=== PATIENT | male | born 1940 | race Caucasian/White ===

== ENCOUNTER 2019-06-04 13:26 | Outpatient (RCR) | payer MEDICARE, SELFPAY | END 2019-06-13 23:59 | disposition home or self-care (01) | LOC: WOUND 13:26 | PROVIDERS: Family Provider Registered Nurse; PCP Registered Nurse; Visit Provider Nurse Practitioner Family | DX: E11.621 Type 2 diabetes mellitus with foot ulcer (principal); L97.522 Non-pressure chronic ulcer of other part of left foot with fat layer exposed; L97.512 Non-pressure chronic ulcer of other part of right foot with fat layer exposed; I96 Gangrene, not elsewhere classified; S90.511A Abrasion, right ankle, initial encounter; X58.XXXA Exposure to other specified factors, initial encounter | CPT/HCPCS: 11042 ==

== ENCOUNTER 2019-06-30 13:29 | Outpatient (RCR) | payer MEDICARE, SELFPAY | END 2019-07-12 23:59 | disposition home or self-care (01) | LOC: WOUND 13:29 | PROVIDERS: Family Provider Registered Nurse; PCP Registered Nurse; Visit Provider Nurse Practitioner Family | DX: E11.621 Type 2 diabetes mellitus with foot ulcer (principal); L97.522 Non-pressure chronic ulcer of other part of left foot with fat layer exposed; S90.511A Abrasion, right ankle, initial encounter; X58.XXXA Exposure to other specified factors, initial encounter | CPT/HCPCS: 11042; 99214 ==

== ENCOUNTER 2019-08-11 14:35 | Outpatient (RCR) | payer MEDICARE, SELFPAY | END 2019-08-12 23:59 | disposition home or self-care (01) | LOC: WOUND 14:35 | PROVIDERS: Family Provider Registered Nurse; PCP Registered Nurse; Visit Provider Nurse Practitioner Family | DX: E11.621 Type 2 diabetes mellitus with foot ulcer (principal); L97.522 Non-pressure chronic ulcer of other part of left foot with fat layer exposed; S90.511A Abrasion, right ankle, initial encounter; X58.XXXA Exposure to other specified factors, initial encounter | CPT/HCPCS: 11042 ==

== ENCOUNTER 2019-09-08 15:41 | Outpatient (RCR) | payer MEDICARE, SELFPAY | END 2019-09-11 23:59 | disposition home or self-care (01) | LOC: WOUND 15:41 | PROVIDERS: Family Provider Registered Nurse; PCP Registered Nurse; Visit Provider Emergency Medicine | DX: E11.621 Type 2 diabetes mellitus with foot ulcer (principal); L97.523 Non-pressure chronic ulcer of other part of left foot with necrosis of muscle; S90.511A Abrasion, right ankle, initial encounter; X58.XXXA Exposure to other specified factors, initial encounter | CPT/HCPCS: 11042 ==

== ENCOUNTER 2019-09-08 16:59 | Inpatient (IN) | payer MEDICARE, SELFPAY ==
[2019-09-08 17:05] VITALS: BP 117/80; PULSE 104; RESP 20; TEMP 37; O2SAT 97; BMI 27.9
--- NOTE | 2019-09-08 17:20 | ED_ITS ---
HPI - Extremity Problem General: Chief complaint: Extremity Problem,Nontraumatic Stated complaint: SENT FROM WOUND CARE Time Seen by Provider: 09/08/19 17:03 History of Present Illness: HPI Narrative: 79-year-old male who sent to the emergency room from the wound clinic. He has been being seen at the wound clinic intermittently been absent from there for some time he previously had a transmetatarsal amputation by Dr. Diaz about a year and 1/2 to 2 years ago according to the patient. He does not have a primary care doctor he is rather noncompliant unfortunately he is has bilateral foot ulcers on the lateral aspect of the right foot proximal to the amputation line and also anterior to the ankle of the left foot. There is drainage from the right foot ulcer and it appears to be tracking up into the foot. There is more of a superficial ulcer on the anterior to the left ankle. He has redness and erythema and swelling on the right leg to the level of the thigh and hip. He denies any fever. Patient states he does have some cough that is been going on for last 3 to 4 months nothing seems to exacerbate it or relieve it. He has not had any change in sputum production. Denies any other symptoms no chest pain no abdominal pain normal bowel and bladder function for him which she states is usually very loose stools. He has known history of coronary disease and peripheral vascular disease and has had bilateral lower extremity angioplasty and stenting done in the past. MD Complaint: extremity pain and extremity swelling Onset (ago): week(s) Pain Consistency: intermittent Location: left and right Associated symptoms: Deny chest pain, fever(s) or rash Review of Systems Const: Denies: fever, chills, body aches, change in appetite, fatigue or malaise ENMT: Denies: throat pain, ear pain, nasal discharge or nasal congestion Card: Denies: chest pain, edema, shortness of breath on exertion or shortness of breath when lying down Resp: Reports: non-productive cough; Denies: shortness of breath or productive cough GI: Denies: abdominal pain, nausea, vomiting, vomiting blood, coffee grounds in vomit, diarrhea, constipation, bloating, blood in stool or black tarry stool : Denies: flank pain, painful urination, urinary frequency or urinary urgency Skin/Breast: Reports: other (Foot ulcers bilaterally); Denies: rash or itching PFSH ED PFSH: Medical History CAD (coronary artery disease) Diabetes Diabetic foot ulcer Heart failure with reduced ejection fraction Severely reduced ejection fraction 20% Hypertension PAD (peripheral artery disease) Syncope Due to hypoglycemia Surgical History 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) S/P peripheral artery angioplasty with stent placement Family History Denies family history of Hyperlipidemia Lung disease Hypertension Social History (Updated 09/08/19 @ 20:53 by Jaret Robert MD) Smoking and tobacco status: former smoker Alcohol intake: current Alcohol intake frequency: 3 or more drinks per day Alcohol type: beer Housing: Other Details: Lives alone Physical Exam Const: COMMON NORMALS: no apparent distress GENERAL APPEARANCE: cooperative and comfortable ORIENTATION/CONSCIOUSNESS: Yes awake, Yes oriented to person, Yes oriented to place and Yes oriented to time HENMT: COMMON NORMALS: normocephalic, head/scalp atraumatic, hearing grossly normal bilaterally, external ears normal, EAC's normal, TM's normal bilaterally, nasal mucous membranes and turbinates normal, moist oral mucous membranes and oropharynx normal HEAD & SCALP: normocephalic and atraumatic NOSE: nasal mucous membranes and turbinates normal EXTERNAL EAR: Yes external ears normal EXTERNAL AUDITORY CANAL: EAC's normal TYMPANIC MEMBRANE: TM's normal bilaterally Eye: COMMON NORMALS: PERRL, EOMs intact bilaterally, conjunctivae normal and no scleral icterus CONJUNCTIVA: Yes conjunctivae normal PUPIL: Yes PERRL Neck/C-Spine: COMMON NORMALS: full ROM, no lymphadenopathy, supple and no JVD Lymph: LYMPHATIC: no lymphadenopathy noted and no lymphedema noted Resp: COMMON NORMALS: normal respiratory effort, no retractions, no use of accessory muscles and clear to auscultation bilaterally AUSCULTATION: clear to auscultation bilaterally Cardio: COMMON NORMALS: no JVD, regular rate, regular rhythm and no murmurs RATE: regular rate RHYTHM: regular rhythm GI: COMMON NORMALS: soft to palpation and no hepatosplenomegaly AUSCULTAT ION: Yes normoactive bowel sounds PALPATION: Yes soft, No tender, No guarding and Yes no hepatosplenomegaly Extremity: COMMON NORMALS: normal to inspection, normal capillary refill, no clubbing, cyanosis or edema, no calf tenderness and no pedal edema NARRATIVE EXTREMITY EXAM: Lateral aspect of the right foot proximal to the suture line there is a irregular open ulcer about 2 cm round with what appears to be a tracking fistula deep this was not probed at the time in the emergency room. On the left anterior ankle at the flexure line there is a superficial ulcer that appears to be stage II. There is no active drainage. On the right leg there is erythema and swelling up to the level of the thigh and hip. Neuro: SENSORIUM/ORIENTATION: Yes oriented to person, Yes oriented to place and Yes oriented to time Skin: COMMON NORMALS: no rashes or lesions noted GENERAL SKIN EXAM: no rashes or lesions noted Course Vital Signs: Vital signs: Vital Signs Temperature 98.7 F 09/10/19 16:15 Pulse Rate 86 09/10/19 16:15 Respiratory Rate 18 09/10/19 16:15 Blood Pressure 128/78 09/10/19 16:15 Pulse Oximetry 97 09/10/19 16:15 MDM - Extremity (Nontraumatic) MDM Narrative: Medical decision making narrative: Admit for IV antibiotics and potential surgical exploration of the wound. Lab Data: Labs: Lab Results 09/08/19 09/08/19 Range/Units 17:40 17:40 WBC 7.2 (4.0-10.0) 10^3/ uL RBC 4.03 L (4.1-5.3) 10^6/u L Hgb 11.8 (11.7-16.6) g/dL Hct 38.0 L (42.0-52.0) % MCV 94.3 H (80-94) fL MCH 29.3 (28.0-34.0) pg MCHC 31.1 (30.0-36.0) g/dL RDW 14.7 (12.1-15.1) % Plt Count 246 (130-400) 10^3/c mm MPV 10.1 (7.4-10.4) fL Neut % (Auto) 84.1 % Lymph % (Auto) 7.1 % [place] % (Auto) 7.4 % Eos % (Auto) 1.0 % Baso % (Auto) 0.1 % Neut # (Auto) 6.0 (1.8-7.7) 10^3/u L Lymph # (Auto) 0.5 L (0.8-4.8) 10^3/u L [place] # (Auto) 0.5 (0.2-0.9) 10^3/u L Eos # (Auto) 0.1 (0.0-0.8) 10^3/u L Baso # (Auto) 0.0 (0.0-0.1) 10^3/u L Nucleated RBC % (a uto) 0 % Nucleated RBCs # 0.0 /100WBC Sodium 133 L (136-145) mmol/L Potassium 4.4 (3.5-5.1) mmol/L Chloride 96 L (98-107) mmol/L Carbon Dioxide 25 (22-29) mmol/L Anion Gap 16.4 (5-19) BUN 16 (8-23) mg/dL Creatinine 1.2 (0.7-1.2) mg/dL Glucose 166 H (65-115) mg/dL Calculated Osmolal ity 276 L (285-295) mOsm/k g Calcium 9.3 (8.5-10.5) mg/dL Total Bilirubin 0.7 (0.15-1.2) mg/dL AST 15 (0-40) U/L ALT 10 (0-41) U/L Alkaline Phosphata se 93 (40-130) IU/L Total Protein 7.1 (6.6-8.7) g/dL Albumin 3.5 (3.5-5.2) g/dL Globulin 3.6 (1.3-4.6) g/dL Discharge Plan Discharge Patient Disposition: Admitted As Inpatient Admit Provider: Jaret Robert Clinical Impression: Osteomyelitis, CAD (coronary artery disease), PAD (peripheral artery disease), Cellulitis Condition: Stable Discharge Orders: Discharge Order (Routine); Ordered 09/10/19 Ordered By: Rodriguez Luciano Discharge Diet: Cardiac and Diabetic Discharge Activity: Resume usual activity, Increase activity as tolerated and Limit activity as instructed Interventions: ED Discharge Assessment Last Done: 09/08/19 21:04 Discharge Date/Time: 09/08/19 21:06 Coding Level of Care Code 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
--- NOTE | 2019-09-08 17:25 | XR_ITS ---
WS: [id number] RIGHT FOOT: 3 VIEW(S) TECHNIQUE: AP, oblique and lateral. HISTORY: Diabetic ulcer with drainage. COMPARISON: 03/19/2018 Extensive amputation sites at the RIGHT foot. Amputation involving all metatarsals proximally. There is extensive soft tissue edema surrounding the amputation site. The bones are severely osteopenic. Soft tissue edema and vascular calcifications. No definite site of osteomyelitis is appreciated. Ther e is a soft tissue defect over the lateral foot measuring 11 x 7 mm seen only on the oblique image. XR/XR foot RT min 3V* [id number] IMPRESSION: 1. Extensive amputation involving the proximal metatarsals. 2. Soft tissue edema surrounding the amputation site. 3. Severe osteopenia. 4. Possible ulcer over the lateral foot. No definite osteomyelitis. Subtle leah nges of osteomyelitis would be difficult to visualize with this amount of osteo penia.
--- NOTE | 2019-09-08 17:25 | XR_ITS ---
WS: [id number] PORTABLE CHEST HISTORY: dyspnea/cough COMPARISON: 05/09/2017 Atelectasis and mild interstitial thickening at the lung bases. Small bilateral pleural effusions. Cardiac size: Mildly enlarged cardiac silhouette. Mediastinum/Aorta: Mild atherosclerosis aorta. No osseous abnormality seen. XR/XR chest 1V portable [id number] IMPRESSION: 1. Small bilateral pleural effusions and bibasilar areas of atelectasis. 2. Suspect mild pulmonary congestion.
--- NOTE | 2019-09-08 17:25 | USCV_ITS ---
Jose EduardoSyed remy Age: 79 Gender: M : 1940 Exam Date: 09/08/2019 18:42 Ordering Phys: Tommy Christiansen DO Technologist: Wilson Vanegas [place] [facility] [place] Indication: RT LEG PAIN AND EDEMA HISTORY: Lower extremity edema. Lower extremity pain. PROCEDURES: Venous duplex imaging was performed in only the right lower extremity. The following venous structures were evaluated: common femoral vein, profunda vein, proximal portion of the greater saphenous vein, superficial femoral vein, and the popliteal vein. In addition, the posterior tibial and peroneal trunk were evaluated. On the right side, the common femoral, superficial femoral, profunda femoral, popliteal, posterior tibial, greater saphenous veins and the peroneal trunk were identified and interrogated in the standard fashion. FINDINGS: Normal 2-D Doppler and augmentation and compressibility throughout the lower extremity venous structures. Additional imaging through the proximal calf veins also reveals no thrombus. Limited evaluation of the greater saphenous vein is patent with no thrombus. CONCLUSIONS No DVT right lower extremity. Dr. Meri Todd DO (Electronically Signed) Final Date: 09 September 2019 15:02 S
--- NOTE | 2019-09-08 17:25 | ECG_ITS ---
Measurements Intervals [place] Rate: 101 P: 46 NM: 212 QRS: 248 QRSD: 154 T: 18 QT: 376 QTc: 489 SINUS TACHYCARDIA WITH FIRST DEGREE AV BLOCK WITH OCCASIONAL VENTRICULAR PREMAT PREMATURE COMPLEXES POSSIBLE LEFT ATRIAL ENLARGEMENT [-0.1mV P WAVE IN V1/V2] RIGHT AXIS DEVIATION [QRS AXIS > 100] RIGHT BUNDLE BRANCH BLOCK [120+ ms QRS DURATION, UPRIGHT V1, 40+ ms S IN I/a I/aVL/V4/V5/V6] ANTEROSEPTAL MYOCARDIAL INFARCTION , OF INDETERMINATE AGE [40+ ms Q WAVE IN V1-V4] when compared to the prior echocardiogram compared to the prior EKG there is right bundle branch block now Electronically Signed On 09-09-2019 18:07:46 CDT by Jaret Valle M.D. [email or web address]
--- NOTE | 2019-09-08 17:25 | XR_ITS ---
WS: [id number] LEFT FOOT: 3 VIEW(S) TECHNIQUE: AP, oblique and lateral. HISTORY: diabetic ulcer COMPARISON: None available. Osteopenia. No acute fracture. Erosions at the first metatarsal head with soft tissue thickening og cent to the metatarsal head. Osteophytes from the anterior talus and the navicular. Diffuse soft tiss ue edema. Normal tarsal/metatarsal alignment. Ulceration is not definitely identified. XR/XR foot LT min 3V* [id number] IMPRESSION: 1. Diffuse soft tissue edema and vascular calcifications. 2. No definite soft tissue ulcer identified. 3. Erosions in the first metatarsal head. These could be due to gout or osteom yelitis. Additional spurring and degenerative changes in the talus and navicula r.
--- NOTE | 2019-09-08 17:25 | XR_ITS ---
WS: [id number] LEFT ANKLE: 3 VIEW(S) TECHNIQUE: AP, oblique(s) and lateral. HISTORY: Diabetic ulcer COMPARISON: None available. Bones are osteopenic with vascular calcifications. Diffuse soft tissue edema. Erosion or ulceration or osteomyelitis involving the medial malleolus. Thi s is age-indeterminate and may not be acute. Spurring and degenerative changes in the midfoot. Large osteophytes extend anteriorly from the anteri or talus. XR/XR ankle LT min 3V* [id number] IMPRESSION: Extensive soft tissue edema surrounding the ankle and vascular calcifications. Age-indeterminate erosion at the medial malleolus. May be from healed or acute osteomyelitis. Degenerative changes in the midfoot.
[2019-09-08 17:36] VITALS: PULSE 100
[2019-09-08 17:53] LABS: Basophils % 0.1 %; Eosinophils # 0.1 10^3/uL (0.0-0.8); Hemoglobin 11.8 g/dL (11.7-16.6); Lymphocytes # 0.5 10^3/uL (0.8-4.8); Lymphocytes % 7.1 %; Mean Corpuscular HGB Conc 31.1 g/dL (30.0-36.0); Mean Corpuscular Hemoglobin 29.3 pg (28.0-34.0); Mean Corpuscular Volume 94.3 fL (80-94); Mean Platelet Volume 10.1 fL (7.4-10.4); Monocytes # 0.5 10^3/uL (0.2-0.9); Monocytes % 7.4 %; Neutrophils % 84.1 %; Nucleated Red Blood Cells % 0 %; Platelet Count 246 10^3/cmm (130-400); Red Blood Count 4.03 10^6/uL (4.1-5.3); Red Cell Distribution Width 14.7 % (12.1-15.1); White Blood Count 7.2 10^3/uL (4.0-10.0)
[2019-09-08 18:31] LABS: Alanine Aminotransferase 10 U/L (0-41); Albumin Level 3.5 g/dL (3.5-5.2); Alkaline Phosphatase 93 IU/L (40-130); Anion Gap 16.4 (5-19); Aspartate Amino Transferase 15 U/L (0-40); Blood Urea Nitrogen 16 mg/dL (8-23); Calcium 9.3 mg/dL (8.5-10.5); Carbon Dioxide 25 mmol/L (22-29); Chloride 96 mmol/L (98-107); Globulin 3.6 g/dL (1.3-4.6); Glucose 166 mg/dL (65-115); Osmolality Calculated 276 mOsm/kg (285-295); Potassium 4.4 mmol/L (3.5-5.1); Sodium 133 mmol/L (136-145); Total Bilirubin 0.7 mg/dL (0.15-1.2); Total Protein 7.1 g/dL (6.6-8.7)
--- NOTE | 2019-09-08 19:09 | PM.HP ---
Providers/Chief Complaint Primary Care Provider: GISELA Bearden Chief Complaint: SENT FROM WOUND CARE History of Present Illness Syed Whitt is a 79 year old male who has history of type 2 diabetes, heart failure reduced ejection fraction, diabetic foot ulcers with peripheral arterial disease status post bilateral lower extremity angioplasty, transmetatarsal amputation by Dr. Diaz in 2017, noncompliant and failure to follow-up with his appointments at wound care clinic was sent to the ER from wound care clinic for worsening right foot ulcer. Patient is stating that he is living alone, tries to manage his daily activities by himself, has quit smoking, not taking any medications for his heart failure or chronic wounds. Patient is stating that he ran out of his medications couple of weeks ago. However not sure about his medications, he is not a reliable historian. He is able to tell me that his left foot gets blue intermittently, left foot is always swollen, he is denying excessive redness of right foot, purulent discharge, fever, sick contacts, recent traveling. Diagnostics in ER revealed normal hemodynamics, he is afebrile, does not meet sepsis criteria, x-ray of the foot was done, in my personal opinion it is showing chronic osteomyelitis changes, official report is pending Chest x-ray showing chronic fibrotic emphysematous changes along with mild pleural effusion, chest congestion is slightly better from previous x-ray EKG showing right bundle branch block, first-degree AV block, heart rate 101, Review of Systems Const: Denies: fever or chills Eyes: Denies: change in vision ENMT: Denies: throat pain Card: Denies: chest pain Resp: Reports: shortness of breath and non-productive cough GI: Denies: abdominal pain or nausea Musc: Denies: neck pain Skin/Breast: Reports: rash, redness, skin tenderness, changing lesion, non-healing lesion and chronic lesion; Denies: itching Neuro: Denies: headache Psych: Denies: anxiety Endo: Denies: excessive urination Renato/Lymph: Denies: easy bruising All/Imm: Denies: hives Medications/Allergies Home Medications Medication Instructions Recorded Confirmed Last Taken Type No Known Home Medications 09/08/19 09/08/19 Unknown History Allergies Allergy/AdvReac Type Severity Reaction Status Date / Time No Known Allergies Allergy Verified 09/08/19 17:15 PFSH Acute PFSH: Medical History CAD (coronary artery disease) Diabetes Diabetic foot ulcer Heart failure with reduced ejection fraction Hypertension PAD (peripheral artery disease) Syncope Due to hypoglycemia Surgical History 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) S/P peripheral artery angioplasty with stent placement Family History Denies family history of Hyperlipidemia Lung disease Hypertension Social History (Updated 09/08/19 @ 20:53 by Jaret Robert MD) Smoking and tobacco status: former smoker Alcohol intake: current Alcohol intake frequency: 3 or more drinks per day Alcohol type: beer Substance/Drug Use: never Housing: Other Details: Lives alone Vitals/I&O/Wt Last Vital Signs Temp 98.6 F 09/08/19 17:05 Pulse 100 09/08/19 17:36 Resp 20 H 09/08/19 17:05 BP 117/80 09/08/19 17:05 Pulse Ox 97 09/08/19 17:05 Weight last 48 hrs Weight 88.451 kg Physical Exam Narrative: EXAM NARRATIVE: Poor unkempt appearance, Appears stated age, Normal hemodynamics Pleasant to communicate S1, S2, he is showing mild signs of clinically fluid overloaded state He saturating well on room air Lungs auscultation reveals mild rhonchi bilaterally with reduced breath sounds at the bases without extra adventitious sounds Abdomen soft, nontender, nondistended bowel sound present Alert oriented x3, GCS 15 Bilateral lower extremity edema left greater than right Multiple foot ulcers Left foot ulcer: No purulent discharge, there is superficial sloughing of skin, venous stasis dermatitis, venous stasis wound, swelling 2+ Dorsalis pedis pulse feeble 1+ , cyanotic appearance, currently left leg is in dependent position Right foot ulcer Dorsum of right foot has active drainage of serosanguineous/bloody discharge, tunneled wound, no active purulent discharge seen, A small anterior leg wound with purulent base however no active discharge No active signs of cellulitis Data : 09/08/19 17:40 09/08/19 17:40 Micro: Microbiology 09/08/19 17:48 Blood Culture - Preliminary Blood SPECIMEN COLLECTED 09/08/19 17:40 Blood Culture - Preliminary Blood SPECIMEN COLLECTED A&P Assessment and plan (1) Osteomyelitis: Status: Acute (2) Non-compliant behavior: Status: Acute (3) Peripheral arterial disease: Status: Acute (4) Diabetes: Status: Acute (5) Venous stasis dermatitis of left lower extremity: Status: Acute Additional A&P Information Right tunneled wound with concern for acute on chronic osteomyelitis No active drainage or purulent cellulitis observed No active signs of sepsis Obtain blood cultures, personal interpretation of foot x-ray: Chronic osteomyelitis changes, official read is pending I would add vancomycin and Zosyn for now Consult podiatry: Dr. Diaz has been notified by myself Left foot severely reduced dorsalis pedis pulse with history of peripheral arterial disease and venous stasis dermatitis I would give him full dose Lovenox for now, ordered arterial Dopplers Patient is a former smoker, noncompliant with his medications, considering severely reduced ejection fraction, his candidacy for any intervention will be doubtful Congestive heart failure reduced ejection fraction: No acute exacerbation Severely reduced ejection fraction, 20%, patient is stating that he is not sure about AICD, I would start evidence-based medications for reduced heart failure at this point, review of previous records reveals that he was on aspirin statin and beta-lakisha Type 2 diabetes: Consistent carbohydrate diet, sliding scale moderate dose DNR/DNI Noncompliant behavior: I have counseled him regarding importance of medications for heart failure reduced ejection fraction, taking care of his wounds, regular follow-up with wound care clinic Attestations Medical Necessity Statement*: Anticipating his stay to cross more than 2 midnights for acute changes in his chronic osteomyelitis of right foot, currently requiring IV antibiotics, Time Spent in Patient Care: 50 Coding Level of Care Code 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
[2019-09-08 21:04] VITALS: BP 122/83; BP 135/97; PULSE 101; PULSE 76; RESP 18; RESP 20; TEMP 36.5; O2SAT 100; O2SAT 96
[2019-09-08 21:33] LABS: Glucose Point of Care 125 mg/dL (70-110)
[2019-09-08] MEDS: enoxaparin 100 mg/mL Syringe 90 MG SUBCUT (21:56)
[2019-09-08] MEDS: piperacillin-tazobactam 3.375 GM in sodium chloride 0.9% (plus) 50 ML IV (21:57)
[2019-09-08] MEDS: collagenase oint 30 gm 1 APPLIC TOPICAL (21:57)
[2019-09-08 23:26] VITALS: BP 118/68; PULSE 98; RESP 18; TEMP 36.7; O2SAT 97
--- NOTE | 2019-09-08 23:29 | PC.NURSE ---
discussed with pt code status. pt states that he does not want anything done for him. no compressions, meds or intubation.
[2019-09-09] VITALS (7 sets, daily range): BP systolic 97–118; BP diastolic 59–80; PULSE 84–100; RESP 20–28; TEMP 36.5–36.9; O2SAT 90–99
[2019-09-09 03:41] LABS: Basophils % 0.4 %; Eosinophils # 0.1 10^3/uL (0.0-0.8); Eosinophils % 2.2 %; Hematocrit 35.5 % (42.0-52.0); Hemoglobin 11.1 g/dL (11.7-16.6); Lymphocytes # 0.7 10^3/uL (0.8-4.8); Lymphocytes % 13.1 %; Mean Corpuscular HGB Conc 31.3 g/dL (30.0-36.0); Mean Corpuscular Hemoglobin 29.1 pg (28.0-34.0); Mean Corpuscular Volume 93.2 fL (80-94); Mean Platelet Volume 10.1 fL (7.4-10.4); Monocytes # 0.4 10^3/uL (0.2-0.9); Neutrophils # 3.9 10^3/uL (1.8-7.7); Neutrophils % 75.9 %; Nucleated Red Blood Cells % 0 %; Platelet Count 245 10^3/cmm (130-400); Red Blood Count 3.81 10^6/uL (4.1-5.3); Red Cell Distribution Width 14.7 % (12.1-15.1); White Blood Count 5.1 10^3/uL (4.0-10.0)
[2019-09-09 04:12] LABS: Anion Gap 17.8 (5-19); Blood Urea Nitrogen 16 mg/dL (8-23); Calcium 8.9 mg/dL (8.5-10.5); Carbon Dioxide 22 mmol/L (22-29); Chloride 98 mmol/L (98-107); Glucose 184 mg/dL (65-115); Osmolality Calculated 279 mOsm/kg (285-295); Potassium 3.8 mmol/L (3.5-5.1); Sodium 134 mmol/L (136-145)
[2019-09-09] MEDS: piperacillin-tazobactam 3.375 GM in sodium chloride 0.9% (plus) 50 ML IV ×2 (05:07→16:22)
[2019-09-09 06:45] LABS: Glucose Point of Care 151 mg/dL (70-110)
--- NOTE | 2019-09-09 07:28 | PM.CONSULT ---
Providers/Reason For Consult Consulting Physican/Specialty*: Jonathan Diaz D.P.M. Reason for Consult*: Bilateral foot ulcers Attending Physician: Jaret Robert MD Primary Care Provider: GISELA Bearden History of Present Illness History of Present Illness Seyd Whitt is a 79 year old diabetic male referred to the emergency room from wound care for shortness of breath and worsening of right foot wound. Patient has not been following up with his primary care provider and ran out of his medication several weeks ago. He has a history of CHF with significantly reduced EF, history of chronic wounds to both feet. Right foot transmetatarsal amputation [place] [address] Monroe. Patient endorses tenderness at the right foot, does not have pain while at rest, states that he has sharp pain whenever he stands on it. Patient denies fever or chills.he endorses shortness of breath and non-productive cough. Denies nausea or vomiting. Review of Systems General: Reports: 10 or more systems reviewed and unremarkable except in HPI and below Const: Denies: fever or chills Card: Denies: chest pain or palpitations Resp: Reports: shortness of breath and non-productive cough; Denies: productive cough GI: Denies: abdominal pain, nausea or vomiting : Denies: flank pain Musc: Reports: extremity pain, extremity swelling, joint pain, joint stiffness, limited range of motion and deformity; Denies: joint warmth Skin/Breast: Reports: sores, nail changes and change in hair; Denies: rash Neuro: Reports: numbness in extremities, changes in sensation and difficulty walking Psych: Denies: suicidal ideation Renato/Lymph: Denies: easy bruising Meds/Allergies Home Medications and Allergies Home Medications Medication Instructions Recorded Confirmed Last Taken Type No Known Home Medications 09/08/19 09/08/19 Unknown History Allergies Allergy/AdvReac Type Severity Reaction Status Date / Time No Known Allergies Allergy Verified 09/08/19 17:15 Current Medications Current Medications Generic Name Dose Route Start Last Admin Trade Name Freq PRN Reason Stop Dose Admin Collagenase 1 applic 09/08/19 21:45 09/08/19 21:57 Santyl TOPICAL 1 applic DAILY VESNA Administration Vancomycin HCl 1,750 mg/ 250 mls @ 166.667 mls/hr 09/08/19 19:00 09/08/19 19:22 Sodium Chloride IV 166.7 mls/hr Q18H VESNA Administration Protocol Piperacillin Sod/Tazobactam 50 mls @ 12.5 mls/hr 09/08/19 22:00 09/09/19 05:07 Sod 3.375 gm/ Sodium Chloride IV 12.5 mls/hr Q8H VESNA Administration Insulin Aspart 0 unit 09/08/19 21:20 09/08/19 21:31 Novolog SUBCUT Not Given WM&BEDTIME VESNA Protocol PFSH Acute PFSH: Medical History (Updated 09/09/19 @ 08:00 by Jonathan Diaz DPM) CAD (coronary artery disease) Diabetes Diabetic foot ulcer Heart failure with reduced ejection fraction Severely reduced ejection fraction 20% Hypertension PAD (peripheral artery disease) Syncope Due to hypoglycemia Surgical History 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) S/P peripheral artery angioplasty with stent placement Family History Denies family history of Hyperlipidemia Lung disease Hypertension Social History (Updated 09/08/19 @ 20:53 by Jaret Robert MD) Smoking and tobacco status: former smoker Alcohol intake: current Alcohol intake frequency: 3 or more drinks per day Alcohol type: beer Substance/Drug Use: never Housing: Other Details: Lives alone Vitals/I&O/Wt Last Vital Signs Temp 98.2 F 09/09/19 04:00 Pulse 98 09/09/19 04:00 Resp 22 H 09/09/19 04:00 BP 97/59 09/09/19 04:00 Pulse Ox 90 09/09/19 04:00 09/08/19 09/09/19 09/09/19 22:59 06:59 14:59 Intake Total 0 / 0 150 / 150 Output Total 525 / 525 Balance 0 / 0 -375 / -375 Weight last 48 hrs Weight 195 lb Physical Exam Narrative: EXAM NARRATIVE: GENERAL: Patient is alert and oriented ?3 and in no acute distress. The following is a focused bilateral lower extremity exam. VASCULAR: Dorsalis pedis and posterior tibial arteries nonpalpable bilaterally. Capillary refill time less than 5 seconds to the distal hallux left foot and TMA stump right foot. Calf is supple and nontender proximally and distally. Diminished hair growth at legs and feet. +1 pitting edema bilateral lower extremities. NEUROLOGICAL: Protective sensation intact 0/10 sites, tested with [place] monofilament to bilateral feet. DERMATOLOGICAL: Full-thickness wound at the anterior ankle bilaterally with fibro-granular base no significant periwound erythema, no purulent drainage has epithelial margin not exposed to tendon or joint capsule. No proximal lymphangitic streaking from these wounds. Of most concern is patient's on plantar lateral aspect the right foot sub-cuboid this has a largely fibrotic and slightly macerated base/margin probes deep consistent with sinus tract, unable to probe directly to bone, serosanguineous drainage, no proximal lymphangitic streaking directly from this wound appreciated on this morning's exam. Dystrophic toenails 1 through 5 left foot with thickening and discoloration. Diffusely dry skin to lower extremities bilaterally. Lower extremity integument is thin and atrophic with decreased texture and turgor. No warmth or erythema at the posterior calf bilaterally. MUSCULOSKELETAL: Tenderness to palpation at the right foot plantar wound. Status post right transmetatarsal amputation. Ankle joint dorsiflexion is to neutral bilaterally. No pain with calf squeeze bilaterally. Data Micro: Micro: Microbiology 09/08/19 17:48 Blood Culture - Pr eliminary Blood [facility] 09/08/19 17:40 Blood Culture - Pr eliminary Blood [facility] Other Data: Other data: X-rays right foot reviewed by me taken in the emergency department. M?nckeberg's arteriosclerosis appreciated at posterior tibial artery appreciated on the lateral view. Osteopenia likely secondary to disuse globally about the right. Able to appreciate wound on the lateral view this is sub-cuboid no soft tissue emphysema, no foreign body or cortical irregularities appear chronic in nature in comparison to previous evaluations. Also reviewed YURI studies performed 09/27/2017 left ankle-brachial index 0.67, right 0.84 TBI on the left 0.23, no TBI on the right secondary to transmetatarsal imitation. Updated vascular studies pending. A&P Assessment and plan (1) Chronic venous insufficiency of lower extremity: Status: Acute (2) Diabetic peripheral neuropathy associated with type 2 diabetes mellitus: Status: Acute (3) PAD (peripheral artery disease): Status: Acute (4) Chronic osteomyelitis of right foot: Status: Acute (5) Non-pressure chronic ulcer of left ankle with fat layer exposed: Status: Acute (6) Non-pressure chronic ulcer of right ankle with fat layer exposed: Status: Acute Patient examined and evaluated, findings and treatment options were discussed with patient at length. Chronic low-grade osteomyelitis suspected of right foot involving the cuboid and potentially anterior calcaneus, patient is afebrile with no leukocytosis and overall picture of right foot clinically is stable, no adonis purulence on this morning exam, no proximal lymphangitic streaking. Performed sharp debridement of right plantar foot wound sub-cuboid. Will continue with Santyl to this wound along with 4 x 4 gauze and Kerlix. At this point I would expect waxing and waning of the right plantar foot wound due to low-grade underlying osteomyelitis will likely get close to healing and then re-ulcerate, at this time patient is not a operative candidate and he is clinically stable would avoid surgical intervention at this time at the very best would entail surgical debridement with bone biopsy for long-term antibiotics versus higher level of amputation I would avoid this given his current comorbidities. Would avoid compressive dressings, lymphedema wraps would be appropriate. Order for YURI/TBI left foot and pulse volume recordings placed. Venous Doppler ordered while in ED. Anterior ankle wounds Izquierdo grade 2 are clinically stable these were dressed with alginate, sterile 4 x 4's and Kerlix. No surgical intervention during this hospitalization plan from a podiatry standpoint in regards to his wounds to left and right foot. These can continue to be managed outpatient. Encouraged patient compliance with regular follow-up with primary care provider. Patient to follow-up at wound care on discharge. Recommend Darco offloading shoe with peg hole insert to the right lower extremity, patient has been dispensed this type of shoe by [facility] in the past would continue with this modality for offloading. Coding Level of Care Code Acute Hydraulic Punch Press Operator for Maia Alexander Diagnoses Chronic venous insufficiency of lower extremity I87.2 Diabetic peripheral neuropathy associated with type 2 diabetes mellitus E11.42 PAD (peripheral artery disease) I73.9 Chronic osteomyelitis of right foot M86.671 Non-pressure chronic ulcer of left ankle with fat layer exposed L97.322 Non-pressure chronic ulcer of right ankle with fat layer exposed L97.312 Comment CPT code 20429.
--- NOTE | 2019-09-09 07:43 | USCV_ITS ---
Syed Whitt Age: 79 Gender: M : 1940 Exam Date: 09/09/2019 08:51 Ordering Phys: Jonathan Diaz DPM Technologist: Exam Location: [facility] [place]_ Indication: DECREASED PULSES RIGHT LEFT Brachial 112.00 mmHg Brachial 111.00 mmHg Pressure (mmHg) Waveform Pressure (mmHg) Waveform 45.00 TUFTING CREELER 48.00 41.00 DPA 44.00 0.40 Ankle/Brachial Index 0.43 Pre-Exercise Toe Pressure 39.00 Pre-Exercise Toe/Brachial Index 0.35 FINDINGS Markedly diminished resting ABIs bilaterally Diminished resting TBI on the left side CONCLUSIONS Features of severe obstructive peripheral artery disease bilaterally Dr Gigi Lynch MD [facility] (Electronically Signed) Final Date: 10 September 2019 09:00 S
[2019-09-09 08:44] LABS: C Reactive Protein 42.8 mg/L (0.0-4.9)
[2019-09-09 09:21] LABS: Erythrocyte Sedimentation Rate 17 mm/hr (0-10)
[2019-09-09] MEDS: aspirin 81 mg EC Tablet PO (09:26)
[2019-09-09] MEDS: atorvastatin 40 mg Tablet PO (09:26)
[2019-09-09] MEDS: lisinopril 5 mg Tablet PO (09:26)
[2019-09-09] MEDS: metoprolol succinate ER (24 HR) 25 mg Tablet 12.5 MG PO (09:26)
[2019-09-09] MEDS: collagenase oint 30 gm 1 APPLIC TOPICAL (09:27)
[2019-09-09 11:19] LABS: Glucose Point of Care 227 mg/dL (70-110)
--- NOTE | 2019-09-09 11:44 | PC.CHAP ---
Pastoral Care Encounter/Spiritual Assessment Type of Contact [X] Declined cotton chopper visit [] Patient/Family/Request visit [] Outpatient visit [] Follow-up visit [] Physician referral [] Code/Alert [] Routine visit [] Staff referral [] Actively dying [] Patient sleeping [] Family support [] [] Out of room [] Palliative care [] [] Receiving care in room [] Pre-surgical visit [] Trauma [] Long length of stay [] ICU visit [] Other: Relational/Emotional Strength [] Patient feels connected with others/family/visitors/staff [] Distress [] Loneliness/isolation [] Abandonment Spirituality of Patient [] Person of Lorie [] Attends [employer] of their Lorie [] Believes in Prayer [] Reads Bible or Mormon materials [] There are Spiritual issues to be addressed Electro Mechanical Technician Interventions [] Prayer [] Active listening [] Non-anxious presence [] Spiritual/emotional support [] Crisis/trauma care [] Spiritual counseling [] Bereavement support [] Provided bereavement packet [] Provided Bible/devotional materials [] Provided toy/stuffed animal, coloring book to patient or family member [] Provided Communion [] Anointing/[place] [] Salvation [] Completed spiritual assessment [] Other: Impact on Illness or Injury [] Angry [] Fearful [] Anxious [] Often cries [] Exhaustion [] Unable to work [] Unable to attend baptist [] Unable to walk/stand [] Unable to read [] Unable to drive [] Unable to eat/drink [] Unable to sleep [] Unable to be with family [] Patient intubated [] Other: Summary Declined cotton chopper visit Time spent with patient 5 mins
--- NOTE | 2019-09-09 12:24 | USCV_ITS ---
Syed Whitt Age: 79 Gender: M : 1940 Exam Date: 09/09/2019 14:57 Ordering Phys: Rodriguez Luciano MD Technologist: Wilson Vanegas [place] [facility] [place] Indication: IE BP: 119 / 60 HR: 86 Rhythm: Sinus Technical Quality: Suboptimal MEASUREMENTS (Male / Female) Normal Values 2D ECHO LV Diastolic Diameter PLAX 5.9 cm 4.2 - 5.9 / 3.9 - 5.3 cm LV Systolic Diameter PLAX 5.0 cm IVS Diastolic Thickness 0.9 cm 0.6 - 1.0 / 0.6 - 0.9 cm IVS Systolic Thickness 1.3 cm LVPW Diastolic Thickness 1.1 cm 0.6 - 1.0 / 0.6 - 0.9 cm LVPW Systolic Thickness 1.1 cm LVOT Diameter 2.1 cm LV Ejection Fraction 2D Teich 32.4 % LV Ejection Fraction MOD 2C 38.4 % LV Ejection Fraction 2C AL 37.4 % LA Diameter 4.7 cm LA Width 5.5 cm LA Height 5.4 cm RA Width 4.8 cm RA Height 5.8 cm M-MODE LV Diastolic Diameter MM 6.7 cm 4.2 - 5.9 / 3.9 - 5.3 cm LV Systolic Diameter MM 5.5 cm LV Ejection Fraction MM Teich 35.6 % IVS Diastolic Thickness MM 0.9 cm 0.6 - 1.0 / 0.6 - 0.9 cm IVS Systolic Thickness MM 1.3 cm LVPW Diastolic Thickness MM 1.0 cm 0.6 - 1.0 / 0.6 - 0.9 cm LVPW Systolic Thickness MM 1.6 cm RV Diastolic Diameter MM 1.6 cm Aortic Annulus Diameter 3.6 cm LA Ao Ratio MM 1.3 MV E Point Septal Separation 3.2 cm DOPPLER AV Peak Velocity 100.0 cm/s LVOT Peak Velocity 52.0 cm/s AV Area Cont Eq vti 1.4 cm squared AV Area Cont Eq pk 1.7 cm squared MV Area PHT 5.0 cm squared Mitral E to A Ratio 3.6 MV E' Velocity 5.0 cm/s Mitral E to MV E' Ratio 25.9 Mitral E to LV E' Lateral Ratio 21.4 Mitral E to LV E' Septal Ratio 33.9 TR Peak Velocity 343.0 cm/s TR Peak Gradient 47.2 mmHg TV Peak E Velocity 111.0 cm/s Right Atrial Pressure 3.0 mmHg Pulmonary Artery Systolic Pressu 50.1 mmHg FINDINGS Left Ventricle Dilated left ventricle. Severely decreased left ventricular systolic function. Left ventricular ejection fraction is estimated at 25 %. Global left ventricular hypokinesis with severe hypokinesis of septal wall. Abnormal septal motion consistent with conduction abnormality. Grade III diastolic dysfunction (restrictive filling pattern), severely elevated filling pressures. Right Ventricle Right ventricle not well visualized. Right ventricular systolic pressure 50.1 mmHg. Right Atrium Normal right atrial size. Right atrial pressure estimated at 3 mmHg. Left Atrium Mildly increased left atrial size. Mitral Valve Moderate mitral annular calcification. No mitral valve stenosis. Trace to mild mitral valve regurgitation. Aortic Valve Aortic valve not well visualized. No aortic valve stenosis. No aortic valve regurgitation. Tricuspid Valve Structurally normal tricuspid valve. Mild tricuspid valve regurgitation. Pulmonic Valve Pulmonic valve not well visualized. Pericardium No pericardial effusion. Aorta Normal-sized aortic root. CONCLUSIONS 1. Dilated left ventricle. Severely decreased left ventricular systolic function. Left ventricular ejection fraction is estimated at 25 %. Global left ventricular hypokinesis with severe hypokinesis of septal wall. Grade III diastolic dysfunction (restrictive filling pattern), severely elevated filling pressures. 2. No significant valvular abnormality. 3. Moderate pulmonary hypertension with pulmonary artery pressure estimated at 50 mmHg. 4. When compared to previous echocardiogram dated 04/13/2017, there may not have been any significant change. Andie Portillo MD (Electronically Signed) Final Date: 09 September 2019 16:40 S
[2019-09-09 17:10] LABS: Glucose Point of Care 77 mg/dL (70-110)
[2019-09-09] MEDS: FUROsemide 10 mg/mL SDV 4mL 40 MG IVP (18:27)
--- NOTE | 2019-09-09 18:32 | P.PN_ITS ---
Subjective Subjective: Interval history: He gets short of breath easily. States has not been previously on oxygen. Reports extremity swelling. Also used to smoke in the past, but not recently. Intermittent cough productive. No chest pain. He states has heard he may have congestive heart failure, although states this is mostly new to him. Was not aware that his ejection fraction was 20%. Has been getting progressively more tired recently. In the chart listed history of peripheral artery disease with peripheral angiogram in 2017. Does report history of coronary disease with cardiac st enting, but states this has been about 30 years ago. No current angiogram or stress test since then. Does not follow with a ash collector. Vitals/I&O/Wt Last Vital Signs Temp 98.1 F 09/09/19 16:00 Pulse 87 09/09/19 16:00 Resp 28 H 09/09/19 16:00 BP 104/69 09/09/19 16:00 Pulse Ox 94 09/09/19 16:00 09/09/19 09/09/19 09/09/19 06:59 14:59 22:59 Intake Total 150 / 150 706 / 706 250 / 956 Output Total 525 / 525 Balance -375 / -375 706 / 706 250 / 956 Weight last 48 hrs Weight 88.451 kg Physical Exam Const: COMMON NORMALS: no apparent distress and oriented x3 OTHER: Calm, in good spirits, joking around with nursing staff. Slightly difficult to keep his attention. HENMT: COMMON NORMALS: oropharynx normal Neck/C-Spine: COMMON NORMALS: no JVD Resp: COMMON NORMALS: normal respiratory effort AUSCULTATION: diminished lung sounds Cardio: COMMON NORMALS: no JVD, regular rhythm, S1 normal heart sound, S2 normal heart sound and no murmurs RHYTHM: regular rhythm HEART SOUNDS: S1 normal and S2 normal GI: COMMON NORMALS: normal to inspection, nondistended, normoactive bowel sounds, soft to palpation and non-tender PALPATION: Yes soft Extremity: COMMON NORMALS: no joint enlargement GENERAL: Yes edema (trace) RIGHT LOWER EXTREMITY: Yes foot & digits (Past TMA amputation. Ulceration anterior dorsal ankle, plantar wound) LEFT LOWER EXTREMITY: Yes ankle joint (Ulceration anterior dorsal ankle) Neuro: COMMON NORMALS: oriented x3 and moves all extremities Skin: COMMON NORMALS: no rashes or lesions noted GENERAL SKIN EXAM: no rashes or lesions noted Data : 09/09/19 03:10 09/09/19 03:10 Micro: Microbiology 09/08/19 17:48 Blood Culture - Preliminary Blood NEGATIVE TO DATE 09/08/19 17:40 Blood Culture - Preliminary Blood NEGATIVE TO DATE A&P Assessment and plan (1) CHF (congestive heart failure): Acute systolic CHF exacerbation, with chronic cardiomyopathy of unclear etiology, pulmonary edema, although his dyspnea I suspect is multifactorial, possibly with some undiagnosed COPD as well, formally a smoker, with diminished air entry, intermittent cough. Echocardiogram with known low ejection fraction at 20% back in 2017. Recently with fatigue, dyspnea on even low exertion. Reassessed by echocardiogram, with ejection fraction persistent 25%. He has been restarted on aspirin, statin, ANUJ inhibitor. Will assess A1c. He is agreeable for assessment by stress testing tomorrow, with previously known coronary disease with cardiac stenting about 30 years ago. Also with known peripheral arterial disease. Appreciate cardiology assessment regarding cardiomyopathy, with severely depressed ejection fraction. Symptomatic CHF. Status: Acute (2) Osteomyelitis: Suspected possible mild chronic osteomyelitis. Discussed with podiatry. Given the chronic nature and at this time concern for candidacy for surgical intervention given cardiac health, overall condition, recommendation for treatment of soft tissue infection with 2 weeks of doxycycline on discharge with follow-up with wound care clinic, and referral for podiatry in office from there. Pending interpretation US YURI. Status: Acute (3) Peripheral arterial disease: No DVT. Pending US YURI. Status: Acute (4) Diabetes: Check A1c. Consistent carbohydrate diet. Status: Acute (5) Venous stasis dermatitis of left lower extremity: Status: Acute (6) Non-compliant behavior: Status: Acute Attestations Medical Necessity Statement*: Continue admission for assessment and management of dyspnea with CHF exacerbation, chronic nonhealing lower extremity wounds. Coding Level of Care Code Acute Systems Checkout Mechanic for [facility] Fwd Diagnoses CHF (congestive heart failure) I50.9 Osteomyelitis M86.9 Peripheral arterial disease I73.9 Diabetes E11.9 Venous stasis dermatitis of left lower extremity I87.2 Non-compliant behavior R46.89
[2019-09-09 21:09] LABS: Glucose Point of Care 176 mg/dL (70-110)
[2019-09-09] MEDS: enoxaparin 40 mg/0.4 mL Syringe SUBCUT (21:23)
[2019-09-09] MEDS: ipratropium-albuterol 3 mL Neb INHALATION (21:50)
[2019-09-10] VITALS (8 sets, daily range): BP systolic 110–128; BP diastolic 68–78; PULSE 80–86; RESP 17–22; TEMP 36.5–37.1; O2SAT 88–97
[2019-09-10] MEDS: piperacillin-tazobactam 3.375 GM in sodium chloride 0.9% (plus) 50 ML IV (00:15)
[2019-09-10] MEDS: ipratropium-albuterol 3 mL Neb INHALATION (04:24)
[2019-09-10] MEDS: FUROsemide 10 mg/mL SDV 4mL 40 MG IVP (05:56)
[2019-09-10 06:56] LABS: Glucose Point of Care 82 mg/dL (70-110)
--- NOTE | 2019-09-10 07:00 | NMCV_ITS ---
NM rita perf SPECT r/s* [id number] Syed Whitt Age: 79 Gender: M : 1940 Exam Date: 09/10/2019 07:00 Ordering Phys: Rodriguez Luciano MD Technologist: LESLEE Arias Exam Location: [facility] [place] Indications: CHEST PAIN STRESS TEST Please [facility] for [facility] IMAGE PROTOCOL Rest/Stress 1 Lexiscan Day Radiopharmaceutical Dose (mCi) Administration Site Administered by Rest: Tc-99m 10.7 IV LESLEE Arias Sestamibi Stress:Tc-99m 32.3 IV LESLEE Wright Sestamibi Rest: 10-Sep-2019 60 Discovery 630 Stress: 10-Sep-2019 30 Discovery 630 0.4mg Lexiscan. Supine position only as patient was unable to lay prone. SPECT RESULTS Technical Quality: Excellent Raw Data Analysis: Normal Image Corrections: No attenuation or motion correction applied Summed Stress Score: 25 Summed Rest Score: 20 Summed Difference Score: 5 PERFUSION FINDINGS Large size perfusion abnormality of severe severity of mid to apical anterior, entire inferior, mid lateral and apical huston on rest and supine stress images. FUNCTIONAL RESULTS (calculated via Gated SPECT) Stress Image LV EF (%): 20 Stress EDV (mL):260 TID: 0.98 Stress ESV (mL):207 FUNCTIONAL FINDINGS: The left ventricle is dilated. Transient Ischemia Dilatation of 0.98. There is severely reduced left ventricular systolic function. The left ventricular ejection fraction is markedly reduced with a value of 20%. Severe global hypokinesis more pronounced in mid to apical anterior, inferior and apical huston. Markedly increased end-diastolic and end-systolic volumes. IMPRESSIONS 1. Large size predominantly fixed perfusion abnormality of severe severity of mid to apical anterior, entire inferior, mid lateral and apical huston. This is suggestive of old myocardial infarction or scarring in multiple vessels ( left anterior descending, right coronary artery and circumflex artery territory). 2. The left ventricular ejection fraction is markedly reduced with a value of 20%. 3. Severe global hypokinesis more pronounced in mid to apical anterior, inferior and apical huston. 4. No coronary ischemia based on the study. 5. No prior similar studies to compare. Andie Portillo MD (Electronically Signed) Final Date: 10 September 2019 11:41 S
[2019-09-10 07:01] LABS: Anion Gap 21.7 (5-19); Blood Urea Nitrogen 21 mg/dL (8-23); Calcium 9.4 mg/dL (8.5-10.5); Carbon Dioxide 19 mmol/L (22-29); Chloride 99 mmol/L (98-107); Glucose 88 mg/dL (65-115); Osmolality Calculated 278 mOsm/kg (285-295); Potassium 3.7 mmol/L (3.5-5.1); Sodium 136 mmol/L (136-145); Vancomycin Trough 18.9 ug/mL (10-15)
--- NOTE | 2019-09-10 08:00 | ECG_ITS ---
NAME OF STUDY: LEXISCAN SESTAMIBI STRESS TEST INDICATION: CHF, NOTE: Please note that this is the electrocardiogram portion of the Lexiscan/Sestamibi stress test. The perfusion scan will be documented separately. DATA: Baseline heart rate was 81 beats per minute. Baseline blood pressure was 124/70 millimeters of mercury. Target heart rate was 143. Maximum heart rate achieved was 111. which was 77 % of the predicted target heart rate. Maximum blood pressure was 124/75 millimeters of mercury. The reason for ending the test was completion of the protocol. The patient did not experience any symptoms. ELECTROCARDIOGRAM: BASELINE: Sinus rhythm. Left axis. Right bundle branch block EXERCISE: After Lexiscan injection, no ST-T changes suggestive of ischemic noted. Occasional PVCs noted. CONCLUSION: Please note due to baseline abnormality of the EKG specificity and sensitivity of the EKG portion of LexiScan MIBI stress test will be low 1. EKG not suggestive of ischemia 2. Lexiscan injection unremarkable. 3. Perfusion scan will be documented separately. Electronically Signed On 09-10-2019 13:31:17 CDT by Jaret Valle M.D. [email or web address]
[2019-09-10] MEDS: regadenoson 0.4 Mg/5 ml Syringe IVP (08:34)
[2019-09-10] MEDS: atorvastatin 40 mg Tablet PO (10:15)
[2019-09-10] MEDS: metoprolol succinate ER (24 HR) 25 mg Tablet 12.5 MG PO (10:15)
[2019-09-10] MEDS: aspirin 81 mg EC Tablet PO (10:16)
[2019-09-10] MEDS: lisinopril 5 mg Tablet PO (10:16)
[2019-09-10 10:58] LABS: Glucose Point of Care 104 mg/dL (70-110)
[2019-09-10] MEDS: collagenase oint 30 gm 1 APPLIC TOPICAL (11:15)
--- NOTE | 2019-09-10 11:54 | PM.CONSULT ---
Providers/Reason For Consult Consulting Physican/Specialty*: Dr. Portillo, cardiology Reason for Consult*: Systolic congestive heart failure Attending Physician: Rodriguez Luciano Primary Care Provider: GISELA Bearden History of Present Illness History of Present Illness Syed Whitt is a 79 year old male with past medical history of hypertension, diabetes mellitus, chronic systolic congestive heart failure, history of diabetic foot, tobacco abuse, CKD stage 3, PAD with with bilateral intervention, history of right foot transmetatarsal amputation in 2017 and CAD (remote history of VT with intervention and unknown vessel 20-25 years back in [place]). He is a poor historian and does have history of noncompliance. He last saw Dr. Valle as an outpatient in 05/2017. He presented to the hospital from wound care for shortness of breath. he states for the past month he has not been doing well. He complains of [place], fatigue for last month. CXR showed small bilateral pleural effusions and bibasilar area of atelectesis and mild pulmonary congestion. EKG showed sinus tachycardia with first-degree AV block with occasional PVC. Possible left atrial enlargement. Right axis deviation. Right bundle branch block. Possible anterior VT of indeterminate age. He was diuresed with lasix and feels better today. Mild chronic osteomyelitis suspected and skin and soft tissue infection was treated. Review of Systems Const: Reports: fatigue; Denies: fever or chills Eyes: Denies: change in vision ENMT: Denies: throat pain Card: Denies: chest pain Resp: Reports: shortness of breath and non-productive cough GI: Denies: abdominal pain or nausea Musc: Reports: extremity swelling; Denies: neck pain Skin/Breast: Reports: rash, redness, skin tenderness, changing lesion, non-healing lesion and chronic lesion; Denies: itching Neuro: Denies: headache Psych: Denies: anxiety Endo: Denies: excessive urination Renato/Lymph: Denies: easy bruising All/Imm: Denies: hives Meds/Allergies Home Medications and Allergies Home Medications Medication Instructions Recorded Confirmed Last Taken Type aspirin 81 mg PO DAILY #30 tab 09/10/19 Unknown Rx atorvastatin 40 mg PO DAILY #30 tab 09/10/19 Unknown Rx doxycycline hyclate 100 mg PO BID 14 Days #28 tab 04/29/20 Unknown Rx furosemide See Rx Instructions .ROUTE 04/29/20 Unknown Rx .COMPLEX #30 tab lisinopril 5 mg PO DAILY #30 tab 09/10/19 Unknown Rx metoprolol succinate 12.5 mg PO DAILY #15 tab 09/10/19 Unknown Rx Allergies Allergy/AdvReac Type Severity Reaction Status Date / Time No Known Allergies Allergy Verified 09/08/19 17:15 Current Medications Current Medications Generic Name Dose Route Start Last Admin Trade Name Freq PRN Reason Stop Dose Admin Albuterol/Ipratropium 3 ml 09/09/19 21:00 09/10/19 08:39 Duoneb INHALATION Not Given Q6H.RESPIRATORY VESNA Aspirin 81 mg 09/09/19 09:00 09/10/19 10:16 Aspirin Ec PO 81 mg DAILY VESNA Administration Atorvastatin Calcium 40 mg 09/09/19 09:00 09/10/19 10:15 Lipitor PO 40 mg DAILY VESNA Administration Collagenase 1 applic 09/08/19 21:45 09/10/19 11:15 Santyl TOPICAL 1 applic DAILY VESNA Administration Enoxaparin Sodium 40 mg 09/09/19 21:00 09/09/19 21:23 Lovenox SUBCUT 40 mg Q24H VESNA Administration Furosemide 40 mg 09/09/19 18:15 09/10/19 05:56 Lasix IVP 40 mg Q12H VESNA Administration Piperacillin Sod/Tazobactam 50 mls @ 12.5 mls/hr 09/08/19 22:00 09/10/19 00:15 Sod 3.375 gm/ Sodium Chloride IV 12.5 mls/hr Q8H VESNA Administration Vancomycin HCl 1,750 mg/ 250 mls @ 166.667 mls/hr 09/09/19 13:00 09/10/19 11:00 Sodium Chloride IV Not Given Q18H VESNA Protocol Insulin Aspart 0 unit 09/08/19 21:20 09/10/19 11:32 Novolog SUBCUT Not Given WM&BEDTIME VESNA Protocol Lisinopril 5 mg 09/09/19 09:00 09/10/19 10:16 Prinivil PO 5 mg DAILY VESNA Administration Metoprolol Succinate 12.5 mg 09/09/19 09:00 09/10/19 10:15 Toprol Xl PO 12.5 mg DAILY VESNA Administration PFSH Acute PFSH: Medical History CAD (coronary artery disease) Diabetes Diabetic foot ulcer Heart failure with reduced ejection fraction Severely reduced ejection fraction 20% Hypertension PAD (peripheral artery disease) Syncope Due to hypoglycemia Surgical History 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) S/P peripheral artery angioplasty with stent placement Family History Denies family history of Hyperlipidemia Lung disease Hypertension Social History (Updated 09/08/19 @ 20:53 by Jaret Robert MD) Smoking and tobacco status: former smoker Alcohol intake: current Alcohol intake frequency: 3 or more drinks per day Alcohol type: beer Housing: Other Details: Lives alone Vitals/I&O/Wt Last Vital Signs Temp 98.7 F 09/10/19 11:22 Pulse 86 09/10/19 11:22 Resp 18 09/10/19 11:22 BP 128/78 09/10/19 11:22 Pulse Ox 97 09/10/19 11:22 09/09/19 09/10/19 09/10/19 22:59 06:59 14:59 Intake Total 300 / 1006 Output Total 700 / 700 1035 / 1735 Balance -400 / 306 -1035 / -729 Weight last 48 hrs Weight 195 lb Physical Exam Narrative: EXAM NARRATIVE: Gen: NAD, sitting comfortably in NAD CVS: S1, S2; No murmur or gallop appreciated RS: CTAB/L, No wheezes, rhonchi and rales EXt: Right foot (transmetatarsal amputation), 1+ leg edema; Right Post tibial and left dorsalis pedis present with doppler FORENSIC SOCIAL WORKER: AAOx 3, No FND Data Micro: Micro: Microbiology 09/08/19 17:48 Blood Culture - Pr eliminary Blood NEGATIVE TO BRITTANY E 09/08/19 17:40 Blood Culture - Pr eliminary Blood NEGATIVE TO BIRTTANY E Imaging^: Other Imaging: Radiologist's impression: TTE (04/13/2017) CONCLUSIONS Mildly dilated left ventricle with a severely depressed ejection fraction of 20%.severe diffuse hypokinesia, more so of the septum and anteroseptal segments. Mildly dilated right atrium, right ventricle and the left atrium. Thickened aortic and mitral valves is to mild mitral annular calcification. Mild mitral and tricuspid regurgitation. Mild pulmonary hypertension with an estimated pulmonary artery peak systolic pressure of 45 mmHg. This could be an underestimation because of the poor Doppler signals There is no significant pericardial effusion. There are no intracardiac masses. No previous study is available for comparison. Lower extremity arterial Doppler 27 Sep 2017 FINDINGS: The right brachial arterial pressure is 149 mm Hg. The right ankle dorsalis pedis arterial pressure is 127 mm Hg. The right ankle posterior tibial arterial pressure is 102 mm Hg. No right first toe arterial pressure obtained. The left brachial arterial pressure is 151 mm Hg. The left ankle posterior tibial arterial pressure is 101 mm Hg. The left first toe arterial pressure is 35 mm Hg. IMPRESSION: 1. Right ankle YURI: 0.84. No right toe arterial pressure. 2. Left ankle YURI: 0.67. 3. Left TBI: 0.23. Peripheral angiogram 28 November 2016 Peripheral Cath Diagnostic Procedure:Abdominal aortic angiography, Lower extremities' angiography Conclusions Peripheral Procedure Description Critical limb ischemia of right leg right and foot with pain at rest despite of optimization of medical therapy Severe claudication with chronically occluded ostial right SFA reconstituted above the popliteal artery with collaterals. Moderate claudication with mid 90% stenotic left SFA. Paige grade II,category 4:Del stage III. Procedure Summary Left common femoral artery was used to performed peripheral angiogram and intervention of the right superficial femoral artery Abdominal aortic angiogram was performed which showed luminal irregularity without any aneurysm. Both renal arteries were visualized and normal. Ostial right common iliac artery has 60% eccentric stenosis while left common iliac arteries showed luminal irregularities. The right and left external and internal iliac arteries showed luminal irregularities. Both profunda femoral arteries showed luminal irregularities. Right ostial SFA has chronic occlusion which reconstitute just above the popliteal artery in the middle of the SFA Successful Plain Balloon angioplasty followed by Drug-eluting stents to ostial to distal SFA Right superficial femoral artery was approached through left common femoral artery. Highly calcified chronically occluded ostial right superficial femoral artery was crossed with wire. Serial balloon angioplasties using AB ARMADA 35 ASSISTANT BOILER OPERATOR catheter [id number], [id number], [id number] performed at 14 atmosphere followed by drug-eluting stents. Excellent angiographic result with good flow was achieved in the right superficial femoral artery with good three-vessel runoff. Recommendations 1-Return to inpatient for close monitoring and routine cath care 2-Risk factor modification for secondary prevention 3-Statin and aspirin 81 mg life?-long, if tolerated 4-Continue Plavix 75mg p.o. daily for at least one year. We will assess at the end of one year again to continue if further or not 5-Continue optimal medical management. Consider balloon angioplasty to left mid SFA TTE (August 31) CONCLUSIONS 1. Dilated left ventricle. Severely decreased left ventricular systolic function. Left ventricular ejection fraction is estimated at 25 %. Global left ventricular hypokinesis with severe hypokinesis of septal wall. Grade III diastolic dysfunction (restrictive filling pattern), severely elevated filling pressures. 2. No significant valvular abnormality. 3. Moderate pulmonary hypertension with pulmonary artery pressure estimated at 50 mmHg. 4. When compared to previous echocardiogram dated 04/13/2017, there may not have been any significant change. Lexiscan MPI (09/10/19) IMPRESSIONS 1. Large size predominantly fixed perfusion abnormality of severe severity of mid to apical anterior, entire inferior, mid lateral and apical huston. This is suggestive of old myocardial infarction or scarring in multiple vessels ( left anterior descending, right coronary artery and circumflex artery territory). 2. The left ventricular ejection fraction is markedly reduced with a value of 20%. 3. Severe global hypokinesis more pronounced in mid to apical anterior, inferior and apical huston. 4. No coronary ischemia based on the study. 5. No prior similar studies to compare. YURI (09/10/19) RIGHT LEFT Brachial 112.00 mmHg Brachial 111.00 mmHg Pressure (mmHg) Waveform Pressure (mmHg) Waveform 45.00 ASSISTANT BOILER OPERATOR 48.00 41.00 DPA 44.00 0.40 Ankle/Brachial Index 0.43 Pre-Exercise Toe Pressure 39.00 Pre-Exercise Toe/Brachial Index 0.35 FINDINGS Markedly diminished resting ABIs bilaterally Diminished resting TBI on the left side CONCLUSIONS Features of severe obstructive peripheral artery disease bilaterally. CXR (09/09/19) IMPRESSION: 1. Small bilateral pleural effusions and bibasilar areas of atelectasis. 2. Suspect mild pulmonary congestion. A&P Assessment and plan (1) CHF (congestive heart failure): Appears fairly compensated now. -restarted on lisinopril, low dose metoprolol and transition to PO lasix. -Given his h/o non compliance and sCHF being chronic as well as DNR/DNI status, would not recommend life vest at this point. -He is DNR/DNI so not a candidate for ICD either. Status: Acute Qualifiers: Heart failure type: systolic Heart failure chronicity: acute on chronic Qualified Code(s): I50.23 - Acute on chronic systolic (congestive) heart failure (2) CAD (coronary artery disease): No ischemia on stress test. -continue ASA and statin. Status: Acute Qualifiers: Coronary Disease-Associated Artery/Lesion type: [place] artery [place] vs. transplanted heart: [place] heart Associated angina: without angina Qualified Code(s): I25.10 - Atherosclerotic heart disease of [place] coronary artery without angina pectoris (3) Peripheral arterial disease: He does have markedly diminished YURI bilaterally. -wounds present bilaterally. He does not have any rest pain. -May consider another peripheral angiogram if there is poor healing of the wounds in next few weeks. I will leave that decision on Dr. Valle -f/u in office in 2-[address] Valle/wv. Status: Acute (4) Chronic osteomyelitis of right foot: Status: Acute (5) Diabetes: Status: Acute (6) Non-compliant behavior: Status: Acute Consult Attestations Medical Necessity Statement: As per primary team. Coding Level of Care Code Acute Ammonia Print Operator for Maia Posadasd Diagnoses CHF (congestive heart failure) I50.23 Heart failure type: systolic Heart failure chronicity: acute on chronic CAD (coronary artery disease) I25.10 Coronary Disease-Associated Artery/Lesion type: [place] artery [place] vs. transplanted heart: [place] heart Associated angina: without angina Peripheral arterial disease I73.9 Chronic osteomyelitis of right foot M86.671 Diabetes E11.9 Non-compliant behavior R46.89
--- NOTE | 2019-09-10 11:55 | PC.NURSE ---
NO IV Patients IV Occluded. IV removed and catheter intact. Attempted to restart IV and called [facility] Superintendent tried with no luck. VORB by Dr. Luciano to hold IV for now. May attempt another IV if need for testing. KARTHIK,ROOF PANEL HANGER
--- NOTE | 2019-09-10 13:28 | PC.NURSE ---
DOPPLER PEDAL PULSES PEDAL PULSES PRESENT TO BILATERAL LOWER EXTEREMITIES. LEFT FOOT PEDAL PULSE PRESENT DORAL PEDIS. RIGHT FOOT PEDAL PULSE PRESENT POSTERIOR TIBIAL PEDIS. MARKED AND DR. CASPER AND DR. LOBO NOTIFIED. ALESSANDRAW, MEDICAL DEVICE SALES CONSULTANT
[2019-09-10] MEDS: doxycycline 100 mg Tablet PO (14:01)
--- NOTE | 2019-09-10 22:24 | P.DS_ITS ---
Discharge Providers Date of Admission: 09/08/19 19:37 Date of Discharge: September 10, 2019 Attending Provider at Admission: Jaret Robert MD Attending Provider at Discharge: Rodriguez Luciano Primary Care Provider: GISELA Bearden Diagnoses at Discharge Discharge Diagnosis (1) CHF (congestive heart failure): Status: Acute Qualifiers: Heart failure type: systolic Heart failure chronicity: acute on chronic Qualified Code(s): I50.23 - Acute on chronic systolic (congestive) heart failure (2) CAD (coronary artery disease): Status: Acute Qualifiers: Coronary Disease-Associated Artery/Lesion type: [place] artery [place] vs. transplanted heart: [place] heart Associated angina: without angina Qualified Code(s): I25.10 - Atherosclerotic heart disease of [place] coronary artery without angina pectoris (3) Peripheral arterial disease: Status: Acute (4) Chronic osteomyelitis of right foot: Status: Acute (5) Diabetes: Status: Acute (6) Non-compliant behavior: Status: Acute Reason for Visit Reason for Visit: Reason For Visit: SENT FROM WOUND CARE Hospital Course Hospital Course: Pleasant 79-year-old gentleman with history of coronary disease, peripheral artery disease, CHF nonhealing ulcers on lower extremities was referred for assessment management of dyspnea, CHF exacerbation from wound care clinic where he was noted significantly dyspneic. During hospitalization he on and off required up to 3 L of oxygen by nasal cannula. Was also assessed by podiatry here due to nonhealing ulcers. The wounds were found to be in stable condition, and he has undergone IV antibiotic treatment here and will complete a course of treatment for soft tissue infection with doxycycline per podiatry recommendation, with recommendation to wear Darco shoes which he states he has at home, and follow-up with wound care clinic. Please see consult note for details. There is concern for chronic smoldering osteomyelitis in the right foot, however, at this time with chronic nature of his wounds, as well as tenuous cardiac status, with CHF exacerbation and severe underlying cardiomyopathy with EF of 20%, on reassessment TTE this admission 25%, was found to be too high risk to attempt additional assessment by biopsy or additional surgical intervention at this time. He underwent stress testing for additional evaluation due to history of coronary disease, with finding of hypokinetic segment due to prior [place], most likely, however, without active ischemia noted. He has not been adherent with his medications, and new prescriptions have been given for aspirin, beta-lakisha, statin, ANUJ inhibitor, Lasix, and he was counseled incidentally on importance of adherence to therapy, risks of lack of adherence. He verbalized understanding. He was counseled on importance of follow-up as well. With finding of chronic ischemia of lower extremities with YURI by ultrasonography of 0.4 on the right, 0.43 and left. Findings were discussed with him, and he understands he needs to follow-up with cardiology for assessment regarding possible additional endovascular intervention to allow for healing of his chronic wounds. He will follow-up with cardiology in office in 2 weeks. He was not found to be a good candidate for LifeVest therapy. Please continue to assist him in optimizing control of his chronic conditions, including CAD, peripheral arterial disease, coronary artery disease, severe cardiomyopathy and systolic CHF. With history of smoking, intermittent cough, once he is back to baseline terms of CHF, please also consider referral for assessment by pulmonary function testing to assess for underlying COPD. Physical Exam Const: COMMON NORMALS: no apparent distress and oriented x3 OTHER: Today he states his breathing is much better. HENMT: COMMON NORMALS: oropharynx normal Neck/C-Spine: COMMON NORMALS: no JVD Resp: COMMON NORMALS: normal respiratory effort AUSCULTATION: diminished lung sounds Cardio: COMMON NORMALS: no JVD, regular rhythm, S1 normal heart sound, S2 normal heart sound and no murmurs RHYTHM: regular rhythm HEART SOUNDS: S1 normal and S2 normal GI: COMMON NORMALS: normal to inspection, nondistended, normoactive bowel sounds, soft to palpation and non-tender PALPATION: Yes soft Extremity: COMMON NORMALS: no joint enlargement GENERAL: Yes edema (trace) Neuro: COMMON NORMALS: oriented x3 and moves all extremities Skin: COMMON NORMALS: no rashes or lesions noted GENERAL SKIN EXAM: no rashes or lesions noted Discharge Data Data Completed and Pending: Completed Studies During Hospitalization Category Date Time Status Sestamibi Stress Test Request Ericka ne Exams 09/10/19 08:00 Completed XR ankle LT min 3 V* [id number] Stat Exams 09/08/19 17:25 Completed XR chest 1V rain ble [id number] Stat Exams 09/08/19 17:25 Completed XR foot LT min 3V * [id number] Stat Exams 09/08/19 17:25 Completed XR foot RT min 3V * [id number] Stat Exams 09/08/19 17:25 Completed NM rita perf SPECT r/s* [id number] Routin e Nuc Med 09/10/19 07:00 Completed CV ankle brachial index [id number] Routi ne Ultrasound 09/09/19 07:43 Completed CV echo complete* [id number] Routine Ultrasound 09/09/19 12:24 [place] [id number] Stat Ultrasound 09/08/19 17:25 Completed Pending at discharge Category Date Time Status Blood Culture Sta t Lab 09/08/19 17:48 Results Labs from last 24 hours 09/10/19 09/10/19 09/10/19 10:38 06:31 06:15 Sodium 136 Potassium 3.7 Chloride 99 Carbon Dioxide 19 L Anion Gap 21.7 H BUN 21 Creatinine 1.3 H Glucose 88 POC Glucose 104 82 Calculated Osmolal ity 278 L Calcium 9.4 Vancomycin Trough 18.9 H Vitals: Last Vital Signs Temp 98.7 F 09/10/19 16:15 Pulse 86 09/10/19 16:15 Resp 18 09/10/19 16:15 BP 128/78 09/10/19 16:15 Pulse Ox 97 09/10/19 16:15 Discharge Plan Discharge Patient Disposition: Home Health Service Condition: Stable Prescriptions: New atorvastatin 40 mg Tablet 40 mg PO DAILY Qty: 30 RF: 0 aspirin 81 mg Tablet,Delayed Release (Dr/Ec) 81 mg PO DAILY Qty: 30 RF: 0 lisinopril 5 mg Tablet 5 mg PO DAILY Qty: 30 RF: 0 metoprolol succinate 25 mg Tablet Extended Release 24 Hr 12.5 mg PO DAILY Qty: 15 RF: 0 furosemide 40 mg tablet See Rx Instructions .ROUTE .COMPLEX Qty: 30 RF: 0 doxycycline hyclate 100 mg tablet 100 mg PO BID 14 Days Qty: 28 RF: 0 Discharge Orders: Discharge Order (Routine); Ordered 09/10/19 Ordered By: Rodriguez Luciano Referrals: [facility] ([facility]) [Outside] Precious Coelho DO [Referring] - 09/16/19 1:00 pm (cardiomyopathy, CHF, CAD, PVD, chronic limb ischemia, chronic wounds, poss chronic osteomyelitis) Andie Portillo MD [Physician] - 09/24/19 1:30 pm WOUND CARE CLINIC, [Staff Physician] - 09/15/19 10:00 am Discharge Diet: Cardiac and Diabetic Discharge Activity: Resume usual activity, Increase activity as tolerated and Limit activity as instructed Patient Instructions: Metoprolol (By mouth), Lisinopril (By mouth), Furosemide (By mouth), Doxycycline (By mouth), Aspirin (By mouth), Atorvastatin (By mouth), Heart Failure (DC), Osteomyelitis (DC), CHF Stoplight Activity Restrictions/Additional Instructions: Fall precautions. Please protect feet, do not walk barefoot. Please wear the orthopedic shoe as per dr Diaz. Continue wound care with dressing changes with santyl. Please make sure to follow up with wound care and with cardiology regarding chronic limb ischemia. Please make sure to take medications, as you are risking worsening of heart failure which may be life-threatening, as well as risking of worsening of lower extremity ischemia, risking loss of limb or other complications. Please continue to abstain from smoking. Discharge Date/Time: 09/10/19 15:44 Discharge Attestations Time Spent in Discharge Care*: greater than 30 min Quality Metrics Clinical Quality Measures During this hospital stay, did patient experience: None Coding Level of Care Code Acute Director Cpg for Maia Alexander Diagnoses CHF (congestive heart failure) I50.23 Heart failure type: systolic Heart failure chronicity: acute on chronic CAD (coronary artery disease) I25.10 Coronary Disease-Associated Artery/Lesion type: [place] artery [place] vs. transplanted heart: [place] heart Associated angina: without angina Peripheral arterial disease I73.9 Chronic osteomyelitis of right foot M86.671 Diabetes E11.9 Non-compliant behavior R46.89
== END 2019-09-10 15:44 | disposition home health service (06) | DRG 264 ==
LOC: ER 17:59 → MEDSURG 20:27
PROVIDERS: Podiatrist Foot & Ankle Surgery; Admitting Provider Internal Medicine; Emergency Provider Family Medicine; Family Provider Registered Nurse; PCP Registered Nurse; Visit Provider Internal Medicine
DX: I13.0 Hypertensive heart and chronic kidney disease with heart failure and stage 1 through stage 4 chronic kidney disease, or unspecified chronic kidney disease (principal); I50.23 Acute on chronic systolic (congestive) heart failure; M86.671 Other chronic osteomyelitis, right ankle and foot; L97.322 Non-pressure chronic ulcer of left ankle with fat layer exposed; L97.312 Non-pressure chronic ulcer of right ankle with fat layer exposed; N18.3 Chronic kidney disease, stage 3 (moderate); E11.22 Type 2 diabetes mellitus with diabetic chronic kidney disease; E11.69 Type 2 diabetes mellitus with other specified complication; E11.51 Type 2 diabetes mellitus with diabetic peripheral angiopathy without gangrene; E11.42 Type 2 diabetes mellitus with diabetic polyneuropathy; Z95.820 Peripheral vascular angioplasty status with implants and grafts; Z91.19 Patient's noncompliance with other medical treatment and regimen; Z87.891 Personal history of nicotine dependence; I44.0 Atrioventricular block, first degree; I25.10 Atherosclerotic heart disease of native coronary artery without angina pectoris; Z89.421 Acquired absence of other right toe(s); Z89.411 Acquired absence of right great toe; Z95.1 Presence of aortocoronary bypass graft; I87.8 Other specified disorders of veins; Z66 Do not resuscitate; Z72.89 Other problems related to lifestyle; I42.9 Cardiomyopathy, unspecified; I25.2 Old myocardial infarction
CPT/HCPCS: 11042; 12345; 36415; 36416; 71045; 73610; 73630; 78452; 80048; 80053; 80202; 82962; 85025; 85651; 86140; 87040; 93005; 93017; 93306; 93922; 93971; 94640; 96372; 96375; 99282; A9500; J1650; J1815; J1940; J2543; J2785; J3370; J7050

== ENCOUNTER 2019-09-15 10:06 | Outpatient (CLI) | payer MEDICARE, SELFPAY | END 2019-09-15 10:07 | disposition home or self-care (01) | LOC: WOUND 13:35 | PROVIDERS: Family Provider Registered Nurse; PCP Registered Nurse; Visit Provider Emergency Medicine | DX: E11.621 Type 2 diabetes mellitus with foot ulcer (principal); L97.522 Non-pressure chronic ulcer of other part of left foot with fat layer exposed; S90.511A Abrasion, right ankle, initial encounter; X58.XXXA Exposure to other specified factors, initial encounter | CPT/HCPCS: 11042 ==

== ENCOUNTER 2019-09-22 14:21 | Outpatient (CLI) | payer MEDICARE, SELFPAY | END 2019-09-22 14:22 | disposition home or self-care (01) | LOC: WOUND 14:23 | PROVIDERS: Family Provider Registered Nurse; PCP Registered Nurse; Visit Provider Nurse Practitioner Family | DX: E11.621 Type 2 diabetes mellitus with foot ulcer (principal); L97.522 Non-pressure chronic ulcer of other part of left foot with fat layer exposed; S90.511A Abrasion, right ankle, initial encounter; X58.XXXA Exposure to other specified factors, initial encounter | CPT/HCPCS: 11042 ==

== ENCOUNTER 2019-09-26 12:48 | Outpatient (CLI) | payer MEDICARE, SELFPAY ==
--- NOTE | 2019-09-26 13:29 | MR_ITS ---
WS: [id number] INDICATION: Osteomyelitis TECHNIQUE: MR of the right foot without gadolinium enhancement. IV access unable to be obtained. Stephie ent refused additional attempts at IV access. Axial T1, T2, and proton-density. Axial STIR sagittal S TIR sagittal T1 coronal proton density and coronal T2 imaging FINDINGS: Osteopenia. Prior postoperative changes amputation at the base of the metatarsals. Diffuse soft tissue edema in the soft tissue stump. Plantar and Achilles calcaneal spurring. 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 Degenerative erosive changes involving the navicular and tarsal bones. Chronic well-corticated avulsion tip of the medial malleolus. Small amount of degenerative ed jil involving the cuboid. Diffuse soft tissue edema involving the hindfoot and soft tissue stump consistent with cellulitis. N o evidence of drainable abscess or fluid collection. Chronic appearing skin thickening. Area of ulcer ation is indicated with a vitamin E marker on the plantar surface of the foot. In the area of ulcerat ion, no evidence of underlying osteomyelitis. No drainable abscess or fluid collection in this area. Underlying soft tissue edema consistent with cellulitis. Normal fatty bone marrow signal in the calca neus, talus, tarsal bones and residual metatarsal stumps. No evidence of osteomyelitis. MR/MR foot RT wo con* [id number] IMPRESSION: 1. No evidence of osteomyelitis. 2. Area of ulceration on the plantar surface of the foot indicated by vitamin E marker. No evidence of underlying abscess or fluid collection. No osteomyelit is in this area. 3. Prior extensive postoperative changes amputation involving the base of the metatarsals. 4. Extensive soft tissue edema hindfoot midfoot and residual forefoot consiste nt with cellulitis. Chronic skin thickening. No drainable abscess or fluid amy ection.
== END 2019-09-26 12:49 | disposition home or self-care (01) ==
LOC: RADWPI 12:52
PROVIDERS: Family Provider Registered Nurse; PCP Registered Nurse; Visit Provider Emergency Medicine
DX: L98.499 Non-pressure chronic ulcer of skin of other sites with unspecified severity; Z89.421 Acquired absence of other right toe(s); R60.9 Edema, unspecified
CPT/HCPCS: 73718

== ENCOUNTER 2019-10-08 14:58 | Outpatient (CLI) | payer MEDICARE, SELFPAY | END 2019-10-08 14:59 | disposition home or self-care (01) | LOC: WOUND 14:59 | PROVIDERS: Family Provider Registered Nurse; PCP Registered Nurse; Visit Provider Nurse Practitioner Family | DX: E11.621 Type 2 diabetes mellitus with foot ulcer (principal); L97.522 Non-pressure chronic ulcer of other part of left foot with fat layer exposed; S90.511A Abrasion, right ankle, initial encounter; X58.XXXA Exposure to other specified factors, initial encounter | CPT/HCPCS: 11042 ==

== ENCOUNTER 2019-10-30 14:30 | Outpatient (CLI) | payer MEDICARE, SELFPAY | END 2019-10-30 14:31 | disposition home or self-care (01) | LOC: WOUND 14:36 | PROVIDERS: Family Provider Registered Nurse; PCP Registered Nurse; Visit Provider Nurse Practitioner Family | DX: E11.621 Type 2 diabetes mellitus with foot ulcer (principal); L97.522 Non-pressure chronic ulcer of other part of left foot with fat layer exposed | CPT/HCPCS: 99212 ==

== ENCOUNTER 2019-11-27 15:35 | Outpatient (CLI) | payer MEDICARE, SELFPAY | END 2019-11-27 15:36 | disposition home or self-care (01) | LOC: WOUND 15:36 | PROVIDERS: Family Provider Registered Nurse; PCP Registered Nurse; Visit Provider Emergency Medicine | DX: E11.621 Type 2 diabetes mellitus with foot ulcer (principal); L97.522 Non-pressure chronic ulcer of other part of left foot with fat layer exposed | CPT/HCPCS: 11042 ==

== ENCOUNTER → 2019-12-04 10:59 | Outpatient (BNVA) | payer MEDICARE, SELFPAY | PROVIDERS: Family Provider Registered Nurse; PCP Registered Nurse; Referring Provider Dermatology; Visit Provider Dermatology | DX: D48.9 Neoplasm of uncertain behavior, unspecified (principal); L82.1 Other seborrheic keratosis; D18.01 Hemangioma of skin and subcutaneous tissue; L57.0 Actinic keratosis; L82.0 Inflamed seborrheic keratosis | CPT/HCPCS: 11102; 11103; 17000; 17003; 88304; 88305; 88342; 99203 ==

== ENCOUNTER 2019-12-25 14:05 | Outpatient (CLI) | payer MEDICARE, SELFPAY | END 2019-12-25 14:06 | disposition home or self-care (01) | LOC: WOUND 14:06 | PROVIDERS: Family Provider Registered Nurse; PCP Registered Nurse; Visit Provider Nurse Practitioner Family | DX: E11.621 Type 2 diabetes mellitus with foot ulcer (principal); L97.529 Non-pressure chronic ulcer of other part of left foot with unspecified severity | CPT/HCPCS: 99212 ==

== ENCOUNTER → 2020-02-04 13:43 | Outpatient (BNVA) | payer MEDICARE, SELFPAY | PROVIDERS: Family Provider Registered Nurse; PCP Registered Nurse; Visit Provider Dermatology | DX: L21.9 Seborrheic dermatitis, unspecified (principal); L82.0 Inflamed seborrheic keratosis | CPT/HCPCS: 17110; 99213 ==

== ENCOUNTER 2020-09-03 11:54 | Outpatient (CLI) | payer MEDICARE, SELFPAY ==
--- NOTE | 2020-09-03 12:15 | XR_ITS ---
NOTE: Report was unsigned for reason: Ordering provider was edited. Original Signature date and time was: 09/03/2020 1257 WS: [id number] Right foot, 3 views, 09/03/2020 Clinical Data: NON HEALING ULCER/R FOOT SWELLING/DIABETES/HX:OSTEOMYELITIS Comparison: Right foot, 09/08/2019. Findings: The patient has had amputation of the forefoot with only the bases of the first through fifth metatarsals of the right foot remaining. There are soft tissue deformities which may represent ulcerations especially on the lateral aspect of the foot. Osteoporosis is present throughout the foot. There is subcutaneous air on the lateral and plantar surface of the foot which may represent inflammatory areas. No definite osteomyelitis is seen. There are no fractures or dislocations. The small vessels have calcifications in the wall. There is a plantar spur and an Achilles spur. [facility] XR/XR foot RT min 3V* [id number] Impression: 1. Forefoot amputation unchanged. 2. Soft tissue air which may represent cellulitis. 3. Osteoporosis of the remainder of the bones of the foot.
== END 2020-09-03 11:55 | disposition home or self-care (01) ==
PROVIDERS: PCP Registered Nurse; Visit Provider Nurse Practitioner Family
DX: E11.621 Type 2 diabetes mellitus with foot ulcer (principal); M86.8X7 Other osteomyelitis, ankle and foot; M79.89 Other specified soft tissue disorders; Z89.431 Acquired absence of right foot; M81.8 Other osteoporosis without current pathological fracture
CPT/HCPCS: 73630

== ENCOUNTER 2020-09-15 14:20 | Inpatient (IN) | payer MEDICARE, SELFPAY ==
[2020-09-15] VITALS (10 sets, daily range): BP systolic 112–158; BP diastolic 56–101; PULSE 86–99; RESP 18–29; TEMP 36.1–37.1; O2SAT 94–99
--- NOTE | 2020-09-15 14:32 | CT_ITS ---
WS: [id number] CT scan of the head, 09/15/2020 Clinical Data: AMS Comparison: CT head, 05/05/2017. DLP: 892.[address] scans at [facility] use at least one of these dose optimization techniques: automat ed exposure control; mA and/or kV adjustment per patient size (includes targeted exams where dose is matched to clinical indication); or iterative reconstruction. Findings: The ventricular system is moderately dilated without shift. No recent infarct or hemorrhage is seen. There are no abnormal intracerebral masses. The cerebellum and brainstem are not remarkable. Bony windows of the skull and skull base show no fractures or erosions. The mastoid air cells, chemist intern al auditory canals, sella turcica, intraorbital contents, and paranasal sinuses are unremarkable. CT/CT head wo con* [id number] Impression: Moderate cerebral atrophy.
--- NOTE | 2020-09-15 14:32 | XR_ITS ---
WS: [id number] Portable AP upright chest, 09/15/2020 Clinical Data: confusion/weakness Comparison: Portable chest, 09/08/2019. Findings: The bilateral pleural effusions have diminished greatly. The bibasilar atelectasis and/or p neumonia has almost totally cleared. The upper lobes are normal. No nodules or masses are seen. The h eart is normal. There is no pneumothorax. There is a dextroscoliosis. The aortic arch shows mild calc ification. Monitor leads are on the chest wall. The pulmonary vascularity is not increased. No pneumo easton is seen. XR/XR chest 1V portable [id number] Impression: 1. Significant clearing of bibasilar atelectasis and/or pneumonia and bilateral effusions. 2. Atherosclerosis.
--- NOTE | 2020-09-15 15:37 | PC.NURSE ---
portable xray at bedside
--- NOTE | 2020-09-15 15:55 | XRR_ITS ---
PROCEDURE INFORMATION: Exam: XR Right Foot Exam date and time: 09/15/2020 4:13 PM Age: 80 years old Clinical indication: Injury or trauma; Other: Wound; Foot; Right; Foreign body involvement not specified; Prior surgery; Additional info: Wound. Osteo? TECHNIQUE: Imaging protocol: XR Right foot. Views: 1 or 2 views. COMPARISON: CR XR foot RT min 3V* [id number] 09/03/2020 12:29 PM FINDINGS: Bones/joints: There has been amputation through the right foot metatarsals. There is osteopenia. No acute fracture. No radiographic evidence for osteomyelitis. Soft tissues: There is soft tissue swelling at the amputation site. There is gas in the soft tissues adjacent to the cuboid and proximal metatarsals. XR/XR foot RT 2V [id number] IMPRESSION: No definite radiographic evidence for osteomyelitis.If there is desire for further evaluation, a MRI could be performed.
--- NOTE | 2020-09-15 15:56 | ECG_ITS ---
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 Measurements Intervals [place] Rate: 97 P: 70 SC: 202 QRS: 259 QRSD: 148 T: 35 QT: 373 QTc: 476 Interpretive Statements SINUS RHYTHM WITH OCCASIONAL VENTRICULAR PREMATURE COMPLEXES POSSIBLE LEFT ATRIAL ENLARGEMENT [-0.1mV P WAVE IN V1/V2] MARKED RIGHT AXIS DEVIATION [QRS AXIS > 100] RIGHT BUNDLE BRANCH BLOCK [120+ ms QRS DURATION, UPRIGHT V1, 40+ ms S IN I/aVL/V4/V5/V6] SEPTAL MYOCARDIAL INFARCTION [40+ ms Q WAVE IN V1/V2], PROBABLY OLD Compared to ECG 09/08/2019 17:47:50 Ventricular premature complex(es) now present Sinus tachycardia no longer present First degree AV block no longer present Myocardial infarct finding still present Electronically Signed On 09-16-2020 9:32:22 CDT by Aguilar Bolden M.D. [id number]
--- NOTE | 2020-09-15 16:10 | PC.PHAR ---
PTS DAUGHTER STATES SHE HELPS THE PT TAKE CARE OF HIS MEDICATIONS-PTS DAUGHTER BROUGHT IN MEDICATION BOTTLES BUT STATES SHE FORGOT TO BRING IN THE [facility] STATES LAST FILLED ON 01/30/20 44D/S-SEE ALL PHARMACY COMMENTS ON EACH RX HAS THE DATES OF THE BOTTLES THE PT BROUGHT IN MOST ARE DATES
[2020-09-15 16:11] LABS: Basophils % 0.2 %; Hematocrit 46.6 % (42.0-52.0); Hemoglobin 15.4 g/dL (11.7-16.6); Lymphocytes # 0.7 10^3/uL (0.8-4.8); Mean Corpuscular Hemoglobin 32.4 pg (28.0-34.0); Mean Corpuscular Volume 97.9 fL (80-94); Mean Platelet Volume 11.2 fL (7.4-10.4); Monocytes % 8.1 %; Neutrophils # 10.26 10^3/uL (1.8-7.7); Neutrophils % 85.3 %; Nucleated Red Blood Cells % 0 %; Platelet Count 195 10^3/cmm (130-400); Red Blood Count 4.76 10^6/uL (4.1-5.3)
[2020-09-15 16:37] LABS: Lactic Sepsis W/Reflex 2.3 mmol/L (0.5-2.2)
[2020-09-15 16:39] LABS: Troponin(5th) Baseline 96 ng/L (0-15)
[2020-09-15 16:48] LABS: Alanine Aminotransferase 25 U/L (0-41); Albumin Level 3.4 g/dL (3.5-5.2); Alkaline Phosphatase 83 IU/L (40-130); Aspartate Amino Transferase 35 U/L (0-40); Blood Urea Nitrogen 27 mg/dL (8-23); Calcium 8.7 mg/dL (8.5-10.5); Carbon Dioxide 24 mmol/L (22-29); Chloride 91 mmol/L (98-107); Globulin 3.8 g/dL (1.3-4.6); Glucose 248 mg/dL (65-115); NT Pro B Type Natriuretic Pept 5225 pg/mL (0-450); Osmolality Calculated 273 mOsm/kg (285-295); Sodium 125 mmol/L (136-145); Total Bilirubin 0.8 mg/dL (0.15-1.2); Total Protein 7.2 g/dL (6.6-8.7)
[2020-09-15 16:50] LABS: Anion Gap 14.3 (5-19); Potassium 4.3 mmol/L (3.5-5.1)
[2020-09-15] MEDS: vancomycin 1,000 MG in sodium chloride 0.9% 250 ML 250 MG IV (16:53)
[2020-09-15 17:56] LABS: Reflex Lactate Order REFLEX LACTIC ORDERD
--- NOTE | 2020-09-15 17:56 | ECG_ITS ---
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 Measurements Intervals [place] Rate: 87 P: 58 [place]: 207 QRS: -42 QRSD: 115 T: 122 QT: 360 QTc: 434 Interpretive Statements SINUS RHYTHM WITH FREQUENT VENTRICULAR PREMATURE COMPLEXES IN A BIGEMINAL PATTERN POSSIBLE LEFT ATRIAL ENLARGEMENT [-0.1mV P WAVE IN V1/V2] LEFT AXIS DEVIATION [QRS AXIS < -30] LEFT VENTRICULAR HYPERTROPHY AND ST-T CHANGE [VOLTAGE CRITERIA PLUS ST/T ABNORMALITY] POSSIBLE SEPTAL MYOCARDIAL INFARCTION , OF INDETERMINATE AGE [30 ms Q WAVE IN V1/V2] Compared to ECG 09/15/2020 16:09:15 Left-axis deviation now present Left ventricular hypertrophy now present ST (T wave) deviation now present Right-axis deviation no longer present Right bundle-branch block no longer present Myocardial infarct finding still present Electronically Signed On 09-16-2020 9:38:48 CDT by Aguilar Bolden M.D. [id number]
--- NOTE | 2020-09-15 18:24 | CTR_ITS ---
PROCEDURE INFORMATION: Exam: CTA Chest With Contrast Exam date and time: 09/15/2020 6:27 PM Age: 80 years old Clinical indication: Shortness of breath; Additional info: Dyspnea TECHNIQUE: Imaging protocol: Computed tomographic angiography of the chest with contrast. 3D rendering (Not supervised by radiologist): MIP and/or 3D reconstructed images were created by the technologist. Radiation optimization: All CT scans at this facility use at least one of these dose optimization techniques: automated exposure control; mA and/or kV adjustment per patient size (includes targeted exams where dose is matched to clinical indication); or iterative reconstruction. Contrast material: OMNI 350; Contrast volume: 86 ml; Contrast route: INTRAVENOUS (IV); COMPARISON: CR XR chest 1V portable [id number] 09/15/2020 3:29 PM RADIATION DOSE METRICS: Total DLP (mGy-cm): 608.48 FINDINGS: Pulmonary arteries: Normal. No pulmonary emboli. Aorta: Unremarkable. No aortic aneurysm. No aortic dissection. Lungs: There is patchy bilateral lower lobe lung consolidation. No dominant lung mass. Pleural spaces: Unremarkable. No pneumothorax. No pleural effusion. Heart: Unremarkable. No cardiomegaly. No pericardial effusion. Lymph nodes: Unremarkable. No enlarged lymph nodes. Bones/joints: Degenerative change is identified in the spine. There is no evidence for acute fracture or malalignment. Soft tissues: Unremarkable. CT/CT angio chest PE protcl [id number] IMPRESSION: There is no evidence for a pulmonary embolus. There is patchy bilateral lower lobe lung consolidation consistent with atelectasis and/or pneumonia. Radiation Dose CTDIVOL = (mGy): DLP = 608.48 (mGy-cm)
[2020-09-15] MEDS: iohexol 350 mg/mL 100 mL Btl IV (18:41)
[2020-09-15] MEDS: FUROsemide 10 mg/mL SDV 4mL 40 MG IVP (19:32)
--- NOTE | 2020-09-15 19:37 | PC.NURSE ---
Pt resting in bed, requests more time for UA production rather than cath at this time. Family bedside. Asked pt if he could tell me the year, Pt replies why you ask so many damn questions, leave me alone. Pt repositioned in bed, therapeutic communication used to provide comfort. Will continue to monitor, family bedside.
[2020-09-15] MEDS: cephALEXin 500 mg Capsule PO (20:29)
[2020-09-15 20:38] LABS: Troponin 5 2HR 107.5 ng/L (0-15); Troponin 5 2HR Delta 11.5 ABS# (0-10)
[2020-09-15 20:55] LABS: Add Urine Microscopic? YES; Amorphous Sediment Urine 1+ /hpf; Bacteria Urine TRACE /hpf; Bilirubin Urine Neg (Negative); Blood Urine 2+ (Negative); Glucose Urine UA 2+ (Normal); Ketones Urine Negative (Negative); Leukocyte Esterase Urine Negative (Negative); Nitrate Urine Negative (Negative); Protein Urine Trace (Negative); RBC Urine 0-4 /hpf (0-2); Specific Gravity, Urine 1.015 (1.005-1.030); Squamous Epithelial Cell Urine 0-4 /hpf (0-5); Transitional Epi Cells Urine 0-4 /hpf; Urine Appearance Clear (CLEAR); Urine Color Yellow (Yellow); Urobilinogen Urine 1 mg/dL (Negative); pH Urine 5 (5-7)
[2020-09-15] MEDS: piperacillin-tazobactam 3.375 GM in sodium chloride 0.9% (plus) 50 ML IV (21:37)
--- NOTE | 2020-09-15 21:56 | ECG_ITS ---
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 Measurements Intervals [place] Rate: 83 P: 66 [place]: 196 QRS: 260 QRSD: 152 T: 49 QT: 422 QTc: 496 Interpretive Statements SINUS RHYTHM RIGHT AXIS DEVIATION [QRS AXIS > 100] RIGHT BUNDLE BRANCH BLOCK [120+ ms QRS DURATION, UPRIGHT V1, 40+ ms S IN I/aVL/V4/V5/V6] SEPTAL MYOCARDIAL INFARCTION , OF INDETERMINATE AGE [40+ ms Q WAVE IN V1/V2] Compared to ECG 09/15/2020 18:26:21 Right-axis deviation now present Right bundle-branch block now present Ventricular premature complex(es) no longer present Left-axis deviation no longer present Left ventricular hypertrophy no longer present ST (T wave) deviation no longer present Myocardial infarct finding still present Electronically Signed On 09-16-2020 9:34:44 CDT by Aguilar Bolden M.D. [email or web address]/[id number]
[2020-09-15 22:01] LABS: Lactate (Lactic Acid level) 1.5 mmol/L (0.5-2.2)
[2020-09-15 22:05] LABS: Troponin 5 6HR 120.4 ng/L (0-15); Troponin 5 6HR Delta 24.4 ng/L (0-12)
--- NOTE | 2020-09-15 22:05 | ED_ITS ---
HPI - General Adult General: Chief complaint: General Medical Stated complaint: CONFUSION, WEAKNESS, INCONTINENCE, PAIN Time Seen by Provider: 09/15/20 15:33 History of Present Illness: HPI narrative: The patient is a 80-year-old male with past medical history congestive heart failure, diabetes, right foot ulcer undergoing wound care. He comes to the ER today complaining of confusion and weakness. He says it is difficult to explain his symptoms but says he feels confused and weak. Also complains of increased urinary frequency. Associated symptoms: Reports confusion; Deny chest pain, dyspnea, headache(s), rash or palpitations Review of Systems General: Reports: 10 or more systems reviewed and unremarkable except in HPI and below Const: Reports: fatigue; Denies: fever(s) Eyes: Denies: change in vision, blurry vision or eye redness ENMT: Denies: throat pain, swelling of lips/tongue, ear or mastoid pain or nasal congestion Card: Denies: chest pain, palpitations, irregular heart rhythm, edema, dyspnea on exertion or orthopnea Resp: Denies: dyspnea, productive cough or non-productive cough GI: Denies: abdominal pain, diarrhea or GI cramping : Denies: flank pain, urinary frequency or urinary urgency Musc: Denies: neck pain, back pain, extremity pain, joint pain, joint redness, limited range of motion or muscle weakness Skin/Breast: Denies: rash, pruritus, erythema, skin pain or skin tenderness Neuro: Reports: confusion; Denies: headache(s), numbness in extremities, weakness in extremities, sensory changes, difficulty walking, dizziness or Slurred speech present Psych: Denies: anxiety or depression Endo: Denies: polyuria All/Imm: Denies: urticaria, throat swelling or tongue swelling PFS ED PFSH: Medical History (Updated 09/15/20 @ 22:19 by Mario Alberto Dubois MD) CAD (coronary artery disease) Diabetes Diabetic foot ulcer Heart failure with reduced ejection fraction Severely reduced ejection fraction 20% Hypertension PAD (peripheral artery disease) Syncope Due to hypoglycemia Surgical History 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) S/P peripheral artery angioplasty with stent placement Family History Denies family history of Hyperlipidemia Lung disease Hypertension Social History Smoking and tobacco status: former smoker Alcohol intake: current Alcohol intake frequency: 3 or more drinks per day Alcohol type: beer Housing: Other Details: Lives alone Physical Exam Const: COMMON NORMALS: no acute distress, average body habitus, patient oriented x3, no limitations, healthy appearing, alert and well nourished GENERAL APPEARANCE: cooperative, comfortable, well kempt and well developed ORIENTATION/CONSCIOUSNESS: Yes awake, Yes oriented to person, Yes oriented to place and Yes oriented to time HENMT: COMMON NORMALS: normocephalic, external ears normal and Normal external nose present HEAD & SCALP: normal to inspection and normocephalic NOSE: Normal external nose present EXTERNAL EAR: Yes external ears normal MOUTH: Normal oral and palatal mucosa present THROAT: posterior oropharynx normal Eye: COMMON NORMALS: Equal, round and reactive pupils present and EOMs intact bilaterally GENERAL EYE: appearance normal, both eyes and all related structures PUPIL: Yes Equal, round and reactive pupils present Neck/C-Spine: COMMON NORMALS: full ROM, no lymphadenopathy, no meningeal signs and no JVD GENERAL: Yes normal visual inspection Lymph: LYMPHATIC: no lymphadenopathy noted Chest: COMMONS NORMALS: normal inspection of the chest and normal palpation of entire chest wall Resp: COMMON NORMALS: normal respiratory effort, No retractions, No use of accessory muscles, clear to auscultation bilaterally and percussion normal EFFORT & INSPECTION: Yes able to speak in complete sentences AUSCULTATION: clear to auscultation bilaterally PERCUSSION: percussion normal Cardio: COMMON NORMALS: no JVD, regular rate, regular rhythm, S1 normal heart sound present, S2 normal heart sound present and Peripheral pulses 2+ throughout RATE: regular rate RHYTHM: regular rhythm HEART SOUNDS: S1 normal heart sound present and S2 normal heart sound present PERIPHERAL PULSES: Peripheral pulses 2+ throughout GI: COMMON NORMALS: Normal to inspection, nondistended, normoactive bowel sounds present, Soft to palpation, non-tender and no masses INSPECTION: Yes normal to inspection PALPATION: Yes Soft to palpation : COMMON NORMALS: Yes no CVA tenderness BLADDER/KIDNEY EXAM: Yes no CVA tenderness Back/Pelvis: COMMON NORMALS: no CVA tenderness, thoracic and lumbar spine normal to inspection, no thoracic nor lumbar tenderness and thoraco-lumbar ROM normal Extremity: COMMON NORMALS: normal to inspection, full ROM, capillary refill normal, no joint enlargement and no pedal edema NARRATIVE EXTREMITY EXAM: Left leg normal. 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 On the plantar aspect there is a 1.5 cm wound which she is receiving wound care. Family says it is getting smaller. From his ankle to mid calf there is a slight increase in erythema possibly representing a cellulitis. GENERAL: Yes normal exam except as noted Neuro: COMMON NORMALS: patient oriented x3, CN's II-XII intact bilaterally, moves all extremities, no focal motor deficits, no sensory deficits noted and gait normal SENSORIUM/ORIENTATION: Yes alert, Yes oriented to person, Yes oriented to place and Yes oriented to time MENINGEAL SIGNS: Yes no meningeal signs Psych: COMMON NORMALS: mental status grossly normal, Normal thought process present, cooperative, normal affect and speech normal APPEARANCE: Yes well kempt ATTITUDE: Yes calm SPEECH: Yes normal speech THOUGHT PROCESS: Normal thought process present Skin: COMMON NORMALS: no rashes or lesions noted GENERAL SKIN EXAM: no rashes or lesions noted Course Vital Signs: Vital signs: Vital Signs Temperature 98.7 F 09/15/20 20:31 Pulse Rate 89 09/15/20 20:31 Respiratory Rate 20 H 09/15/20 20:31 Blood Pressure 130/71 09/15/20 20:31 Pulse Oximetry 96 09/15/20 20:31 MDM - General Adult [facility] Narrative: Medical decision making narrative: The patient came in [facility] of confusion, fatigue. Denies chest pain still. EKG shows no ST segment or T wave changes. Troponin is however elevated initially at 96. The 2-hour increased to 107.5. His BNP is 5225. Likely a CHF exacerbation causing heart strain and troponin leak. Discussed with Dr. Robert who accepts for observation. Also he has a right foot wound and likely cellulitis to his right lower extremity. White count 12. Mild increase in lactic acid on arrival as well. He was started on vancomycin and Zosyn to treat this empirically. The wound on the bottom of his right plantar foot looks clean and x-ray shows no evidence of osteomyelitis. Lab Data: Labs: Lab Results 09/15/20 09/15/20 09/15/20 Range/Units 16:00 16:00 16:00 WBC 12.0 H (4.0-10.0) 10^3/ uL RBC 4.76 (4.1-5.3) 10^6/u L Hgb 15.4 (11.7-16.6) g/dL Hct 46.6 (42.0-52.0) % MCV 97.9 H (80-94) fL MCH 32.4 (28.0-34.0) pg MCHC 33.0 (30.0-36.0) g/dL RDW 13.0 (12.1-15.1) % Plt Count 195 (130-400) 10^3/c mm MPV 11.2 H (7.4-10.4) fL Neut % (Auto) 85.3 % Lymph % (Auto) 6.0 % [place]ward % (Auto) 8.1 % Eos % (Auto) 0.0 % Baso % (Auto) 0.2 % Neut # (Auto) 10.26 H (1.8-7.7) 10^3/u L Lymph # (Auto) 0.7 L (0.8-4.8) 10^3/u L [place]ward # (Auto) 1.0 H (0.2-0.9) 10^3/u L Eos # (Auto) 0.0 (0.0-0.8) 10^3/u L Baso # (Auto) 0.0 (0.0-0.1) 10^3/u L Nucleated RBC % (a uto) 0 % Nucleated RBCs # 0.0 /100WBC Sodium 125 L (136-145) mmol/L Potassium 4.3 (3.5-5.1) mmol/L Chloride 91 L (98-107) mmol/L Carbon Dioxide 24 (22-29) mmol/L Anion Gap 14.3 (5-19) BUN 27 H (8-23) mg/dL Creatinine 1.0 (0.7-1.2) mg/dL GFR Calculation Not Reportable Glucose 248 H (65-115) mg/dL Calculated Osmolal ity 273 L (285-295) mOsm/k g Lactic Acid 2.3 H (0.5-2.2) mmol/L Lactic Acid (Sepsi s) (0.5-2.2) mmol/L Calcium 8.7 (8.5-10.5) mg/dL Total Bilirubin 0.8 (0.15-1.2) mg/dL AST 35 (0-40) U/L ALT 25 (0-41) U/L Alkaline Phosphata se 83 (40-130) IU/L Troponin T Baselin e (0-15) ng/L Troponin T 120 Min [place] (0-15) ng/L Delta Troponin T (0-10) ABS# NT-Pro-B Natriuret Pep 5225 H (0-450) pg/mL Total Protein 7.2 (6.6-8.7) g/dL Albumin 3.4 L (3.5-5.2) g/dL Globulin 3.8 (1.3-4.6) g/dL Urine Color (Yellow) Urine Appearance (CLEAR) Urine pH (5-7) Ur Specific Gravit y (1.005-1.030) Urine Protein (Negative) Urine Glucose (UA) (Normal) Urine Ketones (Negative) Urine Blood (Negative) Urine Nitrate (Negative) Urine Bilirubin (Negative) Urine Urobilinogen (Negative) mg/dL Ur Leukocyte Alethea ase (Negative) Urine RBC (0-2) /hpf Urine WBC (0-5) /hpf Ur Squamous Epith Cells (0-5) /hpf Ur Transition Epit h Cell /hpf Amorphous Sediment /hpf Urine Bacteria (NONE) /hpf 09/15/20 09/15/20 09/15/20 Range/Units 16:00 19:38 19:38 WBC (4.0-10.0) 10^3/ uL RBC (4.1-5.3) 10^6/u L Hgb (11.7-16.6) g/dL Hct (42.0-52.0) % MCV (80-94) fL MCH (28.0-34.0) pg MCHC (30.0-36.0) g/dL RDW (12.1-15.1) % Plt Count (130-400) 10^3/c mm MPV (7.4-10.4) fL Neut % (Auto) % Lymph % (Auto) % [place] % (Auto) % Eos % (Auto) % Baso % (Auto) % Neut # (Auto) (1.8-7.7) 10^3/u L Lymph # (Auto) (0.8-4.8) 10^3/u L [place] # (Auto) (0.2-0.9) 10^3/u L Eos # (Auto) (0.0-0.8) 10^3/u L Baso # (Auto) (0.0-0.1) 10^3/u L Nucleated RBC % (a uto) % Nucleated RBCs # /100WBC Sodium (136-145) mmol/L Potassium (3.5-5.1) mmol/L Chloride (98-107) mmol/L Carbon Dioxide (22-29) mmol/L Anion Gap (5-19) BUN (8-23) mg/dL Creatinine (0.7-1.2) mg/dL GFR Calculation Glucose (65-115) mg/dL Calculated Osmolal ity (285-295) mOsm/k g Lactic Acid (0.5-2.2) mmol/L Lactic Acid (Sepsi s) 2.0 (0.5-2.2) mmol/L Calcium (8.5-10.5) mg/dL Total Bilirubin (0.15-1.2) mg/dL AST (0-40) U/L ALT (0-41) U/L Alkaline Phosphata se (40-130) IU/L Troponin T Baselin e 96 H (0-15) ng/L Troponin T 120 Min [place] 107.5 H (0-15) ng/L Delta Troponin T 11.5 H* (0-10) ABS# NT-Pro-B Natriuret Pep (0-450) pg/mL Total Protein (6.6-8.7) g/dL Albumin (3.5-5.2) g/dL Globulin (1.3-4.6) g/dL Urine Color (Yellow) Urine Appearance (CLEAR) Urine pH (5-7) Ur Specific Gravit y (1.005-1.030) Urine Protein (Negative) Urine Glucose (UA) (Normal) Urine Ketones (Negative) Urine Blood (Negative) Urine Nitrate (Negative) Urine Bilirubin (Negative) Urine Urobilinogen (Negative) mg/dL Ur Leukocyte Alethea ase (Negative) Urine RBC (0-2) /hpf Urine WBC (0-5) /hpf Ur Squamous Epith Cells (0-5) /hpf Ur Transition Epit h Cell /hpf Amorphous Sediment /hpf Urine Bacteria (NONE) /hpf 09/15/20 Range/Units 20:15 WBC (4.0-10.0) 10^3/ uL RBC (4.1-5.3) 10^6/u L Hgb (11.7-16.6) g/dL Hct (42.0-52.0) % MCV (80-94) fL MCH (28.0-34.0) pg MCHC (30.0-36.0) g/dL RDW (12.1-15.1) % Plt Count (130-400) 10^3/c mm MPV (7.4-10.4) fL Neut % (Auto) % Lymph % (Auto) % [place] % (Auto) % Eos % (Auto) % Baso % (Auto) % Neut # (Auto) (1.8-7.7) 10^3/u L Lymph # (Auto) (0.8-4.8) 10^3/u L [place] # (Auto) (0.2-0.9) 10^3/u L Eos # (Auto) (0.0-0.8) 10^3/u L Baso # (Auto) (0.0-0.1) 10^3/u L Nucleated RBC % (a uto) % Nucleated RBCs # /100WBC Sodium (136-145) mmol/L Potassium (3.5-5.1) mmol/L Chloride (98-107) mmol/L Carbon Dioxide (22-29) mmol/L Anion Gap (5-19) BUN (8-23) mg/dL Creatinine (0.7-1.2) mg/dL GFR Calculation Glucose (65-115) mg/dL Calculated Osmolal ity (285-295) mOsm/k g Lactic Acid (0.5-2.2) mmol/L Lactic Acid (Sepsi s) (0.5-2.2) mmol/L Calcium (8.5-10.5) mg/dL Total Bilirubin (0.15-1.2) mg/dL AST (0-40) U/L ALT (0-41) U/L Alkaline Phosphata se (40-130) IU/L Troponin T Baselin e (0-15) ng/L Troponin T 120 Min [place] (0-15) ng/L Delta Troponin T (0-10) ABS# NT-Pro-B Natriuret Pep (0-450) pg/mL Total Protein (6.6-8.7) g/dL Albumin (3.5-5.2) g/dL Globulin (1.3-4.6) g/dL Urine Color Yellow (Yellow) Urine Appearance Clear (CLEAR) Urine pH 5 (5-7) Ur Specific Gravit y 1.015 (1.005-1.030) Urine Protein Trace (Negative) Urine Glucose (UA) 2+ (Normal) Urine Ketones Negative (Negative) Urine Blood 2+ H (Negative) Urine Nitrate Negative (Negative) Urine Bilirubin Neg (Negative) Urine Urobilinogen 1 H (Negative) mg/dL Ur Leukocyte Alethea ase Negative (Negative) Urine RBC 0-4 H (0-2) /hpf Urine WBC 5-10 H (0-5) /hpf Ur Squamous Epith Cells 0-4 H (0-5) /hpf Ur Transition Epit h Cell 0-4 /hpf Amorphous Sediment 1+ /hpf Urine Bacteria Trace (NONE) /hpf Discharge Plan Discharge Patient Disposition: Admitted As Inpatient Admit Provider: Jaret oRbert Clinical Impression: CHF (congestive heart failure), Cellulitis, Elevated troponin, Open wound of right foot Condition: Stable Coding Level of Care Code ED Standards Analyst for Maia Alexander
--- NOTE | 2020-09-15 22:16 | P.HP_ITS ---
Providers/Chief Complaint Admitting Physician: Jaret Robert MD Primary Care Provider: GISELA Bearden Chief Complaint: CONFUSION, WEAKNESS, INCONTINENCE, PAIN History of Present Illness Syed Whitt is a 80 year old male who has history of hypertension, diabetes, peripheral arterial disease, heart failure with reduced action fraction 20% and today with chief complaint of generalized weakness confusion and decreased p.o. intake. Patient is a poor historian, her [id number] is at the bedside who is endorsing that for last 2 to 3 days he seems very weak and lethargic, he sleeps all day, he barely wakes up to eat his p.o. intake has decreased significantly along urine output they have not noticed any vomiting, fever. Patient has not endorsed chest pain to the family members however he has been experiencing extreme shortness of breath on slightest bit of exertion. Does not use oxygen at home. Of note, last year there was some consideration given to pacemaker placement because of his symptomatic bradycardia. Patient is endorsing diaphoresis, orthopnea, PND, exertional shortness of breath however no chest pain. Diagnostics in the ER revealed sepsis, active drainage from his right plantar foot, wound with tunneling, serosanguineous discharge, he was given broad-spectrum antibiotics in the ER, EKG is not showing any ischemic or infarctive changes other than PVCs however his troponins are trending up baseline troponin greater than 100 he was started on ACS protocol for NSTEMI, hemodynamically stable. BMP revealed hyponatremia, clinically looks fluid overloaded BNP 5225, CTA rule out PE patchy bilateral lower lobe infiltrate, these findings are present on previous chest x-ray that was done over 09/08/2019 I do believe these are fibrotic changes, will get procalcitonin Of note, he does walk with his bare feet does not use offloading boot, he uses walker for ambulation Review of Systems Const: Reports: chills, body aches, change in appetite, change in weight, fatigue and malaise; Denies: fever(s) Eyes: Denies: change in vision ENMT: Denies: throat pain Card: Reports: swelling of feet/ankles, dyspnea on exertion and orthopnea Resp: Reports: dyspnea and non-productive cough GI: Denies: abdominal pain : Denies: flank pain Musc: Denies: neck pain Skin/Breast: Reports: lesions; Denies: rash Neuro: Reports: difficulty walking; Denies: headache(s) Psych: Reports: anxiety Endo: Denies: polyuria Renato/Lymph: Denies: easy bruising All/Imm: Denies: urticaria Medications/Allergies Home Medications Medication Instructions Recorded Confirmed Last Taken Type clopidogrel 75 mg tablet 75 mg PO QAM 09/24/19 09/15/20 09/13/20 History furosemide 20 mg tablet 20 mg PO QAM 09/24/19 09/15/20 09/13/20 History glimepiride 4 mg tablet 2 mg PO QAM tab 09/24/19 09/15/20 09/13/20 History metformin 500 mg tablet 500 mg PO QAM 09/24/19 09/15/20 09/13/20 History Glucosamine 1 tab PO PRN 09/15/20 09/15/20 Unknown History atorvastatin 40 mg PO QAM 09/15/20 09/15/20 Unknown History lisinopril 5 mg PO QAM 09/15/20 09/15/20 Unknown History metoprolol tartrate 25 mg PO QAM 09/15/20 09/15/20 09/13/20 History Allergies Allergy/AdvReac Type Severity Reaction Status Date / Time No Known Allergies Allergy Verified 09/15/20 16:10 PFSH Acute PFSH: Medical History (Updated 09/16/20 @ 00:19 by Jaret Robert MD) CAD (coronary artery disease) Diabetes Diabetic foot ulcer Heart failure with reduced ejection fraction Severely reduced ejection fraction 20% Hypertension PAD (peripheral artery disease) Syncope Due to hypoglycemia Surgical History 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) S/P peripheral artery angioplasty with stent placement Family History Denies family history of Hyperlipidemia Lung disease Hypertension Social History Smoking and tobacco status: former smoker Alcohol intake: current Alcohol intake frequency: 3 or more drinks per day Alcohol type: beer Housing: Other Details: Lives alone Vitals/I&O/Wt Last Vital Signs Temp 98.7 F 09/15/20 20:31 Pulse 89 09/15/20 20:31 Resp 20 H 09/15/20 20:31 BP 130/71 09/15/20 20:31 Pulse Ox 96 09/15/20 20:31 09/15/20 09/15/20 09/15/20 06:59 14:59 22:59 Intake Total 250 / 250 Balance 250 / 250 Physical Exam Narrative: EXAM NARRATIVE: Pleasant cooperative male was in semi- Salter position when I entered the room was saturating well on room air appears more than stated age Clinically looks fluid overloaded no active chest pain shortness of breath His right plantar foot wound is actively draining serosanguineous, hyperemia extending from his foot towards his ankle and lower part of his leg, nontender mild edema, wound tunneling Right foot metatarsal amputation S1, S2 signs of fluid overload Systolic murmur right second intercostal base Abdomen soft distended with visceral obesity, Bilateral breath sounds with mild wheezing on expiration No acute respite distress EOMI, PERRLA No neurological deficits Awake alert oriented x3 GCS 15 Data : 09/15/20 16:00 09/15/20 16:00 Micro: Microbiology 09/15/20 19:38 Blood Culture - Preliminary Blood SPECIMEN COLLECTED 09/15/20 16:00 Blood Culture - Preliminary Blood SPECIMEN COLLECTED Other data: Other Imaging: Radiologist's impression: TTE (04/13/2017) CONCLUSIONS Mildly dilated left ventricle with a severely depressed ejection fraction of 20%.severe diffuse hypokinesia, more so of the septum and anteroseptal segments. Mildly dilated right atrium, right ventricle and the left atrium. Thickened aortic and mitral valves is to mild mitral annular calcification. Mild mitral and tricuspid regurgitation. Mild pulmonary hypertension with an estimated pulmonary artery peak systolic pressure of 45 mmHg. This could be an underestimation because of the poor Doppler signals There is no significant pericardial effusion. There are no intracardiac masses. No previous study is available for comparison. Lower extremity arterial Doppler 27 Sep 2017 FINDINGS: The right brachial arterial pressure is 149 mm Hg. The right ankle dorsalis pedis arterial pressure is 127 mm Hg. The right ankle posterior tibial arterial pressure is 102 mm Hg. No right first toe arterial pressure obtained. The left brachial arterial pressure is 151 mm Hg. The left ankle posterior tibial arterial pressure is 101 mm Hg. The left first toe arterial pressure is 35 mm Hg. IMPRESSION: 1. Right ankle YURI: 0.84. No right toe arterial pressure. 2. Left ankle YURI: 0.67. 3. Left TBI: 0.23. Peripheral angiogram 28 November 2016 Peripheral Cath Diagnostic Procedure:Abdominal aortic angiography, Lower extremities' angiography Conclusions Peripheral Procedure Description Critical limb ischemia of right leg right and foot with pain at rest despite of optimization of medical therapy Severe claudication with chronically occluded ostial right SFA reconstituted above the popliteal artery with collaterals. Moderate claudication with mid 90% stenotic left SFA. Paige grade II,category 4:Del stage III. Procedure Summary Left common femoral artery was used to performed peripheral angiogram and intervention of the right superficial femoral artery Abdominal aortic angiogram was performed which showed luminal irregularity without any aneurysm. Both renal arteries were visualized and normal. Ostial right common iliac artery has 60% eccentric stenosis while left common iliac arteries showed luminal irregularities. The right and left external and internal iliac arteries showed luminal irregularities. Both profunda femoral arteries showed luminal irregularities. Right ostial SFA has chronic occlusion which reconstitute just above the popliteal artery in the middle of the SFA Successful Plain Balloon angioplasty followed by Drug-eluting stents to ostial to distal SFA Right superficial femoral artery was approached through left common femoral artery. Highly calcified chronically occluded ostial right superficial femoral artery was crossed with wire. Serial balloon angioplasties using AB ARMADA 35 ANALYSIS SPECIALIST catheter [id number], [id number], [id number] performed at 14 atmosphere followed by drug-eluting stents. Excellent angiographic result with good flow was achieved in the right superficial femoral artery with good three-vessel runoff. Recommendations 1-Return to inpatient for close monitoring and routine cath care 2-Risk factor modification for secondary prevention 3-Statin and aspirin 81 mg life?-long, if tolerated 4-Continue Plavix 75mg p.o. daily for at least one year. We will assess at the end of one year again to continue if further or not 5-Continue optimal medical management. Consider balloon angioplasty to left mid SFA TTE (August 31) CONCLUSIONS 1. Dilated left ventricle. Severely decreased left ventricular systolic function. Left ventricular ejection fraction is estimated at 25 %. Global left ventricular hypokinesis with severe hypokinesis of septal wall. Grade III diastolic dysfunction (restrictive filling pattern), severely elevated filling pressures. 2. No significant valvular abnormality. 3. Moderate pulmonary hypertension with pulmonary artery pressure estimated at 50 mmHg. 4. When compared to previous echocardiogram dated 04/13/2017, there may not have been any significant change. Lexiscan MPI (09/10/19) IMPRESSIONS 1. Large size predominantly fixed perfusion abnormality of severe severity of mid to apical anterior, entire inferior, mid lateral and apical huston. This is suggestive of old myocardial infarction or scarring in multiple vessels ( left anterior descending, right coronary artery and circumflex artery territory). 2. The left ventricular ejection fraction is markedly reduced with a value of 20%. 3. Severe global hypokinesis more pronounced in mid to apical anterior, inferior and apical huston. 4. No coronary ischemia based on the study. 5. No prior similar studies to compare. YURI (09/10/19) RIGHT LEFT Brachial 112.00 mmHg Brachial 111.00 mmHg Pressure (mmHg) Waveform Pressure (mmHg) Waveform 45.00 ANALYSIS SPECIALIST 48.00 41.00 DPA 44.00 0.40 Ankle/Brachial Index 0.43 Pre-Exercise Toe Pressure 39.00 Pre-Exercise Toe/Brachial Index 0.35 FINDINGS Markedly diminished resting ABIs bilaterally Diminished resting TBI on the left side CONCLUSIONS Features of severe obstructive peripheral artery disease bilaterally A&P Assessment and plan (1) Cellulitis: Status: Acute (2) Elevated troponin: Status: Acute (3) Open wound of right foot: Status: Acute (4) NSTEMI (non-ST elevated myocardial infarction): Status: Acute (5) Peripheral arterial disease: Status: Acute (6) Osteomyelitis: Status: Acute Additional A&P Information NSTEMI Troponin by 100, EKG without ischemic or infarctive changes EF 20%, no active chest pain hemodynamically stable we will start him on therapeutic dose of Lovenox and start loading dose of aspirin and Plavix start lisinopril and Toprol repeat echo in the morning CTA rule out PE, EKG showing right bundle branch block which is chronic Cellulitis of right foot Chronic osteomyelitis, open wound with tunneling, serosanguineous discharge noted, hyperemia extending from foot up to ankle and lower part of his leg, will request right lower extremity Doppler to rule out DVT Considering history of noncompliance with type 2 diabetes I will start him on vancomycin and Zosyn Sepsis due to cellulitis CT chest shows bilateral fibrotic/atelectasis is present pulmonary changes were present on previous imaging as well I do not suspect pneumonia at this time however will check procalcitonin level Sepsis is most likely secondary to open wound with tunneling however x-ray which is more specific for osteomyelitis did not show such changes Continue antibiotics Requested blood cultures Type 2 diabetes [id number]: We will keep him on moderate dose sliding scale Check A1c level Severely reduced action fraction heart failure Mild exacerbation Continue Lasix 20 mg daily On review of previous record he was DNR and DNI?for AICD was not considered however on today's evaluation patient is stating full code, kindly readdress in the morning Goals of care discussed with the patient and her [id number]: Full code, previous documentation revealed DNR/DNI status Cardiac diet DVT prophylaxis not indicated due to therapeutic use of Lovenox Attestations Medical Necessity Statement*: Anticipating stay in the hospital cross more than 2 midnights for management of sepsis, NSTEMI and open wound of right foot Time Spent in Patient Care: (>than 50% of time spent in counselling and/or direct pt care on unit) . 40mins Coding Level of Care Code Acute Pediatric Pathologist for [facility] Fwd Diagnoses Cellulitis L03.90 Elevated troponin R77.8 Open wound of right foot S91.301A NSTEMI (non-ST elevated myocardial infarction) I21.4 Peripheral arterial disease I73.9 Osteomyelitis M86.9
[2020-09-15] MEDS: aspirin 81 mg Chew Tablet 324 MG PO (22:28)
--- NOTE | 2020-09-15 22:53 | PC.NURSE ---
Patient received from ED via stretcher. Patient assisted from stretcher to wheelchair to bed. Patient able to transfer with minimal contact assist. Patient has partial right foot amputation that appears well healed. Various abrasions/wounds to toes on left foot. No s/s of infection observed. No other wounds observed presently. Patient has ZoAvvon running at this time. Dose from ED. Assessment performed as documented. Patient reports using a walker and wheelchair at home.
[2020-09-16] VITALS (12 sets, daily range): BP systolic 95–122; BP diastolic 47–89; PULSE 68–97; RESP 16–22; TEMP 36.6–37.6; O2SAT 93–98
--- NOTE | 2020-09-16 00:02 | USCV_ITS ---
Jose Eduardo Syed Age: 80 Gender: M : 1940 Exam Date: 09/16/2020 05:28 Ordering Phys: Jaret Robert MD Technologist: Steffi Haji [place] [facility] [place]: NSTEMI BP: 112 / 89 HR: 81 Rhythm: Sinus Technical Quality: Poor MEASUREMENTS (Male / Female) Normal Values 2D ECHO LV Diastolic Diameter PLAX 5.4 cm 4.2 - 5.9 / 3.9 - 5.3 cm LV Systolic Diameter PLAX 3.7 cm LV Chamber Size 4.1 cm IVS Diastolic Thickness 0.9 cm 0.6 - 1.0 / 0.6 - 0.9 cm IVS Systolic Thickness 1.1 cm LVPW Diastolic Thickness 1.1 cm 0.6 - 1.0 / 0.6 - 0.9 cm LVPW Systolic Thickness 1.1 cm RV Chamber Size 3.1 cm LVOT Diameter 2.1 cm LV Ejection Fraction 2D Teich 57.0 % LV Ejection Fraction MOD 2C 56.0 % LV Ejection Fraction 2C AL 56.8 % LA Diameter 4.2 cm LA Width 3.3 cm LA Height 4.3 cm RA Width 0.0 cm RA Height 3.7 cm Aorta at Sinotubular Diameter 2.6 cm M-MODE LV Diastolic Diameter MM 4.2 cm 4.2 - 5.9 / 3.9 - 5.3 cm LV Systolic Diameter MM 3.4 cm LV Ejection Fraction MM Teich 38.7 % IVS Diastolic Thickness MM 1.0 cm 0.6 - 1.0 / 0.6 - 0.9 cm IVS Systolic Thickness MM 1.0 cm LVPW Diastolic Thickness MM 1.3 cm 0.6 - 1.0 / 0.6 - 0.9 cm LVPW Systolic Thickness MM 1.3 cm Aortic Annulus Diameter 3.3 cm LA Ao Ratio MM 1.4 MV E Point Septal Separation 1.3 cm DOPPLER AV Peak Velocity 108.0 cm/s LVOT Peak Velocity 78.0 cm/s AV Area Cont Eq vti 2.8 cm squared AV Area Cont Eq pk 2.4 cm squared MV Area PHT 8.5 cm squared Mitral E to A Ratio 0.7 MV E' Velocity 42.0 cm/s Mitral E to MV E' Ratio 11.7 Mitral E to LV E' Lateral Ratio 9.8 Mitral E to LV E' Septal Ratio 14.6 TR Peak Velocity 112.6 cm/s TR Peak Gradient 5.1 mmHg TR Mean Velocity 72.7 cm/s TR Mean Gradient 2.6 mmHg TR Velocity Time Integral 26.4 cm TV Peak E Velocity 55.0 cm/s Right Atrial Pressure 3.0 mmHg Pulmonary Artery Systolic Pressu 8.1 mmHg PV Peak Velocity 65.0 cm/s RV Acceleration Time 0.1 s RV Ejection Time 0.2 s RV AcT/ET 0.4 FINDINGS Left Ventricle Moderately increased left ventricular cavity size. Moderately decreased left ventricular systolic function. Left ventricular ejection fraction is estimated at 40 %. Global left ventricular hypokinesis. Grade I/IV diastolic dysfunction (abnormal relaxation filling pattern), normal to mildly elevated filling pressures. Right Ventricle The right ventricle is normal in size and function. Right Atrium The right atrium is normal in size. Left Atrium The left atrium is normal in size. Mitral Valve Structurally normal mitral valve without significant stenosis or prolapse. There is no mitral regurgitation. Aortic Valve Moderate aortic valve calcification. There appeared to be aortic valve sclerosis, mean gradient 2.6 mmHg, ANJU 2.8 cm squared. Mild aortic valve regurgitation. Tricuspid Valve Structurally normal tricuspid valve without significant stenosis or regurgitation. Pulmonary artery systolic pressure is normal. Pulmonic Valve Structurally normal pulmonic valve without significant stenosis. There is no pulmonic regurgitation. Pericardium Normal pericardium without effusion. Aorta Normal ascending aorta dimension. CONCLUSIONS 1-Moderately increased left ventricular cavity size. Moderately decreased left ventricular systolic function. Left ventricular ejection fraction is estimated at 40 %. Global left ventricular hypokinesis. Grade I/IV diastolic dysfunction (abnormal relaxation filling pattern), normal to mildly elevated filling pressures. 2-Moderate aortic valve calcification. There appeared to be aortic valve sclerosis, mean gradient 2.6 mmHg, ANJU 2.8 cm squared. Mild aortic valve regurgitation. 3-Structurally normal tricuspid valve without significant stenosis or regurgitation. Pulmonary artery systolic pressure is normal. 4-Pulmonary artery systolic pressure is within normal limits. 5-There is no pericardial effusion. 6-Right atrial pressure is around 5 mm of mercury. 7-When compared to the prior echocardiogram dated 09 September 2019 left ventricle ejection fraction has improved from severely depressed 25% to moderately depressed 40% now. Jaret Valle MD (Electronically Signed) Final Date: 16 Sep 2020 19:06 S
--- NOTE | 2020-09-16 00:06 | USCV_ITS ---
Syed Whitt Age: 80 Gender: M : 1940 Exam Date: 09/16/2020 05:56 Ordering Phys: Jaret Robert MD Technologist: Michaela De Leon Exam Location: [facility] [place] Indication: RLE EDEMA AND REDNESS HISTORY: Lower extremity swelling. Lower extremity pain. PROCEDURES: Venous duplex imaging was performed in only the right lower extremity. Bilaterally, the common femoral, superficial femoral, profunda femoral, popliteal, posterior tibial, greater saphenous veins, and the peroneal trunk were identified and interrogated in the standard fashion. These veins were found to be easily compressible with spontaneous blood flow. No evidence of insufficiency or thrombus noted. Serial compression, augmentation maneuvers, and spectral Doppler flow evaluation were performed. FINDINGS: LT PTV NON COMPRESSIBLE AND LT LSV NON COMPRESSIBLE ALL OTHER VEINS APPEAR PATENT CONCLUSIONS Right posterior tibial DVT Thrombus in the right lesser saphenous vein Remainder patent Enlarged lymph node Right groin 2.5 x 0.8 nonspecific but may be reactive Waldo Burns MD (Electronically Signed) Final Date: 16 Sep 2020 18:13 S
--- NOTE | 2020-09-16 00:36 | PC.NURSE ---
Patient taking Plavix 75mg PO daily. Verified order of Plavix 300mg PO once with Dr Robert and received order to not give this loading dose.
[2020-09-16 00:39] LABS: D Dimer 5.17 ug/mIFEU (0-0.59)
[2020-09-16] MEDS: enoxaparin 100 mg/mL Syringe 70 MG SUBCUT ×2 (00:39→13:02)
--- NOTE | 2020-09-16 00:42 | PC.PHAR ---
Pharmacokinetic dosing service Date: 09/16/20 Time: 44 Objective: Patient: Syed Whitt Floor: 111-2 Age: 80 yo Serum creatinine: 1.0 mg/dL Height: 72.0 Inches Weight (kg): 74.979 Diagnosis: Relevant medical/social history: Cultures and sensitivities: Other labs: Assessment: IBW (kg): 77.60 Dosing wt(kg): 74.979 Estimated Creatinine clearance (ml/min): 64.6 CRCL method: Cockcroft and Gault using ibw(default). Drug selected: Vancomycin Loading dose (mg): 0 Vd (liters): 67.5 (factor used: 0.9 L/kg) Maury (hr-1): 0.058 Half life (hrs): 11.95 Recommended dose: 1000 mg Interval: 12 hrs Infusion time (hrs): 1.5 Predicted peak (mcg/mL): 28.3 Predicted trough (mcg/mL): 15.39 Total body weight is being used for vancomycin dosing. Renal function is stable [ ] /unstable [ ] Recommendations: Give Vancomycin 1000 mg q 12 hrs with an expected Cpeak of 28.3 mcg/ml and an expected Ctrough of 15.39 mcg/ml Renal dosing of other antibiotics (review renal dosing of other medications and list guidelines here): Thank you for the consult, will continue to follow. Signature: Apoorva Ziegler [facility]
[2020-09-16] MEDS: vancomycin 1,000 MG in sodium chloride 0.9% 250 ML 250 MG IV ×2 (04:28→17:48)
[2020-09-16 05:25] LABS: Basophils % 0.3 %; Eosinophils # 0.1 10^3/uL (0.0-0.8); Eosinophils % 0.5 %; Hematocrit 41.3 % (42.0-52.0); Hemoglobin 13.5 g/dL (11.7-16.6); Lymphocytes % 9.8 %; Mean Corpuscular HGB Conc 32.7 g/dL (30.0-36.0); Mean Corpuscular Hemoglobin 31.9 pg (28.0-34.0); Mean Corpuscular Volume 97.6 fL (80-94); Mean Platelet Volume 11.2 fL (7.4-10.4); Monocytes # 1.1 10^3/uL (0.2-0.9); Monocytes % 10.7 %; Neutrophils # 7.77 10^3/uL (1.8-7.7); Neutrophils % 78.1 %; Nucleated Red Blood Cells % 0 %; Platelet Count 225 10^3/cmm (130-400); Red Blood Count 4.23 10^6/uL (4.1-5.3); White Blood Count 9.9 10^3/uL (4.0-10.0)
[2020-09-16] MEDS: atorvastatin 40 mg Tablet 80 MG PO (05:27)
[2020-09-16] MEDS: piperacillin-tazobactam 3.375 GM in sodium chloride 0.9% (plus) 50 ML IV ×2 (05:27→18:55)
[2020-09-16] MEDS: lisinopril 5 mg Tablet PO (05:28)
[2020-09-16] MEDS: FUROsemide 20 mg Tablet PO (05:28)
[2020-09-16] MEDS: clopidogrel 75 mg Tablet PO (05:28)
[2020-09-16 05:51] LABS: Anion Gap 14.3 (5-19); Blood Urea Nitrogen 23 mg/dL (8-23); Calcium 8.2 mg/dL (8.5-10.5); Carbon Dioxide 26 mmol/L (22-29); Chloride 97 mmol/L (98-107); Glucose 126 mg/dL (65-115); Osmolality Calculated 283 mOsm/kg (285-295); Potassium 3.3 mmol/L (3.5-5.1); Sodium 134 mmol/L (136-145)
[2020-09-16 06:54] LABS: Glucose Point of Care 134 mg/dL (70-110)
[2020-09-16] MEDS: aspirin 81 mg EC Tablet PO (09:35)
--- NOTE | 2020-09-16 09:39 | PC.NURSE ---
spoke with Dr acevedo with concerns of patient having lower than normal blood pressure with a WNL hr instructions to hold this am dose of metoprolol
[2020-09-16 11:37] LABS: Glucose Point of Care 187 mg/dL (70-110)
--- NOTE | 2020-09-16 11:43 | PC.CHAP ---
Pastoral Care Encounter/Spiritual Assessment Type of Contact [] Declined school leader visit [] Patient/Family/Request visit [] Outpatient visit [] Follow-up visit [] Physician referral [] Code/Alert [] Routine visit [] Staff referral [] Actively dying [xx] Patient sleeping [] Family support [] [] Out of room [] Palliative care [] [] Receiving care in room [] Pre-surgical visit [] Trauma [] Long length of stay [] ICU visit [] Other: Relational/Emotional Strength [] Patient feels connected with others/family/visitors/staff [] Distress [] Loneliness/isolation [] Abandonment Spirituality of Patient [] Person of Lorie [] Attends Religious of their Lorie [] Believes in Prayer [] Reads Bible or Voodoo materials [] There are Spiritual issues to be addressed Medical Videographer Interventions [] Prayer [] Active listening [] Non-anxious presence [] Spiritual/emotional support [] Crisis/trauma care [] Spiritual counseling [] Bereavement support [] Provided bereavement packet [] Provided Bible/devotional materials [] Provided toy/stuffed animal, coloring book to patient or family member [] Provided Communion [] Anointing/Sayner [] Salvation [] Completed spiritual assessment [] Other: Impact on Illness or Injury [] Angry [] Fearful [] Anxious [] Often cries [] Exhaustion [] Unable to work [] Unable to attend buddhism [] Unable to walk/stand [] Unable to read [] Unable to drive [] Unable to eat/drink [] Unable to sleep [] Unable to be with family [] Patient intubated [] Other: Summary Follow up needed. Time spent with patient
[2020-09-16] MEDS: pantoprazole DR 40 mg Tablet PO (13:03)
--- NOTE | 2020-09-16 13:50 | P.PN_ITS ---
Subjective Subjective: Interval history: no acute interim events overnight, H&P reviewed. 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: no focal neuro deficits Data : 09/16/20 04:20 09/16/20 04:20 Micro: Microbiology 09/15/20 19:38 Blood Culture - Preliminary Blood SPECIMEN COLLECTED 09/15/20 16:00 Blood Culture - Preliminary Blood SPECIMEN COLLECTED A&P Assessment and plan (1) Cellulitis: Status: Acute (2) Elevated troponin: Status: Acute (3) Open wound of right foot: Status: Acute (4) NSTEMI (non-ST elevated myocardial infarction): Status: Acute (5) Peripheral arterial disease: Status: Acute (6) Osteomyelitis: Status: Acute Additional A&P Information NSTEMI Likely 2/2 emans supply mismatch in the background of ischemic cardiomyopathy Troponin by 100, EKG without ischemic or infarctive changes EF 20%, no active chest pain hemodynamically stable Continue therapeutic dose of Lovenox . aspirin and Plavix start lisinopril and Toprol repeat echo pending CTA rule out PE negative for the same Cellulitis of right foot Improving on zosyn and vancomycin No evidence of osteomyelitis on X ray, check ESR and CRP Sepsis due to cellulitis, now improving Continue antibiotics Requested blood cultures, pending Type 2 diabetes [id number]: We will keep him on moderate dose sliding scale Severely reduced action fraction heart failure Currently with acute on chronic systolic heart failure exacerbation Change lasix to 40mg iv daily Goals of care discussed with the patient and her [id number]: Full code, previous documentation revealed DNR/DNI status Cardiac diet DVT prophylaxis not indicated due to therapeutic use of Lovenox Attestations Medical Necessity Statement*: need for iv diuresis, CHF exacerbation, iv abx Coding Level of Care Code Acute Electric System Operator for g Fwd Diagnoses Cellulitis L03.90 Elevated troponin R77.8 Open wound of right foot S91.301A NSTEMI (non-ST elevated myocardial infarction) I21.4 Peripheral arterial disease I73.9 Osteomyelitis M86.9
[2020-09-16 16:46] LABS: Glucose Point of Care 191 mg/dL (70-110)
[2020-09-16 18:19] LABS: Vancomycin Trough 24.3 ug/mL (10-15)
[2020-09-16] MEDS: potassium chloride ER 20 mEq Tablet 40 MEQ PO (18:55)
[2020-09-16] MEDS: FUROsemide 10 mg/mL SDV 4mL 40 MG IVP (18:56)
--- NOTE | 2020-09-16 19:30 | NPU.GN ---
Cardiac Stepdown Group Topic: General Mood of Group
--- NOTE | 2020-09-16 19:31 | PC.NURSE ---
spoke with Dr. Chase due to missed dose of randell olmedo okayed to re-time spoke with kareem in pharmacy start after vanc does received call from pharmacy after dose of vanc started to stop it and waste remainder due to anc trough levels
--- NOTE | 2020-09-16 19:47 | PC.NURSE ---
Bedside report received from Thea Parrish Patient is lying in bed with the covers over his head. Patient allowed me to listen to his heart and lungs but would not allow me to do his skin assessment. Patient stated I should leave him alone and he will let me know when he needs me. Nurse will continue to monitor.
[2020-09-17] VITALS (12 sets, daily range): BP systolic 104–123; BP diastolic 45–62; PULSE 66–86; RESP 12–24; TEMP 36.6–37.2; O2SAT 94–97
[2020-09-17] MEDS: enoxaparin 100 mg/mL Syringe 70 MG SUBCUT (00:11)
[2020-09-17] MEDS: piperacillin-tazobactam 3.375 GM in sodium chloride 0.9% (plus) 50 ML IV ×2 (02:09→20:43)
[2020-09-17 05:43] LABS: Basophils % 0.1 %; Eosinophils % 0.4 %; Hematocrit 37.4 % (42.0-52.0); Hemoglobin 12.7 g/dL (11.7-16.6); Lymphocytes # 0.8 10^3/uL (0.8-4.8); Lymphocytes % 7.9 %; Mean Corpuscular Hemoglobin 32.3 pg (28.0-34.0); Mean Corpuscular Volume 95.2 fL (80-94); Mean Platelet Volume 10.5 fL (7.4-10.4); Monocytes # 0.8 10^3/uL (0.2-0.9); Neutrophils # 8.14 10^3/uL (1.8-7.7); Neutrophils % 83.1 %; Nucleated Red Blood Cells % 0 %; Platelet Count 251 10^3/cmm (130-400); Red Blood Count 3.93 10^6/uL (4.1-5.3); Red Cell Distribution Width 12.8 % (12.1-15.1); White Blood Count 9.8 10^3/uL (4.0-10.0)
[2020-09-17 06:03] LABS: Alanine Aminotransferase 20 U/L (0-41); Albumin Level 2.6 g/dL (3.5-5.2); Alkaline Phosphatase 72 IU/L (40-130); Anion Gap 14.5 (5-19); Aspartate Amino Transferase 21 U/L (0-40); Blood Urea Nitrogen 28 mg/dL (8-23); Calcium 8.1 mg/dL (8.5-10.5); Carbon Dioxide 25 mmol/L (22-29); Chloride 98 mmol/L (98-107); Globulin 3.1 g/dL (1.3-4.6); Glucose 149 mg/dL (65-115); Osmolality Calculated 286 mOsm/kg (285-295); Potassium 3.5 mmol/L (3.5-5.1); Sodium 134 mmol/L (136-145); Total Bilirubin 0.8 mg/dL (0.15-1.2); Total Protein 5.7 g/dL (6.6-8.7)
[2020-09-17] MEDS: atorvastatin 40 mg Tablet 80 MG PO (06:05)
[2020-09-17] MEDS: lisinopril 5 mg Tablet PO (06:05)
[2020-09-17] MEDS: clopidogrel 75 mg Tablet PO (06:05)
[2020-09-17 06:06] LABS: C Reactive Protein 127.7 mg/L (0.0-4.9)
[2020-09-17 06:25] LABS: Erythrocyte Sedimentation Rate 52 mm/hr (0-10)
[2020-09-17 06:37] LABS: Glucose Point of Care 152 mg/dL (70-110)
[2020-09-17] MEDS: aspirin 81 mg EC Tablet PO (08:46)
[2020-09-17] MEDS: metoprolol succinate ER (24 HR) 25 mg Tablet 12.5 MG PO (08:46)
[2020-09-17] MEDS: pantoprazole DR 40 mg Tablet PO (08:46)
--- NOTE | 2020-09-17 11:16 | P.PN_ITS ---
Subjective Subjective: Interval history: Feel like he is improving, foot looks improved, RLE DVT on venous duplex. 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 Data : 09/17/20 04:48 09/17/20 04:48 Micro: Microbiology 09/15/20 19:38 Blood Culture - Preliminary Blood NEGATIVE TO DATE 09/15/20 16:00 Blood Culture - Preliminary Blood NEGATIVE TO DATE A&P Assessment and plan (1) Cellulitis: Status: Acute (2) Elevated troponin: Status: Acute (3) Open wound of right foot: Status: Acute (4) NSTEMI (non-ST elevated myocardial infarction): Status: Acute (5) Peripheral arterial disease: Status: Acute (6) Osteomyelitis: Status: Acute Additional A&P Information NSTEMI Likely 2/2 demand supply mismatch/tyoe 2 [place] in the background of ischemic cardiomyopathy EKG without ischemic or infarctive changes EF 20%, no active chest pain, hemodynamically stable Continue aspirin and Plavix, lisinopril and Toprol repeat echo Left ventricular ejection fraction is estimated at 40 %. Global left ventricular hypokinesis, improved over previously. Grade I/IV diastolic dysfunction Resume po lasix 40mg daily CTA rule out PE negative for the same Cellulitis of right foot Chronic Right heel wound, follows with wound care clinic at [facility] Improving on zosyn and vancomycin, change to augmentin and cipro in anticioation of upcoming discharge No evidence of osteomyelitis on X ray, ESR and CRP elevated but hard to interpret in the presence of DVT RLE DVT Right posterior tibial DVT Thrombus in the right lesser saphenous vein Strated on Eliquis 10mg BID x 7 days, then reduce dose to 5mg BID Type 2 diabetes [id number]: We will keep him on moderate dose sliding scale Severely reduced action fraction heart failure Currently with acute on chronic systolic heart failure exacerbation Change lasix to 40mg iv daily Cardiac diet DVT prophylaxis: Currently on eliquis for PE Attestations Medical Necessity Statement*: PE, started anticoagulation, change iv to po abx and monitor closely, planned discharge in the upcoming 24 hrs if remains afebrile Coding Level of Care Code Acute Design Inserter for [facility] Fwd Diagnoses Cellulitis L03.90 Elevated troponin R77.8 Open wound of right foot S91.301A NSTEMI (non-ST elevated myocardial infarction) I21.4 Peripheral arterial disease I73.9 Osteomyelitis M86.9
[2020-09-17 11:33] LABS: Glucose Point of Care 230 mg/dL (70-110)
--- NOTE | 2020-09-17 12:54 | PC.CHAP ---
Pastoral Care Encounter/Spiritual Assessment Type of Contact [xx] Declined national opelint analyst visit [] Patient/Family/Request visit [] Outpatient visit [] Follow-up visit [] Physician referral [] Code/Alert [] Routine visit [] Staff referral [] Actively dying [] Patient sleeping [] Family support [] [] Out of room [] Palliative care [] [] Receiving care in room [] Pre-surgical visit [] Trauma [] Long length of stay [] ICU visit [] Other: Relational/Emotional Strength [] Patient feels connected with others/family/visitors/staff [] Distress [] Loneliness/isolation [] Abandonment Spirituality of Patient [] Person of Lorie [] Attends Catholic of their Lorie [] Believes in Prayer [] Reads Bible or Gnosticist materials [] There are Spiritual issues to be addressed College Counselor Interventions [] Prayer [] Active listening [] Non-anxious presence [] Spiritual/emotional support [] Crisis/trauma care [] Spiritual counseling [] Bereavement support [] Provided bereavement packet [] Provided Bible/devotional materials [] Provided toy/stuffed animal, coloring book to patient or family member [] Provided Communion [] Anointing/[place] [] Salvation [] Completed spiritual assessment [] Other: Impact on Illness or Injury [] Angry [] Fearful [] Anxious [] Often cries [] Exhaustion [] Unable to work [] Unable to attend amish [] Unable to walk/stand [] Unable to read [] Unable to drive [] Unable to eat/drink [] Unable to sleep [] Unable to be with family [] Patient intubated [] Other: Summary Patient declined all contact by national opelint analyst. Visit not completed. Time spent with patient 1 minute
[2020-09-17 16:18] LABS: Glucose Point of Care 200 mg/dL (70-110)
[2020-09-17 16:44] LABS: SARS Covid-2 Antigen Negative (Negative)
--- NOTE | 2020-09-17 17:13 | PC.PT ---
Found patient sitting on edge of bed eating supper, i told him I would come back later he said not to come back. He did not know who I was or what I was therefore
[2020-09-17] MEDS: amoxicillin-clav 875-125 mg Tablet 1 TAB PO (17:28)
--- NOTE | 2020-09-17 19:39 | PC.NURSE ---
Performed dressing change to right foot as ordered. Obtained culture and sent to lab. Noted increased redness, warmth, and swelling to right chowdhury. Patient tolerated dressing change well.
[2020-09-17 20:22] LABS: Glucose Point of Care 109 mg/dL (70-110)
--- NOTE | 2020-09-17 20:26 | PC.NURSE ---
Patient is resting in bed with the covers over his head. patient has no C/O of pain at this time. Gave a patient a [place]. Nurse will continue to monitor.
[2020-09-17] MEDS: apixaban 5 mg Tablet 10 MG PO (20:43)
--- NOTE | 2020-09-17 21:11 | PC.NURSE ---
Patient c/o pain to IV site in right forearm. Noted arm to be warm, red and swollen. Arm is red to from hand to elbow. Removed IV site. Initiated new 20g IV to left forearm per protocol. Patient tolerated well
[2020-09-18] VITALS (10 sets, daily range): BP systolic 114–134; BP diastolic 46–61; PULSE 61–81; RESP 14–18; TEMP 36.8–36.9; O2SAT 93–98
[2020-09-18] MEDS: piperacillin-tazobactam 3.375 GM in sodium chloride 0.9% (plus) 50 ML IV ×3 (03:20→19:02)
[2020-09-18 05:23] LABS: Alanine Aminotransferase 17 U/L (0-41); Albumin Level 2.5 g/dL (3.5-5.2); Alkaline Phosphatase 98 IU/L (40-130); Anion Gap 12.3 (5-19); Aspartate Amino Transferase 18 U/L (0-40); Blood Urea Nitrogen 28 mg/dL (8-23); Calcium 8.3 mg/dL (8.5-10.5); Carbon Dioxide 25 mmol/L (22-29); Chloride 99 mmol/L (98-107); Globulin 3.5 g/dL (1.3-4.6); Glucose 135 mg/dL (65-115); Osmolality Calculated 284 mOsm/kg (285-295); Potassium 3.3 mmol/L (3.5-5.1); Sodium 133 mmol/L (136-145); Total Bilirubin 0.6 mg/dL (0.15-1.2)
[2020-09-18] MEDS: atorvastatin 40 mg Tablet 80 MG PO (06:12)
[2020-09-18] MEDS: clopidogrel 75 mg Tablet PO (06:13)
[2020-09-18] MEDS: lisinopril 5 mg Tablet PO (06:13)
[2020-09-18 06:42] LABS: Glucose Point of Care 146 mg/dL (70-110)
[2020-09-18] MEDS: metoprolol succinate ER (24 HR) 25 mg Tablet 12.5 MG PO (09:47)
[2020-09-18] MEDS: aspirin 81 mg EC Tablet PO (09:48)
[2020-09-18] MEDS: apixaban 5 mg Tablet 10 MG PO ×2 (09:48→20:45)
[2020-09-18] MEDS: pantoprazole DR 40 mg Tablet PO (09:48)
[2020-09-18 11:26] LABS: Glucose Point of Care 311 mg/dL (70-110)
--- NOTE | 2020-09-18 13:30 | PM.PN ---
Subjective Subjective: Interval history: Blood culture last evening was reported as positive for gram-negative rods, pending identification. Was restarted on Zosyn with recovery of these findings. Repeat blood cultures taken this morning to ensure clearance. Afebrile, hemodynamically stable. Upset at not being discharged today. 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 Data : 09/17/20 04:48 09/18/20 02:58 Micro: Microbiology 09/17/20 19:00 Gram Stain - Final Toe - #1 09/18/20 03:06 Blood Culture - Preliminary Blood SPECIMEN COLLECTED 09/18/20 02:58 Blood Culture - Preliminary Blood SPECIMEN COLLECTED 09/15/20 19:38 Blood Culture - Preliminary Blood Gram Negative Rods A&P Assessment and plan (1) Cellulitis: Status: Acute (2) Elevated troponin: Status: Acute (3) Open wound of right foot: Status: Acute (4) NSTEMI (non-ST elevated myocardial infarction): Status: Acute (5) Peripheral arterial disease: Status: Acute (6) Osteomyelitis: Status: Acute Additional A&P Information NSTEMI Likely 2/2 demand supply mismatch/tyoe 2 [place] in the background of ischemic cardiomyopathy EKG without ischemic or infarctive changes, no active chest pain, hemodynamically stable, EF improved over previous numbers Continue Plavix, lisinopril and Toprol, discontinue aspirin 81 as Eliquis has been added to the regimen. We will plan to continue on Plavix and Eliquis. repeat echo Left ventricular ejection fraction is estimated at 40 %. Global left ventricular hypokinesis, improved over previously. Grade I/IV diastolic dysfunction Resume po lasix 40mg daily CTA rule out PE negative for the same Cellulitis of right foot Chronic Right heel wound, follows with wound care clinic at [facility] Improving on zosyn and vancomycin, elevated CRP and ESR x-ray without any evidence of osteomyelitis. Blood culture now reported positive as gram-negative rods, pending identification Gram-negative ying bacteremia: Source may be cellulitis and infected wound wound over the foot, however given patient's abdominal symptoms 1 week prior to presentation which included early satiety, loss of appetite, weight loss, increasing difficulty in salivation with swallowing, would like to exclude GI malignancy. CT of the abdomen and pelvis today. RLE DVT Right posterior tibial DVT Thrombus in the right lesser saphenous vein Strated on Eliquis 10mg BID x 7 days, then reduce dose to 5mg BID Type 2 diabetes [id number]-[id number]: We will keep him on moderate dose sliding scale for now and check 24-hour requirement to add Lantus to his regimen. reduced ejection fraction heart failure, echocardiogram shows improved EF compared to prior echo Currently with acute on chronic systolic heart failure exacerbation which is now resolved, patient is currently euvolemic Start 20 mg p.o. Lasix daily Cardiac diet DVT prophylaxis: Currently on eliquis for PE Attestations Medical Necessity Statement*: Gram-negative ying bacteremia, pending identification and susceptibility testing, awaiting clearance of blood culture for at least 48 hours. Coding Level of Care Code Acute Telephone Order Supervisor for [facility] Benjamin Diagnoses Cellulitis L03.90 Elevated troponin R77.8 Open wound of right foot S91.301A NSTEMI (non-ST elevated myocardial infarction) I21.4 Peripheral arterial disease I73.9 Osteomyelitis M86.9
--- NOTE | 2020-09-18 13:33 | CTR_ITS ---
PROCEDURE INFORMATION: Exam: CT Abdomen And Pelvis Without Contrast Exam date and time: 09/18/2020 7:47 PM Age: 80 years old Clinical indication: Abdominal pain; Generalized; Patient HX: C/O abd pain and nausea; Additional info: Gram negative bacteremia TECHNIQUE: Imaging protocol: Computed tomography of the abdomen and pelvis without contrast. Radiation optimization: All CT scans at this facility use at least one of these dose optimization techniques: automated exposure control; mA and/or kV adjustment per patient size (includes targeted exams where dose is matched to clinical indication); or iterative reconstruction. COMPARISON: No relevant prior studies available. RADIATION DOSE METRICS: Total DLP (mGy-cm): 1607.12 FINDINGS: Lungs: Consolidation with irregular margins in the posterior right lower lobe. Discoid atelectasis or scarring in the left lower lobe and lingula. Pleural spaces: Trace left pleural fluid. Mild posterior pleural thickening suspected. Mediastinal space: Hiatal hernia. Liver: Calcified granulomas in the liver. Gallbladder and bile ducts: Partially contracted gallbladder. The bile ducts are normal. Pancreas: Normal. No ductal dilation. Spleen: Normal. No splenomegaly. Adrenal glands: Normal. No mass. Kidneys and ureters: Punctate calcifications in both kidneys are most likely vascular calcifications. Tiny nonobstructing calculi are not excluded. No hydronephrosis. Perinephric stranding is most likely physiologic. Stomach and bowel: Unremarkable. No obstruction. No mucosal thickening. Appendix: The appendix is visualized and is normal. Intraperitoneal space: Unremarkable. No free air. No significant fluid collection. Vasculature: Coronary artery calcifications. Atherosclerotic calcifications. No aneurysm. Lymph nodes: Unremarkable. No enlarged lymph nodes. Urinary bladder: Unremarkable as visualized. Reproductive: Calcifications in the prostate. Bones/joints: Degenerative changes of the spine. Multiple Schmorl's nodes. No acute compression fracture. Soft tissues: Small fat containing inguinal hernias. CT/CT abdomen pelvis wo con [id number] IMPRESSION: 1. No acute abnormality identified in the abdomen or pelvis. 2. Opacities in the lung bases is most likely a combination of atelectasis and right lower lobe fibrosis. Radiation Dose CTDIVOL = (mGy): DLP = 1607.12 (mGy-cm)
[2020-09-18] MEDS: potassium chloride ER 20 mEq Tablet 40 MEQ PO (16:24)
[2020-09-18 16:32] LABS: Glucose Point of Care 82 mg/dL (70-110)
--- NOTE | 2020-09-18 19:00 | PC.NURSE ---
Patient is resting in bed with covers over his head upon start on shift. Patient voices no complaints of pain or needs at this time. Nurse will continue to monitor.
[2020-09-18 20:25] LABS: Glucose Point of Care 172 mg/dL (70-110)
[2020-09-19] VITALS (11 sets, daily range): BP systolic 93–122; BP diastolic 50–67; PULSE 66–77; RESP 12–24; TEMP 36.8–37.1; O2SAT 93–98
[2020-09-19] MEDS: piperacillin-tazobactam 3.375 GM in sodium chloride 0.9% (plus) 50 ML IV ×2 (03:33→10:12)
[2020-09-19] MEDS: atorvastatin 40 mg Tablet 80 MG PO (06:14)
[2020-09-19] MEDS: clopidogrel 75 mg Tablet PO (06:14)
[2020-09-19] MEDS: lisinopril 5 mg Tablet PO (06:15)
[2020-09-19 07:00] LABS: Glucose Point of Care 132 mg/dL (70-110)
[2020-09-19] MEDS: apixaban 5 mg Tablet 10 MG PO ×2 (08:58→19:43)
[2020-09-19] MEDS: pantoprazole DR 40 mg Tablet PO (08:58)
[2020-09-19] MEDS: metoprolol succinate ER (24 HR) 25 mg Tablet 12.5 MG PO (08:58)
[2020-09-19] MEDS: FUROsemide 20 mg Tablet PO (08:59)
[2020-09-19 11:41] LABS: Glucose Point of Care 213 mg/dL (70-110)
--- NOTE | 2020-09-19 15:04 | P.PN_ITS ---
Subjective Subjective: Interval history: no new complaints today, denies current pain, noted to have LE edema today, encouraged nt to keep his leg in dependent position. Afberile. 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 EXT: Right foot with unhanged ulcer at base with some discharge, currently with dressing in place Data : 09/17/20 04:48 09/18/20 02:58 Micro: Microbiology 09/15/20 19:38 Blood Culture - Preliminary Blood Morganella morganii 09/18/20 03:06 Blood Culture - Preliminary Blood NEGATIVE TO DATE 09/18/20 02:58 Blood Culture - Preliminary Blood NEGATIVE TO DATE A&P Assessment and plan (1) Cellulitis: Status: Acute (2) Elevated troponin: Status: Acute (3) Open wound of right foot: Status: Acute (4) NSTEMI (non-ST elevated myocardial infarction): Status: Acute (5) Peripheral arterial disease: Status: Acute (6) Osteomyelitis: Status: Acute Additional A&P Information NSTEMI Likely 2/2 demand supply mismatch/type 2 [place] in the background of ischemic cardiomyopathy EKG without ischemic or infarctive changes, no active chest pain, hemodynamically stable, EF improved over previous numbers Continue Plavix, lisinopril and Toprol, discontinue aspirin 81 as Eliquis has been added to the regimen. We will plan to continue on Plavix and Eliquis. repeat echo Left ventricular ejection fraction is estimated at 40 %. Global left ventricular hypokinesis, improved over previously. Grade I/IV diastolic dysfunction Resume po lasix, increase dose to 40mg daily CTA rule out PE negative for the same Cellulitis of right foot Chronic Right plantar wound, follows with wound care clinic at [facility] Improving on zosyn and vancomycin as inpatient, elevated CRP and ESR x-ray without any evidence of osteomyelitis. Blood culture reported positive as gram-negative rods, identified as Morganella. Transition to oral ciprofloxacin (cx directed) and Augmentin (retain coverage for staph, strep, anaerobes), plan for treatment for 2 weeks. Gram-negative ying bacteremia: Source likely to be cellulitis and infected wound wound over the foot. however given patient's abdominal symptoms 1 week prior to presentation which included early satiety, loss of appetite, weight loss, Ct abdomen was performed, negative for acute abdominal events. RLE DVT Right posterior tibial DVT Thrombus in the right lesser saphenous vein Strated on Eliquis 10mg BID x 7 days, then reduce dose to 5mg BID Type 2 diabetes eoc-knuxnll-[id number]: ISS reduced ejection fraction heart failure, echocardiogram shows improved EF compared to prior echo, now at LVEF 40% Currently with acute on chronic systolic heart failure exacerbation this admission, additional 20mg iv lasix today as developing LE swelling , increase daily po dose to 40mg. Cardiac diet DVT prophylaxis: Currently on eliquis for PE dispo: Planned discharge once cx negative for ~48 hrs Attestations Medical Necessity Statement*: change iv to oral abx and monitor for any worsening,additional iv lasix today awaiting 48 hrs of clear blood cx prior to discharge Coding Level of Care Code Acute Psychologist Experimental for Maia Alexander Diagnoses Cellulitis L03.90 Elevated troponin R77.8 Open wound of right foot S91.301A NSTEMI (non-ST elevated myocardial infarction) I21.4 Peripheral arterial disease I73.9 Osteomyelitis M86.9
[2020-09-19] MEDS: FUROsemide 10 mg/mL SDV 2mL 20 MG IVP (15:42)
[2020-09-19 16:53] LABS: Glucose Point of Care 192 mg/dL (70-110)
[2020-09-19] MEDS: amoxicillin-clav 875-125 mg Tablet 1 TAB PO (17:16)
[2020-09-19] MEDS: ciprofloxacin 500 mg Tablet PO (19:43)
[2020-09-19 20:04] LABS: Glucose Point of Care 179 mg/dL (70-110)
[2020-09-20] VITALS (7 sets, daily range): BP systolic 104–128; BP diastolic 50–57; PULSE 71–84; RESP 18–26; TEMP 36.4–37.2; O2SAT 75–97
--- NOTE | 2020-09-20 00:44 | PC.NURSE ---
Patient has no complaints at this time. Will monitor.
[2020-09-20] MEDS: lisinopril 5 mg Tablet PO (03:58)
[2020-09-20] MEDS: atorvastatin 40 mg Tablet 80 MG PO (03:58)
[2020-09-20] MEDS: clopidogrel 75 mg Tablet PO (03:58)
[2020-09-20 04:02] LABS: Basophils % 0.2 %; Eosinophils # 0.2 10^3/uL (0.0-0.8); Eosinophils % 1.1 %; Hematocrit 38.9 % (42.0-52.0); Hemoglobin 12.9 g/dL (11.7-16.6); Lymphocytes # 1.1 10^3/uL (0.8-4.8); Lymphocytes % 8.3 %; Mean Corpuscular HGB Conc 33.2 g/dL (30.0-36.0); Mean Corpuscular Hemoglobin 32.3 pg (28.0-34.0); Mean Corpuscular Volume 97.5 fL (80-94); Mean Platelet Volume 9.9 fL (7.4-10.4); Monocytes # 0.6 10^3/uL (0.2-0.9); Monocytes % 4.2 %; Neutrophils # 11.72 10^3/uL (1.8-7.7); Neutrophils % 85.6 %; Nucleated Red Blood Cells % 0 %; Platelet Count 297 10^3/cmm (130-400); Red Blood Count 3.99 10^6/uL (4.1-5.3); Red Cell Distribution Width 12.9 % (12.1-15.1); White Blood Count 13.7 10^3/uL (4.0-10.0)
[2020-09-20 04:23] LABS: Alanine Aminotransferase 17 U/L (0-41); Albumin Level 2.5 g/dL (3.5-5.2); Alkaline Phosphatase 79 IU/L (40-130); Aspartate Amino Transferase 18 U/L (0-40); Blood Urea Nitrogen 24 mg/dL (8-23); Calcium 8.2 mg/dL (8.5-10.5); Carbon Dioxide 27 mmol/L (22-29); Chloride 99 mmol/L (98-107); Globulin 3.6 g/dL (1.3-4.6); Glucose 192 mg/dL (65-115); Osmolality Calculated 287 mOsm/kg (285-295); Sodium 134 mmol/L (136-145); Total Bilirubin 0.4 mg/dL (0.15-1.2); Total Protein 6.1 g/dL (6.6-8.7)
--- NOTE | 2020-09-20 06:05 | PC.NURSE ---
Patient is refusing to have his blood sugar checked at this time. Patient states, no, let me sleep.
--- NOTE | 2020-09-20 07:46 | ECG_ITS ---
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 Measurements Intervals [place] Rate: 80 P: 59 NV: 208 QRS: 268 QRSD: 152 T: 16 QT: 427 QTc: 494 Interpretive Statements SINUS RHYTHM WITH OCCASIONAL VENTRICULAR PREMATURE COMPLEXES WITH OCCASIONAL SUPRAVENTRICULAR PREMATURE COMPLEXES POSSIBLE LEFT ATRIAL ENLARGEMENT [-0.1mV P WAVE IN V1/V2] MARKED RIGHT AXIS DEVIATION [QRS AXIS > 100] RIGHT BUNDLE BRANCH BLOCK ANTEROSEPTAL MYOCARDIAL INFARCTION [40+ ms Q WAVE IN V1-V4], OF INDETERMINATE AGE Compared to ECG 09/15/2020 22:27:52 Ventricular premature complex(es) now present Myocardial infarct finding still present Electronically Signed On 09-21-2020 17:40:38 CDT by Andie Portillo M.D. [id number]
[2020-09-20] MEDS: ciprofloxacin 500 mg Tablet PO (07:57)
[2020-09-20] MEDS: pantoprazole DR 40 mg Tablet PO (07:57)
[2020-09-20] MEDS: metoprolol succinate ER (24 HR) 25 mg Tablet 12.5 MG PO (07:57)
[2020-09-20] MEDS: apixaban 5 mg Tablet 10 MG PO (07:57)
[2020-09-20] MEDS: amoxicillin-clav 875-125 mg Tablet 1 TAB PO (07:58)
[2020-09-20] MEDS: FUROsemide 20 mg Tablet 40 MG PO (07:59)
--- NOTE | 2020-09-20 09:42 | PC.SOCIAL ---
*IMM UPDATE* Book Critic gave patient IMM update, provided him copy of page 2 of IMM. Verbalized understanding. 09/20/20 @ 0938. Initialed, dated, timed and placed in chart.
--- NOTE | 2020-09-20 11:34 | PM.DCS ---
Discharge Providers Date of Admission: 09/15/20 21:11 Date of Discharge: September 20, 2020 Attending Provider at Admission: Jaret Robert MD Attending Provider at Discharge: Sp Nieves MD Primary Care Provider: GISELA Bearden Diagnoses at Discharge Discharge Diagnosis (1) Cellulitis: Status: Acute (2) Open wound of right foot: Status: Acute (3) NSTEMI (non-ST elevated myocardial infarction): Status: Resolved (4) Peripheral arterial disease: Status: Chronic Reason for Visit Reason for Visit: CONFUSION, WEAKNESS, INCONTINENCE, PAIN Hospital Course Hospital Course 80 year old male who has history of hypertension, diabetes, peripheral arterial disease, heart failure with reduced action fraction 20% and today with chief complaint of generalized weakness confusion and decreased p.o. intake.He was admitted for the management of NSTEMI Type II.He was Continued on Plavix, lisinopril and Toprol, discontinue aspirin 81 as Eliquis has been added to the regimen for new Ac dvt of Right posterior tibial DVT ( Thrombus in the right lesser saphenous vein ). Repeat echo done during this hospital stay has shown left ventricular ejection fraction is estimated at 40 %. Global left ventricular hypokinesis, improved over previously reported LVEF of 20%. Grade I/IV diastolic dysfunction. He has been considered for ICD in the past, but given the recent improvement in his echo, currently not a candidate for ICD. CT angio chest was done pulmonary embolism was ruled out. He was also managed for gram-negative ying bacteremia.Source likely to be cellulitis and infected wound wound over the foot. Repeat blood culture was negative.Wound culture and blood culture has grown Morganella morganii, sensitive to Bactrim, he is being discharged on p.o. Bactrim DS daily for additional 14 days as well as Augmentin p.o. for the same duration.During the hospital stay was kept on broad-spectrum antibiotic, namely Vanco and Zosyn. 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 Elevated CRP and ESR x-ray without any evidence of osteomyelitis. Patient responded well to the medical management.He will continue to follow his primary care physician as well as his floor plan adjuster as outpatient. For his acute right lower extremity DVT: He is being discharged on Eliquis for 3 months. Physical Exam Narrative: EXAM NARRATIVE: GEN: Awake, alert and oriented, no acute distress CVS: S1S2 N RS: CTA B/L Abd: Soft, nt/nd , bs+ CORN PICKER: no focal neuro deficits EXT: Right foot with unhanged ulcer at base with some discharge, currently with dressing in place Discharge Data Data Completed and Pending: Completed Studies During Hospitalization Category Date Time Status CT abdomen pelvis wo con [id number] Rout ine Cat Scan 09/18/20 13:[address] angio chest PE protcl [id number] Stat Cat Scan 09/15/20 18:[address] head wo con* 7 0450 Urgent Cat Scan 09/15/20 14:32 Completed XR chest 1V rain ble 36091 Urgent Exams 09/15/20 14:32 Completed XR foot RT 2V 736 20 Stat Exams 09/15/20 15:55 Completed CV echo complete* [id number] Routine Ultrasound 09/16/20 00:02 [place] [id number] Routin e Ultrasound 09/16/20 00:06 Completed Pending at discharge Category Date Time Status Blood Culture AM LABS Lab 09/18/20 03:06 Results Blood Culture Sta t Lab 09/15/20 19:38 Results Wound Culture and Gram Stain Routin e Lab 09/17/20 19:00 Results Labs from last 24 hours 09/20/20 09/20/20 09/19/20 03:45 03:45 19:57 WBC 13.7 H RBC 3.99 L Hgb 12.9 Hct 38.9 L MCV 97.5 H MCH 32.3 MCHC 33.2 RDW 12.9 Plt Count 297 MPV 9.9 Neut % (Auto) 85.6 Lymph % (Auto) 8.3 [place] % (Auto) 4.2 Eos % (Auto) 1.1 Baso % (Auto) 0.2 Neut # (Auto) 11.72 H Lymph # (Auto) 1.1 [place] # (Auto) 0.6 Eos # (Auto) 0.2 Baso # (Auto) 0.0 Nucleated RBC % (a uto) 0 Nucleated RBCs # 0.0 Sodium 134 L Potassium 4.0 Chloride 99 Carbon Dioxide 27 Anion Gap 12.0 BUN 24 H Creatinine 0.9 GFR Calculation Not Reportable Glucose 192 H POC Glucose 179 H Calculated Osmolal ity 287 Calcium 8.2 L Total Bilirubin 0.4 AST 18 ALT 17 Alkaline Phosphata se 79 Total Protein 6.1 L Albumin 2.5 L Globulin 3.6 09/19/20 09/19/20 15:35 11:19 WBC RBC Hgb Hct MCV MCH MCHC RDW Plt Count MPV Neut % (Auto) Lymph % (Auto) [place] % (Auto) Eos % (Auto) Baso % (Auto) Neut # (Auto) Lymph # (Auto) [place] # (Auto) Eos # (Auto) Baso # (Auto) Nucleated RBC % (a uto) Nucleated RBCs # Sodium Potassium Chloride Carbon Dioxide Anion Gap BUN Creatinine GFR Calculation Glucose POC Glucose 192 H 213 H Calculated Osmolal ity Calcium Total Bilirubin AST ALT Alkaline Phosphata se Total Protein Albumin Globulin Vitals: Last Vital Signs Temp 99.0 F 09/20/20 03:57 Pulse 84 09/20/20 07:55 Resp 26 H 09/20/20 07:55 BP 118/57 09/20/20 07:55 Pulse Ox 97 09/20/20 07:55 Discharge Plan Discharge Patient Disposition: Home Condition: Stable Prescriptions: New Eliquis 5 mg Tablet 10 mg PO BID@0900,2100 30 Days Qty: 8 RF: 3 Klor-Con 20 mEq packet 20 meq PO DAILY Qty: 30 RF: 0 Bactrim DS 800-160 mg tablet 1 tab PO DAILY 14 Days RF: 0 Augmentin 500-125 mg tablet 1 tab PO DAILY Qty: 14 RF: 0 Continued clopidogrel 75 mg tablet 75 mg PO QAM RF: 0 metformin 500 mg tablet 500 mg PO QAM RF: 0 glimepiride 4 mg tablet 2 mg PO QAM RF: 0 metoprolol tartrate 25 mg tablet 25 mg PO QAM RF: 0 Glucosamine 1 tab PO PRN RF: 0 atorvastatin 40 mg tablet 40 mg PO QAM RF: 0 lisinopril 5 mg tablet 5 mg PO QAM RF: 0 Changed furosemide 20 mg tablet 40 mg PO QAM Qty: 30 RF: 3 Discharge Orders: Discharge Order (Routine); Ordered 09/20/20 Ordered By: Sp Nieves Referrals: Romy Salvador [Referring] - (Please follow-up with Romy Salvador on September 24 at 11:00A.M. If you have any questions or need to reschedule. Please call Please arrive 15 minutes prior to appointment for check-in and remember your face mask.) Andie Portillo MD [Physician] - 1 week (Please follow-up with Dr. Portillo on September 29 at 10:00A.M. If you have any questions or need to reschedule. Please call ) Kristine Okeefe FNP [Primary Care Provider] - Discharge Diet: Diabetic Discharge Activity: Resume usual activity Patient Instructions: Sulfamethoxazole/Trimethoprim (By mouth), Potassium Chloride (By mouth), Amoxicillin/Clavulanate Potassium (By mouth), Apixaban (By mouth), Myocardial Infarction (DC), Cellulitis (DC), Deep Venous Thrombosis (DC), Diabetic Foot Care (GEN), Diabetes Mellitus Type 2 in Adults (DC), Sepsis (DC), Chronic Wound Care (DC), Opioid Safety, Post Heart Attack Stoplight Activity Restrictions/Additional Instructions: Eliquis 10 MG PO BID Till 09/24/2020 and then 5 MG Q12 H BID FOR 3 Months. Discharge Attestations Time Spent in Discharge Care*: less than 30 min Specific Discharge Activities: educating patient, educating and/or supporting family/caregiver, discussing with pcp/other providers, discussing with senior case manager/social workers/dc planners, documenting/other paperwork and evaluating patient/reviewing data Status at Discharge: Cognitive status at discharge: cognitively intact, Behavioral status at discharge: cooperative, Overall status at discharge: patient is back to baseline Quality Metrics Clinical Quality Measures During this hospital stay, did patient experience: None Coding Level of Care Code Acute Chg FW DC note Diagnoses Cellulitis L03.90 Open wound of right foot S91.301A NSTEMI (non-ST elevated myocardial infarction) I21.4 Peripheral arterial disease I73.9
[2020-09-20 11:38] LABS: Glucose Point of Care 275 mg/dL (70-110)
--- NOTE | 2020-09-20 15:54 | PC.NURSE ---
prescriptions provided by [facility]..meds to beds program.discharge instruction given and explained.pt verb understanding of instructions.discharged via w/c to exit.son to drive pt home
== END 2020-09-20 15:45 | disposition home or self-care (01) | DRG 871 ==
LOC: ER 15:33 → CSU 22:19
PROVIDERS: Physician Assistant; Student in an Organized Health Care Education/Training Program; Admitting Provider Internal Medicine; Emergency Provider Family Medicine; PCP Registered Nurse; Visit Provider Internal Medicine
DX: A41.9 Sepsis, unspecified organism (principal); I50.23 Acute on chronic systolic (congestive) heart failure; I21.A1 Myocardial infarction type 2; E87.1 Hypo-osmolality and hyponatremia; L03.115 Cellulitis of right lower limb; I82.441 Acute embolism and thrombosis of right tibial vein; I82.491 Acute embolism and thrombosis of other specified deep vein of right lower extremity; I11.0 Hypertensive heart disease with heart failure; E11.51 Type 2 diabetes mellitus with diabetic peripheral angiopathy without gangrene; Z95.820 Peripheral vascular angioplasty status with implants and grafts; S91.301A Unspecified open wound, right foot, initial encounter; X58.XXXA Exposure to other specified factors, initial encounter; I25.10 Atherosclerotic heart disease of native coronary artery without angina pectoris; Z95.1 Presence of aortocoronary bypass graft; Z87.891 Personal history of nicotine dependence; F10.10 Alcohol abuse, uncomplicated; R59.0 Localized enlarged lymph nodes; Z79.02 Long term (current) use of antithrombotics/antiplatelets; Z79.84 Long term (current) use of oral hypoglycemic drugs
CPT/HCPCS: 36415; 36416; 70450; 71045; 71275; 73620; 74176; 80048; 80053; 80202; 81001; 82962; 83605; 83880; 84484; 85025; 85378; 85651; 86140; 87040; 87070; 87075; 87077; 87186; 87205; 87426; 93005; 93306; 93971; 96365; 96367; 96372; 96375; 97162; 97530; 99285; J1650; J1815; J1940; J2543; J3370; J7050; Q9967

== ENCOUNTER 2020-12-20 20:40 | Inpatient (IN) | payer MEDICARE, SELFPAY ==
[2020-12-20 20:51] VITALS: BP 138/84; PULSE 104; RESP 22; TEMP 37.9; O2SAT 94; BMI 19.0
--- NOTE | 2020-12-20 21:01 | ED_ITS ---
Documented by User: Marcos Saldivar MD 12/21/20 20:08 HPI - Fever General: Chief Complaint: Fever Stated Complaint: FEVER/LETHARGY Time Seen by Provider: 12/20/20 20:50 History of Present Illness: HPI Narrative: Mr. Whitt is a 73-year-old gentleman with complex past medical history including multiple poor healing diabetic wounds, arterial and venous insufficiency, diabetes, CAD who presents to the emergency department for somewhat unclear reasons. He endorses feeling generally ill for 5 or 6 days. He endorses fevers, chills, but no other specific sources of infection. Patient is a poor historian and appears mildly confused which limits history. Reportedly he follows with wound clinic and has known chronic wounds especially at the postoperative site from the right transmetatarsal amputation. He reports that he has help with his medications. Overall the course of symptoms has been worsening. The intensity is moderate to severe. There are no other specific identified infectious etiologies. No other specific provoking, exacerbating, or alleviating factors. The patient does report that he is possibly on antibiotics at this time. Review of Systems General: Reports: 10 or more systems reviewed and unremarkable except in HPI and below Narrative: CONSTITUTIONAL: Positive for fever, fatigue, weakness EYES - denies pain, denies loss of vision EARS - denies ear issues. NOSE - denies congestion or rhinorrhea. THROAT - denies sore throat or difficulty swallowing. CARDIOVASCULAR - denies chest pain and palpitations RESPIRATORY - denies shortness of breath and cough GASTROINTESTINAL - denies abdominal pain, no nausea vomiting, no changes in bowel habits GENITOURINARY - denies dysuria or urinary frequency MUSCULOSKELETAL- denies deformity or pain SKIN -chronic wounds and drainage. NEUROLOGIC - denies focal weakness or sensory changes HEMATOLOGIC/LYMPHATIC - denies easy bruising or lymphadenopathy. [facility] ED PFSH: Medical History (Updated 12/27/20 @ 00:01 by ) CAD (coronary artery disease) Cellulitis CHF (congestive heart failure) Echocardiogram the 2020 showed an EF of 40% with grade 1 diastolic dysfunction, aortic sclerosis Chronic osteomyelitis of right foot Chronic venous insufficiency of lower extremity CKD (chronic kidney disease) Diabetes Diabetic foot ulcer Diabetic peripheral neuropathy associated with type 2 diabetes mellitus DVT (deep venous thrombosis) Right posterior tibial September 2020 Elevated troponin Heart failure with reduced ejection fraction Severely reduced ejection fraction 20% Hypertension Non-pressure chronic ulcer of left ankle with fat layer exposed NSTEMI (non-ST elevated myocardial infarction) Open wound of right foot Osteomyelitis PAD (peripheral artery disease) Peripheral arterial disease Syncope Due to hypoglycemia Surgical History 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 No acute distress. Overall patient is poorly kept and appears dirty Eyes - PERRL, no conjunctival injection ENMT - Atraumatic external nose and ears. Moist mucous membranes NECK - supple. trachea midline CARDIOVASCULAR - tachycardia. Regular rhythm. RESPIRATORY - tachypnea and coarse breath sounds throughout.. No retractions or accessory muscle use. ABDOMEN/GI - Nontender/Nondistended. No tenderness to percussion or evidence of peritonitis MSK - discolorations consistent with chronic vascular changes. The right transmetatarsal amputation site has purulent drainage upon undressing. SKIN - pale, cool, Dry NEURO - alert and appropriately oriented. Baseline neuropathy. Moves all extremities equally. PSYCH - appropriate affect and mood Course ED course: - Patient was seen and evaluated by me at bedside - Patient placed on cardiac monitors, IV access obtained - Initial evaluation notable for ill appearance, patient is poor historian versus confused, he appears to have positive SIRS criteria and purulent discharge as noted above though he also has coarse breath sounds with likely multiple possible etiology of infection. Overall he is poorly cared for and unkempt. -Fluids and antibiotics given - Labs notable for no leukocytosis, no significant metabolic abnormalities to explain patient's symptoms. - Imaging notable for no evidence of intracranial hemorrhage or mass. Possible progression of bony destruction. - Upon serial reexamination after treatment the patient was mildly improved with fluid resuscitation - Based on patient history, evaluation, labs, and imaging as interpreted the most likely cause of the patient's condition is sepsis with unclear source though may be secondary to osteomyelitis -Patient care handed off to overnight physician Dr. Dodge pending admission once labs completed. Vital Signs: Vital signs: Vital Signs Temperature 98.5 F 12/26/20 18:33 Pulse Rate 72 12/26/20 18:33 Respiratory Rate 16 12/26/20 18:33 Blood Pressure 146/69 12/26/20 18:33 Pulse Oximetry 96 12/26/20 18:33 MDM - Fever Medical Records: Attestation: I reviewed the patient's medical records. Lab Data: Attestation: I reviewed the patient's lab results. Labs: Lab Results 12/20/20 12/20/20 12/20/20 Range/Units 22:00 22:00 22:00 WBC 6.0 (4.0-10.0) 10^3/ uL RBC 4.14 (4.1-5.3) 10^6/u L Hgb 13.2 (11.7-16.6) g/dL Hct 40.0 L (42.0-52.0) % MCV 96.6 H (80-94) fL MCH 31.9 (28.0-34.0) pg MCHC 33.0 (30.0-36.0) g/dL RDW 14.2 (12.1-15.1) % Plt Count 199 (130-400) 10^3/c mm MPV 11.4 H (7.4-10.4) fL Neut % (Auto) 86.8 % Lymph % (Auto) 8.7 % [place] % (Auto) 4.0 % Eos % (Auto) 0.0 % Baso % (Auto) 0.0 % Neut # (Auto) 5.16 (1.8-7.7) 10^3/u L Lymph # (Auto) 0.5 L (0.8-4.8) 10^3/u L [place] # (Auto) 0.2 (0.2-0.9) 10^3/u L Eos # (Auto) 0.0 (0.0-0.8) 10^3/u L Baso # (Auto) 0.0 (0.0-0.1) 10^3/u L Nucleated RBC % (a uto) 0 % Nucleated RBCs # 0.0 /100WBC Poikilocytosis 1+ H Anisocytosis 1+ H Ovalocytes 1+ H [place] Cells 1+ H Acanthocytes (Spur ) Trace ESR (0-10) mm/hr Sodium 137 (136-145) mmol/L Potassium 4.0 (3.5-5.1) mmol/L Chloride 99 (98-107) mmol/L Carbon Dioxide 22 (22-29) mmol/L Anion Gap 20.0 H (5-19) BUN 34 H (8-23) mg/dL Creatinine 0.9 (0.7-1.2) mg/dL GFR Calculation Not Reportable Glucose 119 H (65-115) mg/dL Calculated Osmolal ity 293 (285-295) mOsm/k g Lactic Acid 2.0 (0.5-2.2) mmol/L Calcium 8.6 (8.5-10.5) mg/dL Total Bilirubin 0.6 (0.15-1.2) mg/dL AST 76 H (0-40) U/L ALT 18 (0-41) U/L Alkaline Phosphata se 80 (40-130) IU/L Troponin T Baselin e (0-15) ng/L Troponin T 120 [place] (0-15) ng/L Delta Troponin T (0-10) ABS# C-Reactive Protein 19.2 H (0.0-4.9) mg/L Total Protein 6.4 L (6.6-8.7) g/dL Albumin 3.4 L (3.5-5.2) g/dL Globulin 3.0 (1.3-4.6) g/dL Procalcitonin 0.06 (0-0.5) ng/mL Urine Color (Yellow) Urine Appearance (CLEAR) Urine pH (5-7) Ur Specific Gravit y (1.005-1.030) Urine Protein (Negative) Urine Glucose (UA) (Normal) Urine Ketones (Negative) Urine Blood (Negative) Urine Nitrate (Negative) Urine Bilirubin (Negative) Urine Urobilinogen (Negative) mg/dL Ur Leukocyte Alethea ase (Negative) Urine RBC (0-2) /hpf Urine WBC (0-5) /hpf Ur Squamous Epith Cells (0-5) /hpf Amorphous Sediment /hpf Urine Bacteria (NONE) /hpf SARS-CoV-2 Ag (Rap id) (Negative) 12/20/20 12/20/20 12/21/20 Range/Units 22:00 22:00 00:30 WBC (4.0-10.0) 10^3/ uL RBC (4.1-5.3) 10^6/u L Hgb (11.7-16.6) g/dL Hct (42.0-52.0) % MCV (80-94) fL MCH (28.0-34.0) pg MCHC (30.0-36.0) g/dL RDW (12.1-15.1) % Plt Count (130-400) 10^3/c mm MPV (7.4-10.4) fL Neut % (Auto) % Lymph % (Auto) % [place] % (Auto) % Eos % (Auto) % Baso % (Auto) % Neut # (Auto) (1.8-7.7) 10^3/u L Lymph # (Auto) (0.8-4.8) 10^3/u L [place] # (Auto) (0.2-0.9) 10^3/u L Eos # (Auto) (0.0-0.8) 10^3/u L Baso # (Auto) (0.0-0.1) 10^3/u L Nucleated RBC % (a uto) % Nucleated RBCs # /100WBC Poikilocytosis Anisocytosis Ovalocytes Chavez Cells Acanthocytes (Spur ) ESR 41 H (0-10) mm/hr Sodium (136-145) mmol/L Potassium (3.5-5.1) mmol/L Chloride (98-107) mmol/L Carbon Dioxide (22-29) mmol/L Anion Gap (5-19) BUN (8-23) mg/dL Creatinine (0.7-1.2) mg/dL GFR Calculation Glucose (65-115) mg/dL Calculated Osmolal ity (285-295) mOsm/k g Lactic Acid (0.5-2.2) mmol/L Calcium (8.5-10.5) mg/dL Total Bilirubin (0.15-1.2) mg/dL AST (0-40) U/L ALT (0-41) U/L Alkaline Phosphata se (40-130) IU/L Troponin T Baselin e 34 H (0-15) ng/L Troponin T 120 [place] (0-15) ng/L Delta Troponin T (0-10) ABS# C-Reactive Protein (0.0-4.9) mg/L Total Protein (6.6-8.7) g/dL Albumin (3.5-5.2) g/dL Globulin (1.3-4.6) g/dL Procalcitonin (0-0.5) ng/mL Urine Color (Yellow) Urine Appearance (CLEAR) Urine pH (5-7) Ur Specific Gravit y (1.005-1.030) Urine Protein (Negative) Urine Glucose (UA) (Normal) Urine Ketones (Negative) Urine Blood (Negative) Urine Nitrate (Negative) Urine Bilirubin (Negative) Urine Urobilinogen (Negative) mg/dL Ur Leukocyte Alethea ase (Negative) Urine RBC (0-2) /hpf Urine WBC (0-5) /hpf Ur Squamous Epith Cells (0-5) /hpf Amorphous Sediment /hpf Urine Bacteria (NONE) /hpf SARS-CoV-2 Ag (Rap id) Positive H (Negative) 12/21/20 12/21/20 Range/Units 00:30 00:50 WBC (4.0-10.0) 10^3/ uL RBC (4.1-5.3) 10^6/u L Hgb (11.7-16.6) g/dL Hct (42.0-52.0) % MCV (80-94) fL MCH (28.0-34.0) pg MCHC (30.0-36.0) g/dL RDW (12.1-15.1) % Plt Count (130-400) 10^3/c mm MPV (7.4-10.4) fL Neut % (Auto) % Lymph % (Auto) % [place] % (Auto) % Eos % (Auto) % Baso % (Auto) % Neut # (Auto) (1.8-7.7) 10^3/u L Lymph # (Auto) (0.8-4.8) 10^3/u L [place] # (Auto) (0.2-0.9) 10^3/u L Eos # (Auto) (0.0-0.8) 10^3/u L Baso # (Auto) (0.0-0.1) 10^3/u L Nucleated RBC % (a uto) % Nucleated RBCs # /100WBC Poikilocytosis Anisocytosis Ovalocytes Chavez Cells Acanthocytes (Spur ) ESR (0-10) mm/hr Sodium (136-145) mmol/L Potassium (3.5-5.1) mmol/L Chloride (98-107) mmol/L Carbon Dioxide (22-29) mmol/L Anion Gap (5-19) BUN (8-23) mg/dL Creatinine (0.7-1.2) mg/dL GFR Calculation Glucose (65-115) mg/dL Calculated Osmolal ity (285-295) mOsm/k g Lactic Acid (0.5-2.2) mmol/L Calcium (8.5-10.5) mg/dL Total Bilirubin (0.15-1.2) mg/dL AST (0-40) U/L ALT (0-41) U/L Alkaline Phosphata se (40-130) IU/L Troponin T Baselin e (0-15) ng/L Troponin T 120 [place] 31.45 H (0-15) ng/L Delta Troponin T -2.55 L (0-10) ABS# C-Reactive Protein (0.0-4.9) mg/L Total Protein (6.6-8.7) g/dL Albumin (3.5-5.2) g/dL Globulin (1.3-4.6) g/dL Procalcitonin (0-0.5) ng/mL Urine Color Yellow (Yellow) Urine Appearance Clear (CLEAR) Urine pH 5 (5-7) Ur Specific Gravit y 1.015 (1.005-1.030) Urine Protein 1+ H (Negative) Urine Glucose (UA) Norm (Normal) Urine Ketones Negative (Negative) Urine Blood 3+ H (Negative) Urine Nitrate Negative (Negative) Urine Bilirubin Neg (Negative) Urine Urobilinogen Norm (Negative) mg/dL Ur Leukocyte Alethea ase Negative (Negative) Urine RBC 0-4 H (0-2) /hpf Urine WBC 0-4 H (0-5) /hpf Ur Squamous Epith Cells 0-4 H (0-5) /hpf Amorphous Sediment 4+ /hpf Urine Bacteria Trace (NONE) /hpf SARS-CoV-2 Ag (Rap id) (Negative) Discharge Plan Discharge Patient Disposition: Admitted As Inpatient Admit Provider: Kanika Chase Clinical Impression: Chronic osteomyelitis of right foot, Altered mental status, COVID-19 Condition: Stable Discharge Diet: As Directed Discharge Activity: Resume usual activity and Increase activity as tolerated Sign Out Sign Out Data: Patient Sign Out occurred on 12/21/20 at 06:24. Patient's care was discussed, and care was transferred from to Tommy Christiansen DO. Coding Level of Care Code ED Meat Inspector for Chg Fwd Documented by User: Domenica Dodge MD 12/21/20 03:41 HPI - Fever General: Chief Complaint: Fever Stated Complaint: FEVER/LETHARGY Time Seen by Provider: 12/20/20 20:50 PFSH ED PFSH: Medical History (Updated 12/27/20 @ 00:01 by ) CAD (coronary artery disease) Cellulitis CHF (congestive heart failure) Echocardiogram the 2020 showed an EF of 40% with grade 1 diastolic dysfunction, aortic sclerosis Chronic osteomyelitis of right foot Chronic venous insufficiency of lower extremity CKD (chronic kidney disease) Diabetes Diabetic foot ulcer Diabetic peripheral neuropathy associated with type 2 diabetes mellitus DVT (deep venous thrombosis) Right posterior tibial September 2020 Elevated troponin Heart failure with reduced ejection fraction Severely reduced ejection fraction 20% Hypertension Non-pressure chronic ulcer of left ankle with fat layer exposed NSTEMI (non-ST elevated myocardial infarction) Open wound of right foot Osteomyelitis PAD (peripheral artery disease) Peripheral arterial disease Syncope Due to hypoglycemia Surgical History 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) S/P peripheral artery angioplasty with stent placement Family History Denies family history of Hyperlipidemia Lung disease Hypertension Social History Smoking and tobacco status: former smoker Alcohol intake: current Alcohol intake frequency: 3 or more drinks per day Alcohol type: beer Housing: Other Details: Lives alone Course Vital Signs: Vital signs: Vital Signs Temperature 98.5 F 12/26/20 18:33 Pulse Rate 72 12/26/20 18:33 Respiratory Rate 16 12/26/20 18:33 Blood Pressure 146/69 12/26/20 18:33 Pulse Oximetry 96 12/26/20 18:33 MDM - Fever MDM Narrative: Medical decision making narrative: I took patient over from Dr. Saldivar patient presents here with fever along with altered mental status. Patient has chronic osteomyelitis to his right foot with some worsening signs and patient was given Vanco and Zosyn. Patient is also Covid positive likely causing his fever and confusion. I spoke to the hospitalist who will admit. Lab Data: Labs: Lab Results 12/20/20 12/20/20 12/20/20 Range/Units 22:00 22:00 22:00 WBC 6.0 (4.0-10.0) 10^3/ uL RBC 4.14 (4.1-5.3) 10^6/u L Hgb 13.2 (11.7-16.6) g/dL Hct 40.0 L (42.0-52.0) % MCV 96.6 H (80-94) fL MCH 31.9 (28.0-34.0) pg MCHC 33.0 (30.0-36.0) g/dL RDW 14.2 (12.1-15.1) % Plt Count 199 (130-400) 10^3/c mm MPV 11.4 H (7.4-10.4) fL Neut % (Auto) 86.8 % Lymph % (Auto) 8.7 % [place] % (Auto) 4.0 % Eos % (Auto) 0.0 % Baso % (Auto) 0.0 % Neut # (Auto) 5.16 (1.8-7.7) 10^3/u L Lymph # (Auto) 0.5 L (0.8-4.8) 10^3/u L [place] # (Auto) 0.2 (0.2-0.9) 10^3/u L Eos # (Auto) 0.0 (0.0-0.8) 10^3/u L Baso # (Auto) 0.0 (0.0-0.1) 10^3/u L Nucleated RBC % (a uto) 0 % Nucleated RBCs # 0.0 /100WBC Poikilocytosis 1+ H Anisocytosis 1+ H Ovalocytes 1+ H Chavez Cells 1+ H Acanthocytes (Spur ) Trace ESR (0-10) mm/hr Sodium 137 (136-145) mmol/L Potassium 4.0 (3.5-5.1) mmol/L Chloride 99 (98-107) mmol/L Carbon Dioxide 22 (22-29) mmol/L Anion Gap 20.0 H (5-19) BUN 34 H (8-23) mg/dL Creatinine 0.9 (0.7-1.2) mg/dL GFR Calculation Not Reportable Glucose 119 H (65-115) mg/dL Calculated Osmolal ity 293 (285-295) mOsm/k g Lactic Acid 2.0 (0.5-2.2) mmol/L Calcium 8.6 (8.5-10.5) mg/dL Total Bilirubin 0.6 (0.15-1.2) mg/dL AST 76 H (0-40) U/L ALT 18 (0-41) U/L Alkaline Phosphata se 80 (40-130) IU/L Troponin T Baselin e (0-15) ng/L Troponin T 120 [place] (0-15) ng/L Delta Troponin T (0-10) ABS# C-Reactive Protein 19.2 H (0.0-4.9) mg/L Total Protein 6.4 L (6.6-8.7) g/dL Albumin 3.4 L (3.5-5.2) g/dL Globulin 3.0 (1.3-4.6) g/dL Procalcitonin 0.06 (0-0.5) ng/mL Urine Color (Yellow) Urine Appearance (CLEAR) Urine pH (5-7) Ur Specific Gravit y (1.005-1.030) Urine Protein (Negative) Urine Glucose (UA) (Normal) Urine Ketones (Negative) Urine Blood (Negative) Urine Nitrate (Negative) Urine Bilirubin (Negative) Urine Urobilinogen (Negative) mg/dL Ur Leukocyte Alethea ase (Negative) Urine RBC (0-2) /hpf Urine WBC (0-5) /hpf Ur Squamous Epith Cells (0-5) /hpf Amorphous Sediment /hpf Urine Bacteria (NONE) /hpf SARS-CoV-2 Ag (Rap id) (Negative) 12/20/20 12/20/20 12/21/20 Range/Units 22:00 22:00 00:30 WBC (4.0-10.0) 10^3/ uL RBC (4.1-5.3) 10^6/u L Hgb (11.7-16.6) g/dL Hct (42.0-52.0) % MCV (80-94) fL MCH (28.0-34.0) pg MCHC (30.0-36.0) g/dL RDW (12.1-15.1) % Plt Count (130-400) 10^3/c mm MPV (7.4-10.4) fL Neut % (Auto) % Lymph % (Auto) % [place] % (Auto) % Eos % (Auto) % Baso % (Auto) % Neut # (Auto) (1.8-7.7) 10^3/u L Lymph # (Auto) (0.8-4.8) 10^3/u L [place] # (Auto) (0.2-0.9) 10^3/u L Eos # (Auto) (0.0-0.8) 10^3/u L Baso # (Auto) (0.0-0.1) 10^3/u L Nucleated RBC % (a uto) % Nucleated RBCs # /100WBC Poikilocytosis Anisocytosis Ovalocytes [place] Cells Acanthocytes (Spur ) ESR 41 H (0-10) mm/hr Sodium (136-145) mmol/L Potassium (3.5-5.1) mmol/L Chloride (98-107) mmol/L Carbon Dioxide (22-29) mmol/L Anion Gap (5-19) BUN (8-23) mg/dL Creatinine (0.7-1.2) mg/dL GFR Calculation Glucose (65-115) mg/dL Calculated Osmolal ity (285-295) mOsm/k g Lactic Acid (0.5-2.2) mmol/L Calcium (8.5-10.5) mg/dL Total Bilirubin (0.15-1.2) mg/dL AST (0-40) U/L ALT (0-41) U/L Alkaline Phosphata se (40-130) IU/L Troponin T Baselin e 34 H (0-15) ng/L Troponin T 120 [place] (0-15) ng/L Delta Troponin T (0-10) ABS# C-Reactive Protein (0.0-4.9) mg/L Total Protein (6.6-8.7) g/dL Albumin (3.5-5.2) g/dL Globulin (1.3-4.6) g/dL Procalcitonin (0-0.5) ng/mL Urine Color (Yellow) Urine Appearance (CLEAR) Urine pH (5-7) Ur Specific Gravit y (1.005-1.030) Urine Protein (Negative) Urine Glucose (UA) (Normal) Urine Ketones (Negative) Urine Blood (Negative) Urine Nitrate (Negative) Urine Bilirubin (Negative) Urine Urobilinogen (Negative) mg/dL Ur Leukocyte Alethea ase (Negative) Urine RBC (0-2) /hpf Urine WBC (0-5) /hpf Ur Squamous Epith Cells (0-5) /hpf Amorphous Sediment /hpf Urine Bacteria (NONE) /hpf SARS-CoV-2 Ag (Rap id) Positive H (Negative) 12/21/20 12/21/20 Range/Units 00:30 00:50 WBC (4.0-10.0) 10^3/ uL RBC (4.1-5.3) 10^6/u L Hgb (11.7-16.6) g/dL Hct (42.0-52.0) % MCV (80-94) fL MCH (28.0-34.0) pg MCHC (30.0-36.0) g/dL RDW (12.1-15.1) % Plt Count (130-400) 10^3/c mm MPV (7.4-10.4) fL Neut % (Auto) % Lymph % (Auto) % [place] % (Auto) % Eos % (Auto) % Baso % (Auto) % Neut # (Auto) (1.8-7.7) 10^3/u L Lymph # (Auto) (0.8-4.8) 10^3/u L [place] # (Auto) (0.2-0.9) 10^3/u L Eos # (Auto) (0.0-0.8) 10^3/u L Baso # (Auto) (0.0-0.1) 10^3/u L Nucleated RBC % (a uto) % Nucleated RBCs # /100WBC Poikilocytosis Anisocytosis Ovalocytes Chavez Cells Acanthocytes (Spur ) ESR (0-10) mm/hr Sodium (136-145) mmol/L Potassium (3.5-5.1) mmol/L Chloride (98-107) mmol/L Carbon Dioxide (22-29) mmol/L Anion Gap (5-19) BUN (8-23) mg/dL Creatinine (0.7-1.2) mg/dL GFR Calculation Glucose (65-115) mg/dL Calculated Osmolal ity (285-295) mOsm/k g Lactic Acid (0.5-2.2) mmol/L Calcium (8.5-10.5) mg/dL Total Bilirubin (0.15-1.2) mg/dL AST (0-40) U/L ALT (0-41) U/L Alkaline Phosphata se (40-130) IU/L Troponin T Baselin e (0-15) ng/L Troponin T 120 [place] 31.45 H (0-15) ng/L Delta Troponin T -2.55 L (0-10) ABS# C-Reactive Protein (0.0-4.9) mg/L Total Protein (6.6-8.7) g/dL Albumin (3.5-5.2) g/dL Globulin (1.3-4.6) g/dL Procalcitonin (0-0.5) ng/mL Urine Color Yellow (Yellow) Urine Appearance Clear (CLEAR) Urine pH 5 (5-7) Ur Specific Gravit y 1.015 (1.005-1.030) Urine Protein 1+ H (Negative) Urine Glucose (UA) Norm (Normal) Urine Ketones Negative (Negative) Urine Blood 3+ H (Negative) Urine Nitrate Negative (Negative) Urine Bilirubin Neg (Negative) Urine Urobilinogen Norm (Negative) mg/dL Ur Leukocyte Alethea ase Negative (Negative) Urine RBC 0-4 H (0-2) /hpf Urine WBC 0-4 H (0-5) /hpf Ur Squamous Epith Cells 0-4 H (0-5) /hpf Amorphous Sediment 4+ /hpf Urine Bacteria Trace (NONE) /hpf SARS-CoV-2 Ag (Rap id) (Negative) Discharge Plan Discharge Patient Disposition: Admitted As Inpatient Admit Provider: Kanika Chase Clinical Impression: Chronic osteomyelitis of right foot, Altered mental status, COVID-19 Condition: Stable Discharge Diet: As Directed Discharge Activity: Resume usual activity and Increase activity as tolerated Sign Out Sign Out Data: Patient Sign Out occurred on 12/21/20 at 06:24. Patient's care was discussed, and care was transferred from to Tommy Christiansen DO. Coding Level of Care Code ED Meat Inspector for Chg Fwd Documented by User: Tommy Christiansen DO 12/27/20 16:35 HPI - Fever General: Chief Complaint: Fever Stated Complaint: FEVER/LETHARGY Time Seen by Provider: 12/20/20 20:50 PFSH ED PFSH: Medical History (Updated 12/27/20 @ 00:01 by ) CAD (coronary artery disease) Cellulitis CHF (congestive heart failure) Echocardiogram the 2020 showed an EF of 40% with grade 1 diastolic dysfunction, aortic sclerosis Chronic osteomyelitis of right foot Chronic venous insufficiency of lower extremity CKD (chronic kidney disease) Diabetes Diabetic foot ulcer Diabetic peripheral neuropathy associated with type 2 diabetes mellitus DVT (deep venous thrombosis) Right posterior tibial September 2020 Elevated troponin Heart failure with reduced ejection fraction Severely reduced ejection fraction 20% Hypertension Non-pressure chronic ulcer of left ankle with fat layer exposed NSTEMI (non-ST elevated myocardial infarction) Open wound of right foot Osteomyelitis PAD (peripheral artery disease) Peripheral arterial disease Syncope Due to hypoglycemia Surgical History 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) S/P peripheral artery angioplasty with stent placement Family History Denies family history of Hyperlipidemia Lung disease Hypertension Social History Smoking and tobacco status: former smoker Alcohol intake: current Alcohol intake frequency: 3 or more drinks per day Alcohol type: beer Housing: Other Details: Lives alone Course Vital Signs: Vital signs: Vital Signs Temperature 98.5 F 12/26/20 18:33 Pulse Rate 72 12/26/20 18:33 Respiratory Rate 16 12/26/20 18:33 Blood Pressure 146/69 12/26/20 18:33 Pulse Oximetry 96 12/26/20 18:33 MDM - Fever MDM Narrative: Medical decision making narrative: Patient monitored in the emergency room ultimately we are able to get a bed for him and he was admitted via the hospitalist notes. Lab Data: Labs: Lab Results 12/20/20 12/20/20 12/20/20 Range/Units 22:00 22:00 22:00 WBC 6.0 (4.0-10.0) 10^3/ uL RBC 4.14 (4.1-5.3) 10^6/u L Hgb 13.2 (11.7-16.6) g/dL Hct 40.0 L (42.0-52.0) % MCV 96.6 H (80-94) fL MCH 31.9 (28.0-34.0) pg MCHC 33.0 (30.0-36.0) g/dL RDW 14.2 (12.1-15.1) % Plt Count 199 (130-400) 10^3/c mm MPV 11.4 H (7.4-10.4) fL Neut % (Auto) 86.8 % Lymph % (Auto) 8.7 % [place] % (Auto) 4.0 % Eos % (Auto) 0.0 % Baso % (Auto) 0.0 % Neut # (Auto) 5.16 (1.8-7.7) 10^3/u L Lymph # (Auto) 0.5 L (0.8-4.8) 10^3/u L [place] # (Auto) 0.2 (0.2-0.9) 10^3/u L Eos # (Auto) 0.0 (0.0-0.8) 10^3/u L Baso # (Auto) 0.0 (0.0-0.1) 10^3/u L Nucleated RBC % (a uto) 0 % Nucleated RBCs # 0.0 /100WBC Poikilocytosis 1+ H Anisocytosis 1+ H Ovalocytes 1+ H [place] Cells 1+ H Acanthocytes (Spur ) Trace ESR (0-10) mm/hr Sodium 137 (136-145) mmol/L Potassium 4.0 (3.5-5.1) mmol/L Chloride 99 (98-107) mmol/L Carbon Dioxide 22 (22-29) mmol/L Anion Gap 20.0 H (5-19) BUN 34 H (8-23) mg/dL Creatinine 0.9 (0.7-1.2) mg/dL GFR Calculation Not Reportable Glucose 119 H (65-115) mg/dL Calculated Osmolal ity 293 (285-295) mOsm/k g Lactic Acid 2.0 (0.5-2.2) mmol/L Calcium 8.6 (8.5-10.5) mg/dL Total Bilirubin 0.6 (0.15-1.2) mg/dL AST 76 H (0-40) U/L ALT 18 (0-41) U/L Alkaline Phosphata se 80 (40-130) IU/L Troponin T Baselin e (0-15) ng/L Troponin T 120 Min [place] (0-15) ng/L Delta Troponin T (0-10) ABS# C-Reactive Protein 19.2 H (0.0-4.9) mg/L Total Protein 6.4 L (6.6-8.7) g/dL Albumin 3.4 L (3.5-5.2) g/dL Globulin 3.0 (1.3-4.6) g/dL Procalcitonin 0.06 (0-0.5) ng/mL Urine Color (Yellow) Urine Appearance (CLEAR) Urine pH (5-7) Ur Specific Gravit y (1.005-1.030) Urine Protein (Negative) Urine Glucose (UA) (Normal) Urine Ketones (Negative) Urine Blood (Negative) Urine Nitrate (Negative) Urine Bilirubin (Negative) Urine Urobilinogen (Negative) mg/dL Ur Leukocyte Alethea ase (Negative) Urine RBC (0-2) /hpf Urine WBC (0-5) /hpf Ur Squamous Epith Cells (0-5) /hpf Amorphous Sediment /hpf Urine Bacteria (NONE) /hpf SARS-CoV-2 Ag (Rap id) (Negative) 12/20/20 12/20/20 12/21/20 Range/Units 22:00 22:00 00:30 WBC (4.0-10.0) 10^3/ uL RBC (4.1-5.3) 10^6/u L Hgb (11.7-16.6) g/dL Hct (42.0-52.0) % MCV (80-94) fL MCH (28.0-34.0) pg MCHC (30.0-36.0) g/dL RDW (12.1-15.1) % Plt Count (130-400) 10^3/c mm MPV (7.4-10.4) fL Neut % (Auto) % Lymph % (Auto) % [place] % (Auto) % Eos % (Auto) % Baso % (Auto) % Neut # (Auto) (1.8-7.7) 10^3/u L Lymph # (Auto) (0.8-4.8) 10^3/u L [place] # (Auto) (0.2-0.9) 10^3/u L Eos # (Auto) (0.0-0.8) 10^3/u L Baso # (Auto) (0.0-0.1) 10^3/u L Nucleated RBC % (a uto) % Nucleated RBCs # /100WBC Poikilocytosis Anisocytosis Ovalocytes [place] Cells Acanthocytes (Spur ) ESR 41 H (0-10) mm/hr Sodium (136-145) mmol/L Potassium (3.5-5.1) mmol/L Chloride (98-107) mmol/L Carbon Dioxide (22-29) mmol/L Anion Gap (5-19) BUN (8-23) mg/dL Creatinine (0.7-1.2) mg/dL GFR Calculation Glucose (65-115) mg/dL Calculated Osmolal ity (285-295) mOsm/k g Lactic Acid (0.5-2.2) mmol/L Calcium (8.5-10.5) mg/dL Total Bilirubin (0.15-1.2) mg/dL AST (0-40) U/L ALT (0-41) U/L Alkaline Phosphata se (40-130) IU/L Troponin T Baselin e 34 H (0-15) ng/L Troponin T 120 [place] (0-15) ng/L Delta Troponin T (0-10) ABS# C-Reactive Protein (0.0-4.9) mg/L Total Protein (6.6-8.7) g/dL Albumin (3.5-5.2) g/dL Globulin (1.3-4.6) g/dL Procalcitonin (0-0.5) ng/mL Urine Color (Yellow) Urine Appearance (CLEAR) Urine pH (5-7) Ur Specific Gravit y (1.005-1.030) Urine Protein (Negative) Urine Glucose (UA) (Normal) Urine Ketones (Negative) Urine Blood (Negative) Urine Nitrate (Negative) Urine Bilirubin (Negative) Urine Urobilinogen (Negative) mg/dL Ur Leukocyte Alethea ase (Negative) Urine RBC (0-2) /hpf Urine WBC (0-5) /hpf Ur Squamous Epith Cells (0-5) /hpf Amorphous Sediment /hpf Urine Bacteria (NONE) /hpf SARS-CoV-2 Ag (Rap id) Positive H (Negative) 12/21/20 12/21/20 Range/Units 00:30 00:50 WBC (4.0-10.0) 10^3/ uL RBC (4.1-5.3) 10^6/u L Hgb (11.7-16.6) g/dL Hct (42.0-52.0) % MCV (80-94) fL MCH (28.0-34.0) pg MCHC (30.0-36.0) g/dL RDW (12.1-15.1) % Plt Count (130-400) 10^3/c mm MPV (7.4-10.4) fL Neut % (Auto) % Lymph % (Auto) % [place] % (Auto) % Eos % (Auto) % Baso % (Auto) % Neut # (Auto) (1.8-7.7) 10^3/u L Lymph # (Auto) (0.8-4.8) 10^3/u L [place] # (Auto) (0.2-0.9) 10^3/u L Eos # (Auto) (0.0-0.8) 10^3/u L Baso # (Auto) (0.0-0.1) 10^3/u L Nucleated RBC % (a uto) % Nucleated RBCs # /100WBC Poikilocytosis Anisocytosis Ovalocytes [place] Cells Acanthocytes (Spur ) ESR (0-10) mm/hr Sodium (136-145) mmol/L Potassium (3.5-5.1) mmol/L Chloride (98-107) mmol/L Carbon Dioxide (22-29) mmol/L Anion Gap (5-19) BUN (8-23) mg/dL Creatinine (0.7-1.2) mg/dL GFR Calculation Glucose (65-115) mg/dL Calculated Osmolal ity (285-295) mOsm/k g Lactic Acid (0.5-2.2) mmol/L Calcium (8.5-10.5) mg/dL Total Bilirubin (0.15-1.2) mg/dL AST (0-40) U/L ALT (0-41) U/L Alkaline Phosphata se (40-130) IU/L Troponin T Baselin e (0-15) ng/L Troponin T 120 [place] 31.45 H (0-15) ng/L Delta Troponin T -2.55 L (0-10) ABS# C-Reactive Protein (0.0-4.9) mg/L Total Protein (6.6-8.7) g/dL Albumin (3.5-5.2) g/dL Globulin (1.3-4.6) g/dL Procalcitonin (0-0.5) ng/mL Urine Color Yellow (Yellow) Urine Appearance Clear (CLEAR) Urine pH 5 (5-7) Ur Specific Gravit y 1.015 (1.005-1.030) Urine Protein 1+ H (Negative) Urine Glucose (UA) Norm (Normal) Urine Ketones Negative (Negative) Urine Blood 3+ H (Negative) Urine Nitrate Negative (Negative) Urine Bilirubin Neg (Negative) Urine Urobilinogen Norm (Negative) mg/dL Ur Leukocyte Alethea ase Negative (Negative) Urine RBC 0-4 H (0-2) /hpf Urine WBC 0-4 H (0-5) /hpf Ur Squamous Epith Cells 0-4 H (0-5) /hpf Amorphous Sediment 4+ /hpf Urine Bacteria Trace (NONE) /hpf SARS-CoV-2 Ag (Rap id) (Negative) Discharge Plan Discharge Patient Disposition: Admitted As Inpatient Admit Provider: Kanika Chase Clinical Impression: Chronic osteomyelitis of right foot, Altered mental status, COVID-19 Condition: Stable Discharge Diet: As Directed Discharge Activity: Resume usual activity and Increase activity as tolerated Sign Out Sign Out Data: Patient Sign Out occurred on 12/21/20 at 06:24. Patient's care was discussed, and care was transferred from to Tommy Christiansen DO. Coding Level of Care Code ED Meat Inspector for Maia Alexander
--- NOTE | 2020-12-20 21:02 | XRR_ITS ---
PROCEDURE INFORMATION: Exam: XR Chest Exam date and time: 12/20/2020 9:02 PM Age: 80 years old Clinical indication: Shortness of breath TECHNIQUE: Imaging protocol: XR of the chest. Views: 1 view. COMPARISON: CR XR chest 1V portable [id number] 09/15/2020 3:29 PM FINDINGS: Lungs: Patchy ground-glass opacities in the peripheral lung bases, left greater than right. Linear atelectasis in the left lung base. Pleural spaces: Small pleural effusions. No pneumothorax. Heart/Mediastinum: Unremarkable. No cardiomegaly. Bones/joints: Scoliosis. XR/XR chest 1V portable [id number] IMPRESSION: 1. Ground-glass opacities in both lung bases could represent pneumonia or pulmonary edema.
--- NOTE | 2020-12-20 21:04 | CTR_ITS ---
PROCEDURE INFORMATION: Exam: CT Head Without Contrast Exam date and time: 12/20/2020 9:04 PM Age: 80 years old Clinical indication: Altered mental status/memory loss; Additional info: AMS TECHNIQUE: Imaging protocol: Computed tomography of the head without contrast. Radiation optimization: All CT scans at this facility use at least one of these dose optimization techniques: automated exposure control; mA and/or kV adjustment per patient size (includes targeted exams where dose is matched to clinical indication); or iterative reconstruction. COMPARISON: CT head wo con* [id number] 09/15/2020 4:00 PM RADIATION DOSE METRICS: Total DLP (mGy-cm): 1214.72 FINDINGS: Brain: Moderate cortical volume loss. Moderate hypodensities in supratentorial periventricular and subcortical white matter, consistent with microangiopathy. No intracranial hemorrhage. Cerebral ventricles: No ventriculomegaly. Paranasal sinuses: Mucosal thickening in the maxillary sinuses. Mastoid air cells: Visualized mastoid air cells are well aerated. Orbital cavity: Cataract surgery. Vasculature: No hyperdense artery. Bones/joints: Unremarkable. No acute fracture. Soft tissues: Unremarkable. Other findings: Multiple images are degraded by motion artifact. CT/CT head wo con* [id number] IMPRESSION: 1. No acute intracranial abnormality. 2. Stable mild prominence of the lateral ventricles and temporal horns. This may relate to central volume loss but normal pressure hydrocephalus is not excluded. 3. Evaluation is limited by motion artifact. Radiation Dose CTDIVOL = (mGy): DLP = 1214.72 (mGy-cm)
--- NOTE | 2020-12-20 21:05 | XRR_ITS ---
PROCEDURE INFORMATION: Exam: XR Right Foot Exam date and time: 12/20/2020 9:05 PM Age: 80 years old Clinical indication: Pain; Foot; Right; Prior surgery; Additional info: Infection, concern for osteo TECHNIQUE: Imaging protocol: XR Right foot. Views: 1 or 2 views. COMPARISON: CR XR foot RT 2V [id number] 09/15/2020 4:12 PM FINDINGS: Bones/joints: Stable amputation of all 5 digits at the level of the proximal metatarsals. Stable diffuse inhomogeneity of the bones of the right foot, most likely disuse demineralization. On the lateral view, there is increased cortical irregularity within the plantar aspect of the 5th metatarsal. No fracture identified. Calcaneus spur. Soft tissues: No definite soft tissue gas visualized. Vasculature: Arterial calcifications. XR/XR foot RT 2V [id number] IMPRESSION: 1. Increased cortical irregularity along the plantar aspect of the 5th metatarsal amputation stump. This is suspicious for chronic versus acute osteomyelitis. Consider further evaluation with MRI.
[2020-12-20] MEDS: piperacillin-tazobactam 4.5 GM in sodium chloride 0.9% (plus) 50 ML IV (21:38)
--- NOTE | 2020-12-20 21:39 | PC.PHAR ---
PT VERY CONFUSED AND UNABLE TO CONFIRM ANY OF HIS MEDICATIONS. I AM GOING BY HIS MEDICATION HISTORY, BUT NONE OF THE PRESCRIPTIONS HAVE BEEN FILLED IN SEVERAL MONTHS. HE STATES HE TAKES MEDICATION, BUT DOESN'T KNOW WHAT.
[2020-12-20 22:16] LABS: Hemoglobin 13.2 g/dL (11.7-16.6); Lymphocytes # 0.5 10^3/uL (0.8-4.8); Lymphocytes % 8.7 %; Mean Corpuscular Hemoglobin 31.9 pg (28.0-34.0); Mean Corpuscular Volume 96.6 fL (80-94); Mean Platelet Volume 11.4 fL (7.4-10.4); Monocytes # 0.2 10^3/uL (0.2-0.9); Neutrophils # 5.16 10^3/uL (1.8-7.7); Neutrophils % 86.8 %; Nucleated Red Blood Cells % 0 %; Platelet Count 199 10^3/cmm (130-400); Red Blood Count 4.14 10^6/uL (4.1-5.3); Red Cell Distribution Width 14.2 % (12.1-15.1)
--- NOTE | 2020-12-20 22:31 | PC.NURSE ---
Contact Margo called for update; pt resting, fluids and medication infusing. Will continue to monitor.
[2020-12-20 22:33] VITALS: BP 105/81; PULSE 91; RESP 20; O2SAT 93
[2020-12-20 22:34] VITALS: O2SAT 94
[2020-12-20 22:35] LABS: Alanine Aminotransferase 18 U/L (0-41); Albumin Level 3.4 g/dL (3.5-5.2); Alkaline Phosphatase 80 IU/L (40-130); Aspartate Amino Transferase 76 U/L (0-40); Blood Urea Nitrogen 34 mg/dL (8-23); C Reactive Protein 19.2 mg/L (0.0-4.9); Calcium 8.6 mg/dL (8.5-10.5); Carbon Dioxide 22 mmol/L (22-29); Chloride 99 mmol/L (98-107); Glucose 119 mg/dL (65-115); Osmolality Calculated 293 mOsm/kg (285-295); Sodium 137 mmol/L (136-145); Total Bilirubin 0.6 mg/dL (0.15-1.2); Total Protein 6.4 g/dL (6.6-8.7)
--- NOTE | 2020-12-20 22:37 | ECG_ITS ---
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 Measurements Intervals [place] Rate: 96 P: 30 TN: 174 QRS: -50 QRSD: 104 T: 84 QT: 354 QTc: 448 Interpretive Statements SINUS RHYTHM WITH OCCASIONAL VENTRICULAR PREMATURE COMPLEXES WITH OCCASIONAL SUPRAVENTRICULAR PREMATURE COMPLEXES MARKED LEFT AXIS DEVIATION [QRS AXIS < -30] SEPTAL MYOCARDIAL INFARCTION [40+ ms Q WAVE IN V1/V2], OF INDETERMINATE AGE Compared to ECG 09/20/2020 08:28:50 Left-axis deviation now present Right-axis deviation no longer present Right bundle-branch block no longer present Myocardial infarct finding still present Electronically Signed On 12-23-2020 7:46:01 CDT by Andie Portillo M.D. [id number]
[2020-12-20 22:39] LABS: Procalcitonin 0.06 ng/mL (0-0.5)
[2020-12-20 22:47] LABS: Add RBC Morph Yes; Slide Review Slide Review Perform
[2020-12-20 22:48] LABS: Acanthocytes Trace; Anisocytosis 1+; Burr Cells 1+; Ovalocytes 1+; Poikilocytosis 1+; RBC Morph Comp No
[2020-12-20 23:09] LABS: Troponin(5th) Baseline 34 ng/L (0-15)
[2020-12-20 23:21] LABS: Erythrocyte Sedimentation Rate 41 mm/hr (0-10)
[2020-12-21] VITALS (13 sets, daily range): BP systolic 102–148; BP diastolic 66–89; PULSE 70–91; RESP 16–20; TEMP 36.6–37.2; O2SAT 90–97
[2020-12-21] MEDS: vancomycin 1,500 MG/300 ML PIGGYBACK 200 MG IV (00:16)
--- NOTE | 2020-12-21 00:37 | ECG_ITS ---
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 Measurements Intervals [place] Rate: 97 P: 23 AL: 161 QRS: -44 QRSD: 113 T: 119 QT: 372 QTc: 475 Interpretive Statements SINUS RHYTHM WITH OCCASIONAL VENTRICULAR PREMATURE COMPLEXES WITH OCCASIONAL SUPRAVENTRICULAR PREMATURE COMPLEXES MARKED LEFT AXIS DEVIATION [QRS AXIS < -30] SEPTAL MYOCARDIAL INFARCTION [40+ ms Q WAVE IN V1/V2], OF INDETERMINATE AGE Compared to ECG 12/20/2020 23:19:20 No significant changes Electronically Signed On 12-23-2020 10:05:23 CDT by Andie Portillo M.D. [id number]
[2020-12-21 01:02] LABS: Add Urine Culture? No; Amorphous Sediment Urine 4+ /hpf; Bacteria Urine TRACE /hpf; Bilirubin Urine Neg (Negative); Blood Urine 3+ (Negative); Glucose Urine UA Norm (Normal); Ketones Urine Negative (Negative); Leukocyte Esterase Urine Negative (Negative); Nitrate Urine Negative (Negative); Protein Urine 1+ (Negative); RBC Urine 0-4 /hpf (0-2); Specific Gravity, Urine 1.015 (1.005-1.030); Squamous Epithelial Cell Urine 0-4 /hpf (0-5); Urine Appearance Clear (CLEAR); Urine Color Yellow (Yellow); Urobilinogen Urine Norm (Negative); WBC Urine 0-4 /hpf (0-5); pH Urine 5 (5-7)
[2020-12-21 01:07] LABS: Troponin 5 2HR 31.45 ng/L (0-15)
[2020-12-21 01:09] LABS: Troponin 5 2HR Delta -2.55 ABS# (0-10)
[2020-12-21 01:31] LABS: SARS Covid-2 Antigen Positive (Negative)
--- NOTE | 2020-12-21 03:12 | PC.NURSE ---
Placed new adult brief. Pt resting, eyes closed, easily awakened. Lights down for comfort.
--- NOTE | 2020-12-21 04:37 | ECG_ITS ---
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 Measurements Intervals [place] Rate: 98 P: 17 AK: 168 QRS: -48 QRSD: 103 T: 74 QT: 357 QTc: 457 Interpretive Statements SINUS RHYTHM WITH OCCASIONAL VENTRICULAR PREMATURE COMPLEXES WITH OCCASIONAL SUPRAVENTRICULAR PREMATURE COMPLEXES MARKED LEFT AXIS DEVIATION [QRS AXIS < -30] POSSIBLE RIGHT VENTRICULAR CONDUCTION DELAY [RSR (QR) IN V1/V2] SEPTAL MYOCARDIAL INFARCTION [40+ ms Q WAVE IN V1/V2], OF INDETERMINATE AGE Compared to ECG 12/21/2020 01:14:27 No significant changes Electronically Signed On 12-23-2020 10:04:46 CDT by Andie Portillo M.D. [id number]
--- NOTE | 2020-12-21 07:21 | PM.HP ---
Providers/Chief Complaint Admitting Physician: Kanika Chase MD Primary Care Provider: Precious Coelho DO Chief Complaint: FEVER History of Present Illness Syed Whitt is a 80 year old male history of hypertension, diabetes, peripheral arterial disease, chronic LE ulcers heart failure with reduced action fraction 20%-40% , DVT/PE here today with chief complaint of generalized weakness confusion and [facility], Patient unable to partcipate in history due to poor mentation. Unable to reach family at listed number. Per review of home care visit notes, patient has had decline in functional status at least over the past week to 10 days, does appear deconditioned more chronically as well. w/up today notable for COVID 19 infection, 02 requirement at 3-4lpm. Unknown if he on home 02, on last admission he was on 2lpm Review of Systems General: Reports: ROS unobtainable due to mental status Medications/Allergies Home Medications Medication Instructions Recorded Confirmed Last Taken Type clopidogrel 75 mg tablet 75 mg PO QAM 09/24/19 12/20/20 09/13/20 History glimepiride 4 mg tablet 2 mg PO DAILY tab 09/24/19 12/20/20 09/13/20 History metformin 500 mg tablet 500 mg PO DAILY 09/24/19 12/20/20 09/13/20 History atorvastatin 40 mg PO QAM 09/15/20 12/20/20 Unknown History lisinopril 5 mg PO DAILY 09/15/20 12/20/20 Unknown History metoprolol tartrate 25 mg PO DAILY 09/15/20 12/20/20 09/13/20 History amoxicillin-pot clavulanate 1 tab PO DAILY #14 tab 09/20/20 12/20/20 Unknown Rx [Augmentin] omeprazole 20 mg tablet,delayed 20 mg PO DAILY 10/05/20 12/20/20 Unknown History release potassium chloride 20 mEq oral 20 meq PO DAILY #30 ea 11/09/20 12/20/20 Unknown Rx packet apixaban 5 mg tablet 5 mg PO BID@0900,2100 #180 tab 11/26/20 12/20/20 Unknown Rx furosemide 40 mg PO DAILY 12/20/20 12/20/20 Unknown History glucosamine sulfate [Glucosamine] 500 mg PO DAILY 12/20/20 12/20/20 Unknown History Allergies Allergy/AdvReac Type Severity Reaction Status Date / Time No Known Allergies Allergy Verified 10/05/20 15:45 PFSH Acute PFSH: Medical History CAD (coronary artery disease) Cellulitis CHF (congestive heart failure) Diabetes Diabetic foot ulcer Elevated troponin Heart failure with reduced ejection fraction Severely reduced ejection fraction 20% Hypertension NSTEMI (non-ST elevated myocardial infarction) Open wound of right foot Osteomyelitis PAD (peripheral artery disease) Peripheral arterial disease Syncope Due to hypoglycemia Surgical History 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) S/P peripheral artery angioplasty with stent placement Family History Denies family history of Hyperlipidemia Lung disease Hypertension Social History Smoking and tobacco status: former smoker Alcohol intake: current Alcohol intake frequency: 3 or more drinks per day Alcohol type: beer Housing: Other Details: Lives alone Vitals/I&O/Wt Last Vital Signs Temp 100.3 F H 12/20/20 20:51 Pulse 90 12/21/20 06:07 Resp 18 12/21/20 06:07 BP 125/76 12/21/20 06:07 Pulse Ox 94 12/21/20 06:07 12/20/20 12/21/20 12/21/20 22:59 06:59 14:59 Intake Total 2255.09 / 2255.09 Balance 2255.09 / 2255.09 Weight last 48 hrs Weight 63.503 kg Physical Exam Narrative: EXAM NARRATIVE: General: confused, disoriented, irritable HEENT: PERRLA, pupils bilaterally equal and reactive, pallors not present Chest: Normal vesicular breath sounds, no added sounds, equal good air entry bilaterally CVS: S1-S2 regular, no murmurs, no tachycardia, no gallops, no rubs Abdomen: Soft, nontender, no organomegaly, bowel sounds present Neuro: moves all extremities in bed Extremities: chronic LE wounds Data : 12/20/20 22:00 08/09/21 22:00 Micro: Microbiology 12/20/20 21:58 Blood Culture - Preliminary Blood SPECIMEN COLLECTED 12/20/20 22:00 Blood Culture - Preliminary Blood SPECIMEN COLLECTED Attestation for Other Data: I personally reviewed and interpreted the following: Other data: Laboratory Results WBC 6.0 10^3/uL (4.0-10.0) 12/20/20 22:00 RBC 4.14 10^6/uL (4.1-5.3) 12/20/20 22:00 Hgb 13.2 g/dL (11.7-16.6) 12/20/20 22:00 Hct 40.0 % (42.0-52.0) L 12/20/20 22:00 MCV 96.6 fL (80-94) H 12/20/20 22:00 MCH 31.9 pg (28.0-34.0) 12/20/20 22:00 MCHC 33.0 g/dL (30.0-36.0) 12/20/20 22:00 RDW 14.2 % (12.1-15.1) 12/20/20 22:00 Plt Count 199 10^3/cmm (130-400) 12/20/20 22:00 MPV 11.4 fL (7.4-10.4) H 12/20/20 22:00 Neut % (Auto) 86.8 % 12/20/20 22:00 Lymph % (Auto) 8.7 % 12/20/20 22:00 [place] % (Auto) 4.0 % 12/20/20 22:00 Eos % (Auto) 0.0 % 12/20/20 22:00 Baso % (Auto) 0.0 % 12/20/20 22:00 Neut # (Auto) 5.16 10^3/uL (1.8-7.7) 12/20/20 22:00 Lymph # (Auto) 0.5 10^3/uL (0.8-4.8) L 12/20/20 22:00 [place] # (Auto) 0.2 10^3/uL (0.2-0.9) 12/20/20 22:00 Eos # (Auto) 0.0 10^3/uL (0.0-0.8) 12/20/20 22:00 Baso # (Auto) 0.0 10^3/uL (0.0-0.1) 12/20/20 22:00 Nucleated RBC % (auto) 0 % 12/20/20 22:00 Nucleated RBCs # 0.0 /100WBC 12/20/20 22:00 Poikilocytosis 1+ H 12/20/20 22:00 Anisocytosis 1+ H 12/20/20 22:00 Ovalocytes 1+ H 12/20/20 22:00 Chavez Cells 1+ H 12/20/20 22:00 Acanthocytes (Spur) Trace 12/20/20 22:00 ESR 41 mm/hr (0-10) H 12/20/20 22:00 Sodium 137 mmol/L (136-145) 12/20/20 22:00 Potassium 4.0 mmol/L (3.5-5.1) 12/20/20 22:00 Chloride 99 mmol/L (98-107) 12/20/20 22:00 Carbon Dioxide 22 mmol/L (22-29) 12/20/20 22:00 Anion Gap 20.0 (5-19) H 12/20/20 22:00 BUN 34 mg/dL (8-23) H 12/20/20 22:00 Creatinine 0.9 mg/dL (0.7-1.2) 12/20/20 22:00 GFR Calculation Not Reportable 12/20/20 22:00 Glucose 119 mg/dL (65-115) H 12/20/20 22:00 Calculated Osmolality 293 mOsm/kg (285-295) 12/20/20 22:00 Lactic Acid 2.0 mmol/L (0.5-2.2) 12/20/20 22:00 Calcium 8.6 mg/dL (8.5-10.5) 12/20/20 22:00 Total Bilirubin 0.6 mg/dL (0.15-1.2) 12/20/20 22:00 AST 76 U/L (0-40) H 12/20/20 22:00 ALT 18 U/L (0-41) 12/20/20 22:00 Alkaline Phosphatase 80 IU/L (40-130) 12/20/20 22:00 Troponin T Baseline 34 ng/L (0-15) H 12/20/20 22:00 Troponin T 120 Minute 31.45 ng/L (0-15) H 12/21/20 00:30 Delta Troponin T -2.55 ABS# (0-10) L 12/21/20 00:30 C-Reactive Protein 19.2 mg/L (0.0-4.9) H 12/20/20 22:00 Total Protein 6.4 g/dL (6.6-8.7) L 12/20/20 22:00 Albumin 3.4 g/dL (3.5-5.2) L 12/20/20 22:00 Globulin 3.0 g/dL (1.3-4.6) 12/20/20 22:00 Procalcitonin 0.06 ng/mL (0-0.5) 12/20/20 22:00 Urine Color Yellow (Yellow) 12/21/20 00:50 Urine Appearance Clear (CLEAR) 12/21/20 00:50 Urine pH 5 (5-7) 12/21/20 00:50 Ur Specific [place] 1.015 (1.005-1.030) 12/21/20 00:50 Urine Protein 1+ (Negative) H 12/21/20 00:50 Urine Glucose (UA) Norm (Normal) 12/21/20 00:50 Urine Ketones Negative (Negative) 12/21/20 00:50 Urine Blood 3+ (Negative) H 12/21/20 00:50 Urine Nitrate Negative (Negative) 12/21/20 00:50 Urine Bilirubin Neg (Negative) 12/21/20 00:50 Urine Urobilinogen Norm mg/dL (Negative) 12/21/20 00:50 Ur Leukocyte Esterase Negative (Negative) 12/21/20 00:50 Urine RBC 0-4 /hpf (0-2) H 12/21/20 00:50 Urine WBC 0-4 /hpf (0-5) H 12/21/20 00:50 Ur Squamous Epith Cells 0-4 /hpf (0-5) H 12/21/20 00:50 Amorphous Sediment 4+ /hpf 12/21/20 00:50 Urine Bacteria Trace /hpf (NONE) 12/21/20 00:50 SARS-CoV-2 Ag (Rapid) Positive (Negative) H 12/21/20 00:30 Impressions Chest X-Ray 12/20/20 21:02 IMPRESSION: 1. Ground-glass opacities in both lung bases could represent pneumonia or pulmonary edema. Head CT 12/20/20 21:04 IMPRESSION: 1. No acute intracranial abnormality. 2. Stable mild prominence of the lateral ventricles and temporal horns. This may relate to central volume loss but normal pressure hydrocephalus is not excluded. 3. Evaluation is limited by motion artifact. Radiation Dose CTDIVOL = (mGy): DLP = 1214.72 (mGy-cm) Foot X-Ray 12/20/20 21:05 IMPRESSION: 1. Increased cortical irregularity along the plantar aspect of the 5th metatarsal amputation stump. This is suspicious for chronic versus acute osteomyelitis. Consider further evaluation with MRI. A&P Assessment and plan (1) Altered mental status: likely metabolic encephalopathy related to COVID 19 pneumonia Status: Acute (2) COVID-19: B/L infiltrates on CXR Remdisivir 200mg iv x 1 followed by 100mg iv daily dexamethasone 6mg IVP daily duoneb q6h, budesonide q12h empiric Zosyn Flutter valve/spirometer at bedside trend inflammatory markers including CRP, LDH, D dimer, Ferritin Lower likelihood of PE given he is on outpatient eliquis Status: Acute (3) Chronic venous insufficiency of lower extremity: Status: Acute (4) Diabetic peripheral neuropathy associated with type 2 diabetes mellitus: insulin sliding scale Status: Acute (5) Chronic osteomyelitis of right foot: CRP, ESR elevated but not significantly enough to raise suspcion for acute ostemyelitis AMS, lethargy more likely related to COVID 19 pneumonia rather than acute on chronic osteo. [place] appear to stable per review of home care notes Empiric Zosyn to cover for possibility of acute on chronic flare though seems less likely. Status: Acute Attestations Medical Necessity Statement*: >2midnight anticipated for above defined care Coding Level of Care Code Acute Critical Care Educator for [facility] Fwd Diagnoses Altered mental status R41.82 COVID-19 U07.1 Chronic venous insufficiency of lower extremity I87.2 Diabetic peripheral neuropathy associated with type 2 diabetes mellitus E11.42 Chronic osteomyelitis of right foot M86.671
[2020-12-21 07:58] LABS: Glucose Point of Care 112 mg/dL (70-110)
[2020-12-21 08:32] LABS: Troponin 5 6HR 47.93 ng/L (0-15)
[2020-12-21 09:22] LABS: Basophils % 0.2 %; Hematocrit 38.9 % (42.0-52.0); Hemoglobin 12.8 g/dL (11.7-16.6); Lymphocytes # 0.6 10^3/uL (0.8-4.8); Lymphocytes % 9.2 %; Mean Corpuscular HGB Conc 32.9 g/dL (30.0-36.0); Mean Corpuscular Hemoglobin 31.9 pg (28.0-34.0); Mean Platelet Volume 11.4 fL (7.4-10.4); Monocytes # 0.2 10^3/uL (0.2-0.9); Monocytes % 3.8 %; Neutrophils # 5.25 10^3/uL (1.8-7.7); Neutrophils % 86.1 %; Nucleated Red Blood Cells % 0 %; Platelet Count 184 10^3/cmm (130-400); Red Blood Count 4.01 10^6/uL (4.1-5.3); Red Cell Distribution Width 14.2 % (12.1-15.1); White Blood Count 6.1 10^3/uL (4.0-10.0)
[2020-12-21 09:43] LABS: NT Pro B Type Natriuretic Pept 7604 pg/mL (0-450); Procalcitonin 0.07 ng/mL (0-0.5)
[2020-12-21 09:47] LABS: Slide Review Slide Review Perform
[2020-12-21 09:55] LABS: Alanine Aminotransferase 16 U/L (0-41); Alkaline Phosphatase 67 IU/L (40-130); Anion Gap 17.7 (5-19); Aspartate Amino Transferase 76 U/L (0-40); Blood Urea Nitrogen 27 mg/dL (8-23); Calcium 8.3 mg/dL (8.5-10.5); Carbon Dioxide 20 mmol/L (22-29); Chloride 103 mmol/L (98-107); Globulin 3.3 g/dL (1.3-4.6); Glucose 95 mg/dL (65-115); Iron 29 ug/dL (59-158); Osmolality Calculated 289 mOsm/kg (285-295); Percent Saturation 17.1 % (20-50); Potassium 3.7 mmol/L (3.5-5.1); Sodium 137 mmol/L (136-145); Total Bilirubin 0.5 mg/dL (0.15-1.2); Total Iron Binding Capacity 169 mcg/dl; Total Protein 6.3 g/dL (6.6-8.7); Unsaturated Iron Binding 140 ug/dL (112-347)
[2020-12-21] MEDS: remdesivir 200 MG in sodium chloride 0.9% (100 ml) 100 ML 100 MG IV (09:56)
[2020-12-21] MEDS: FUROsemide 10 mg/mL SDV 4mL 40 MG IVP ×2 (09:57→21:04)
[2020-12-21] MEDS: metoprolol tartrate 25 mg Tablet PO (09:57)
[2020-12-21] MEDS: pantoprazole DR 40 mg Tablet PO (09:57)
[2020-12-21] MEDS: lisinopril 5 mg Tablet PO (09:57)
[2020-12-21] MEDS: apixaban 5 mg Tablet PO (09:57)
[2020-12-21] MEDS: dexamethasone 4 mg/mL INJ 6 MG IVP (09:57)
[2020-12-21 11:08] LABS: Glucose Point of Care 109 mg/dL (70-110)
[2020-12-21] MEDS: piperacillin-tazobactam 3.375 GM in sodium chloride 0.9% (plus) 50 ML IV ×2 (12:19→17:40)
--- NOTE | 2020-12-21 15:21 | CT_ITS ---
WS: [id number] CTA OF THE CHEST WITH PULMONARY EMBOLISM PROTOCOL TECHNIQUE: High-resolution contrast enhanced CTA of the chest with coronal and sagittal reformatted i mages with pulmonary embolism protocol. MIP images are also reviewed. CLINICAL INFORMATION: high dimer, covid COMPARISON: None. DLP: 577.[address] scans at [facility] use at least one of these dose optimization techniques: automat ed exposure control; mA and/or kV adjustment per patient size (includes targeted exams where dose is matched to clinical indication); or iterative reconstruction. FINDINGS: Proximal main pulmonary arteries are normal. Large filling defect in the distal main pulmonary artery extending into the segmental pulmonary arteries measuring 12 x 15 mm consistent with acute embolus. Additional smaller filling defects within the left upper and lower pulmonary arteries. Right main pul monary artery is patent. No definite visualized right-sided emboli although images significantly degr aded by motion and breathing artifact. Subsegmental vessels bilaterally poorly evaluated. Hazy bilateral groundglass infiltrates throughout both lungs consistent with COVID 19 pneumonia. This is more prominent in the perihilar regions and lower lobes. Compressive atelectasis right lower lobe . Subsegmental atelectasis left lower lobe. Trace pleural fluid. Aortic calcification. Coronary calcification. No mediastinal or hilar lymphadenopathy. Adrenal glands are normal. Mild fatty atrophy of the pancreas. SMA stent partially visualized in the upper abdomen. Small esophageal hiatal hernia. Cardiomegaly. No evidence of paradoxical septal bowing . No evidence of reflux into the hepatic veins. No evidence of right heart dysfunction. CT/CT angio chest PE protcl [id number] IMPRESSION: 1. Large embolus in the distal left main pulmonary artery extending into the s egmental pulmonary arteries measuring 12 x 15 mm. Additional smaller left-sided pulmonary emboli more prominent in the left upper and lower lobe. No definite visualized right-sided emboli although images significantly degraded by motion. 2. Bilateral hazy groundglass infiltrates more prominent about the hilum and b oth lower lobes compatible with COVID 19 pneumonia. 3. Cardiomegaly. No evidence of right ventricular dysfunction. 4. Small esophageal hiatal hernia. Notified Beto Elena MD at 12/21/2020 4:23 PM.
--- NOTE | 2020-12-21 15:22 | P.PN_ITS ---
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 Laying comfortably in bed, looks tired and lethargic. But is AO x2-3 on waking up. Denies any nausea, vomiting, headache. Complaining of mild cough and difficulty in breathing for last 1 week. States he is not hungry. States Ms. Aragon will make his medical decisions for him if and when needed. Vitals/I&O/Wt Last Vital Signs Temp 97.8 F 12/21/20 11:57 Pulse 85 12/21/20 11:57 Resp 19 H 12/21/20 11:57 BP 148/76 12/21/20 11:57 Pulse Ox 94 12/21/20 11:57 12/21/20 12/21/20 12/21/20 06:59 14:59 22:59 Intake Total 2255.09 / 2255.09 100 / 100 Output Total 1050 / 1050 Balance 2255.09 / 2255.09 -950 / -950 Weight last 48 hrs Weight 64.455 kg Weight 63.503 kg Physical Exam Narrative: EXAM NARRATIVE: General: No acute distress, drowsy, awakes to physical contact, on waking up alert to self, being in hospital, reason for being in hospital. HEENT: PERRLA, pupils bilaterally equal and reactive, pallor present, Chest: Normal vesicular breath sounds, no added sounds, equal good air entry bilaterally CVS: S1-S2 regular, soft pansystolic murmur, no tachycardia, no gallops, no rubs Abdomen: Soft, nontender, no organomegaly, bowel sounds present Neuro: No focal deficits, no facial deformity, AO x3, power 5/5 in all limbs Urinary Catheter Management^: Taylor: Cath Placed During This Visit: yes Urinary Catheter Date of Insertion: 12/21/20 Urinary Catheter Time of Insertion: 13:36 Data : 12/21/20 07:29 12/21/20 07:29 Micro: Microbiology 12/20/20 21:58 Blood Culture - Preliminary Blood SPECIMEN COLLECTED 12/20/20 22:00 Blood Culture - Preliminary Blood SPECIMEN COLLECTED A&P Assessment and plan (1) Hypoxia: Status: Acute (2) Altered mental status: likely metabolic encephalopathy related to COVID 19 pneumonia Status: Acute (3) COVID-19: Status: Acute (4) CHF (congestive heart failure): Status: Acute (5) CAD (coronary artery disease): Status: Acute Qualifiers: Coronary Disease-Associated Artery/Lesion type: [place] artery [place] vs. transplanted heart: [place] heart Associated angina: without angina Qualified Code(s): I25.10 - Atherosclerotic heart disease of [place] coronary artery without angina pectoris (6) CKD (chronic kidney disease): Status: Acute (7) Chronic osteomyelitis of right foot: CRP, ESR elevated but not significantly enough to raise suspcion for acute ostemyelitis AMS, lethargy more likely related to COVID 19 pneumonia rather than acute on chr onic osteo. Wouds appear to stable per review of home care notes Empiric Zosyn to cover for possibility of acute on chronic flare though seems less likely. Status: Acute (8) Diabetic peripheral neuropathy associated with type 2 diabetes mellitus: insulin sliding scale Status: Acute (9) Chronic venous insufficiency of lower extremity: Status: Acute (10) Physical deconditioning: Status: Acute Additional A&P Information Altered mental status most likely secondary to metabolic encephalopathy from COVID-19 Hypoxia: Secondary to combination of CHF and COVID-19 pneumonia: Mild to moderate disease. Oxygen supplementation keeping saturation over 88%. Dexamethasone 6 mg daily. Remdesivir to finish a 5-day course. Vitamin C, zinc. Advair, Spiriva. Pulmonary toilet with incentive spirometry flutter valve. We will monitor inflammatory markers including ferritin, ESR, CRP, D-dimer, fibrinogen. If getting elevated will dose Actemra. Patient was made aware of the same and he has given verbal consent. D-dimer elevated. Check CTA to rule out pulmonary embolism. For now continue with home dose of Eliquis 5 mg twice daily for DVT. Will monitor for anemia or blood loss. Check sputum culture, procalcitonin, urine Legionella, bacterial antigen, blood culture. Given the chance of aspiration pneumonia for now continue with Zosyn. If remains hemodynamically stable afebrile for next 24 hours will de-escalate antibiotics. Congestive heart failure: Mixed systolic and diastolic. Last echocardiogram done in September shows an EF of 40% with grade 1 diastolic dysfunction with aortic sclerosis. Check proBNP. IV Lasix 40 mg twice daily. Strict input output charting, daily weights. Target -1 L in next 24 hours. Taylor catheterization. Type 2 diabetes mellitus: Check HbA1c. Stop OHA's. Insulin sliding scale. CAD: No active chest pain. Home dose of atorvastatin, Plavix. Continue with home dose of metoprolol. Check lipid panel. History of DVT: Continue with Eliquis for now. Continue other chronic medications. History of chronic osteomyelitis of right foot: ESR and CRP elevated but not too high. Most likely secondary COVID-19 and unlikely from osteomyelitis. Continue with Zosyn for now. CODE STATUS: Discussed with patient and patient's caregiver Ms. Aragon over the phone. Full code. Patient states Ms. Aragon will be the one making medical decisions for him. Cardiac carb consistent diet. Famotidine for PUD prophylaxis. Eliquis will help with DVT prophylaxis PT/OT Attestations Medical Necessity Statement*: Requires further hospitalization for management of altered mental status and hypoxia secondary to COVID-19 pneumonia Time Spent in Patient Care: Greater than 35 minutes (>than 50% of time spent in counselling and/or direct pt care on unit) . 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 transplanted heart: [place] heart Associated angina: without angina CKD (chronic kidney disease) N18.9 Chronic osteomyelitis of right foot M86.671 Diabetic peripheral neuropathy associated with type 2 diabetes mellitus E11.42 Chronic venous insufficiency of lower extremity I87.2 Physical deconditioning R53.81
[2020-12-21] MEDS: ipratropium-albuterol 3 mL Neb INHALATION (15:31)
[2020-12-21] MEDS: iohexol 350 mg/mL 100 mL Btl IV (15:58)
[2020-12-21] MEDS: heparin drip 25,000 UNIT/500 ML PREMIX 18 UNIT IV (16:49)
[2020-12-21] MEDS: heparin 5,000 unit/mL INJ 1 mL IV (16:49)
[2020-12-21 16:59] LABS: Glucose Point of Care 158 mg/dL (70-110)
[2020-12-21 17:17] LABS: Amphetamines Screen Urine Negative (Negative); Barbiturates Screen Urine Negative (Negative); Benzodiazepines Screen Urine Negative (Negative); Cocaine Screen Urine Negative (Negative); Opiate Screen Urine Negative (Negative); PCP Screen Urine Negative (Negative); THC Screen Urine Negative (Negative)
[2020-12-21] MEDS: ascorbic acid 500 mg Tablet PO (17:41)
[2020-12-21] MEDS: ferrous gluconate 324 mg Tablet PO (17:41)
[2020-12-21 20:27] LABS: Glucose Point of Care 227 mg/dL (70-110)
[2020-12-21] MEDS: benzonatate 100 mg Capsule PO (21:04)
[2020-12-21] MEDS: atorvastatin 40 mg Tablet PO (21:04)
[2020-12-22] VITALS (12 sets, daily range): BP systolic 73–122; BP diastolic 46–68; PULSE 63–82; RESP 16–18; TEMP 36.3–36.7; O2SAT 90–96
[2020-12-22] MEDS: piperacillin-tazobactam 3.375 GM in sodium chloride 0.9% (plus) 50 ML IV ×3 (00:40→21:11)
[2020-12-22 00:50] LABS: Basophils % 0.1 %; Hematocrit 37.5 % (42.0-52.0); Hemoglobin 12.4 g/dL (11.7-16.6); Lymphocytes # 0.6 10^3/uL (0.8-4.8); Lymphocytes % 8.4 %; Mean Corpuscular HGB Conc 33.1 g/dL (30.0-36.0); Mean Corpuscular Hemoglobin 32.1 pg (28.0-34.0); Mean Corpuscular Volume 97.2 fL (80-94); Mean Platelet Volume 11.3 fL (7.4-10.4); Monocytes # 0.3 10^3/uL (0.2-0.9); Monocytes % 3.9 %; Neutrophils # 5.81 10^3/uL (1.8-7.7); Neutrophils % 86.9 %; Nucleated Red Blood Cells % 0 %; Platelet Count 192 10^3/cmm (130-400); Red Blood Count 3.86 10^6/uL (4.1-5.3); Red Cell Distribution Width 14.4 % (12.1-15.1); White Blood Count 6.7 10^3/uL (4.0-10.0)
[2020-12-22 01:02] LABS: Partial Thromboplastin Time 66.3 SECONDS (23.9-36.7)
[2020-12-22 01:07] LABS: D Dimer 1.82 ug/mIFEU (0-0.59); Slide Review Slide Review Perform
[2020-12-22 01:08] LABS: Estmated Average Glucose 131; Hemoglobin A1C 6.2 % (4.0-6.0)
[2020-12-22 01:31] LABS: NT Pro B Type Natriuretic Pept 28222 pg/mL (0-450); Procalcitonin 0.09 ng/mL (0-0.5)
[2020-12-22 01:37] LABS: Alanine Aminotransferase 17 U/L (0-41); Alkaline Phosphatase 68 IU/L (40-130); Anion Gap 18.2 (5-19); Aspartate Amino Transferase 60 U/L (0-40); Blood Urea Nitrogen 28 mg/dL (8-23); Calcium 7.8 mg/dL (8.5-10.5); Carbon Dioxide 23 mmol/L (22-29); Chloride 101 mmol/L (98-107); Globulin 2.3 g/dL (1.3-4.6); Glucose 172 mg/dL (65-115); Osmolality Calculated 298 mOsm/kg (285-295); Potassium 3.2 mmol/L (3.5-5.1); Sodium 139 mmol/L (136-145); Total Bilirubin 0.5 mg/dL (0.15-1.2); Total Protein 5.3 g/dL (6.6-8.7)
[2020-12-22 01:42] LABS: C Reactive Protein 70.1 mg/L (0.0-4.9); Cholesterol 96 mg/dL (0-200); HDL Cholesterol 30 mg/dL (60-100); LDL Cholesterol Calculated 53 mg/dL (50-129); Lactate Dehydrogenase 498 U/L (135-225); Triglycerides 64 mg/dL (0-150); VLDL Cholestrol Calculation 13 mg/dL (0-30)
[2020-12-22 01:44] LABS: Creatine Phosphokinase 781 U/L (39-308)
[2020-12-22 01:54] LABS: Erythrocyte Sedimentation Rate 33 mm/hr (0-10)
--- NOTE | 2020-12-22 02:03 | PC.NURSE ---
Heparin drip Initial rate was calculated at 18ml/hr. Pump was set originally to 10ml/hr in error. 6 hour ptt at 0040 came back in normal range with no changes to be made. Heparin running at 10ml/hr since ptt is in normal range. Physician notified and confirmed to heparin drip at 10ml/hr. Will reassess ptt at 0640.
--- NOTE | 2020-12-22 04:00 | USCV_ITS ---
Syed Whitt Age: 80 Gender: M : 1940 Exam Date: 12/22/2020 06:11 Ordering Phys: Beto Elena MD Technologist: Michaela De Leon Exam Location: [facility] [place] Indication: PE MASSIVE BP: 122 / 64 HR: 66 Rhythm: Sinus Technical Quality: Adequate MEASUREMENTS (Male / Female) Normal Values 2D ECHO LV Diastolic Diameter PLAX 3.9 cm 4.2 - 5.9 / 3.9 - 5.3 cm LV Systolic Diameter PLAX 3.0 cm LV Chamber Size 4.3 cm IVS Diastolic Thickness 1.2 cm 0.6 - 1.0 / 0.6 - 0.9 cm IVS Systolic Thickness 1.7 cm LVPW Diastolic Thickness 1.7 cm 0.6 - 1.0 / 0.6 - 0.9 cm LVPW Systolic Thickness 2.1 cm RV Chamber Size 3.0 cm LVOT Diameter 2.0 cm LV Ejection Fraction 2D Teich 44.2 % LV Ejection Fraction MOD 2C 55.2 % LV Ejection Fraction 2C AL 54.7 % LA Diameter 4.0 cm LA Width 2.6 cm LA Height 4.0 cm RA Width 2.7 cm RA Height 3.0 cm Aorta at Sinotubular Diameter 3.0 cm M-MODE LV Diastolic Diameter MM 5.0 cm 4.2 - 5.9 / 3.9 - 5.3 cm LV Systolic Diameter MM 3.2 cm LV Ejection Fraction MM Teich 63.5 % IVS Diastolic Thickness MM 0.9 cm 0.6 - 1.0 / 0.6 - 0.9 cm IVS Systolic Thickness MM 1.2 cm LVPW Diastolic Thickness MM 1.2 cm 0.6 - 1.0 / 0.6 - 0.9 cm LVPW Systolic Thickness MM 1.6 cm Aortic Annulus Diameter 3.9 cm LA Ao Ratio MM 1.1 MV E Point Septal Separation 1.2 cm DOPPLER AV Peak Velocity 98.0 cm/s LVOT Peak Velocity 66.0 cm/s AV Area Cont Eq vti 3.0 cm squared AV Area Cont Eq pk 2.2 cm squared MV Area PHT 4.1 cm squared Mitral E to A Ratio 0.6 MV E' Velocity 31.5 cm/s Mitral E to MV E' Ratio 9.6 Mitral E to LV E' Lateral Ratio 7.5 Mitral E to LV E' Septal Ratio 13.6 TR Peak Velocity 106.2 cm/s TR Peak Gradient 4.5 mmHg TR Mean Velocity 70.2 cm/s TR Mean Gradient 2.3 mmHg TR Velocity Time Integral 26.3 cm TV Peak E Velocity 61.0 cm/s Right Atrial Pressure 3.0 mmHg Pulmonary Artery Systolic Pressu 7.5 mmHg PV Peak Velocity 92.0 cm/s RV Acceleration Time 0.2 s RV Ejection Time 0.5 s RV AcT/ET 0.3 FINDINGS Left Ventricle Normal left ventricular cavity size. Mildly decreased left ventricular systolic function. Left ventricular ejection fraction is estimated at 60 %. There appeared to be apical hypokinesis.Grade I/IV diastolic dysfunction (abnormal relaxation filling pattern), normal to mildly elevated filling pressures. Right Ventricle The right ventricle is normal in size and function. Right Atrium The right atrium is normal in size. Left Atrium The left atrium is normal in size. Mitral Valve Moderately thickened mitral valve. No mitral valve stenosis. Moderate mitral valve regurgitation. Aortic Valve Moderate aortic valve calcification. No aortic valve stenosis. No aortic valve regurgitation. Tricuspid Valve Structurally normal tricuspid valve without significant stenosis or regurgitation. Pulmonary artery systolic pressure is normal. Pulmonic Valve Structurally normal pulmonic valve without significant stenosis. There is no pulmonic regurgitation. Pericardium Normal pericardium without effusion. Aorta Normal ascending aorta dimension. CONCLUSIONS 1-Normal left ventricular cavity size. Mildly decreased left ventricular systolic function. Left ventricular ejection fraction is estimated at 60 %. There appeared to be apical hypokinesis.Grade I/IV diastolic dysfunction (abnormal relaxation filling pattern), normal to mildly elevated filling pressures. 2-Moderate aortic valve calcification. No aortic valve stenosis. No aortic valve regurgitation. 3-Moderately thickened mitral valve. No mitral valve stenosis. Moderate mitral valve regurgitation. 4-There is no pericardial effusion. 5-Pulmonary artery systolic pressure is within normal limits. 6-Right atrial pressure is around 5 mm of mercury. 7-When compared to the prior echocardiogram dated September 16, 2020 left ventricle ejection fraction improved from 40% to 60% now. Jaret Valle MD (Electronically Signed) Final Date: 22 December 2020 18:45 S
[2020-12-22 04:44] LABS: Ferritin 2185 ng/mL (30-400)
--- NOTE | 2020-12-22 06:00 | XR_ITS ---
WS: [id number] Portable AP upright chest, 12/22/2020 Clinical Data: covid Comparison: Portable chest, 12/20/2020. Findings: The basilar peripheral pulmonary opacities have increased on the right and are unchanged on the left. There are small bilateral pleural effusions. No nodules or masses are seen. The heart is n ormal. There is deviation of the trachea from left to right. XR/XR chest 1V portable [id number] Impression: Worsening of basilar peripheral pulmonary opacity on the right but unchanged on the left consistent with pneumonia.
[2020-12-22] MEDS: clopidogrel 75 mg Tablet PO (06:17)
[2020-12-22] MEDS: remdesivir 100 MG in sodium chloride 0.9% (100 ml) 100 ML IV (06:17)
--- NOTE | 2020-12-22 06:33 | PC.NURSE ---
Lab notified of timed PTT for heparin drip
[2020-12-22 08:09] LABS: Partial Thromboplastin Time 49.3 SECONDS (23.9-36.7)
[2020-12-22] MEDS: ascorbic acid 500 mg Tablet PO ×2 (08:53→16:50)
[2020-12-22] MEDS: pantoprazole DR 40 mg Tablet PO (08:53)
[2020-12-22] MEDS: zinc gluconate 50 mg Tablet PO (08:53)
[2020-12-22] MEDS: benzonatate 100 mg Capsule PO ×3 (08:53→21:12)
[2020-12-22] MEDS: ferrous gluconate 324 mg Tablet PO ×2 (08:53→16:50)
[2020-12-22] MEDS: metoprolol tartrate 25 mg Tablet PO (08:54)
[2020-12-22] MEDS: heparin 5,000 unit/mL INJ 1 mL IV (09:00)
[2020-12-22] MEDS: dexamethasone 4 mg/mL INJ 6 MG IVP (09:00)
[2020-12-22] MEDS: FUROsemide 10 mg/mL SDV 4mL 40 MG IVP (09:01)
[2020-12-22 11:25] LABS: Partial Thromboplastin Time 85.7 SECONDS (23.9-36.7)
[2020-12-22 11:36] LABS: Glucose Point of Care 171 mg/dL (70-110)
--- NOTE | 2020-12-22 11:47 | PC.CHAP ---
Pastoral Care Encounter/Spiritual Assessment Type of Contact [] Declined pot runner visit [] Patient/Family/Request visit [] Outpatient visit [] Follow-up visit [] Physician referral [] Code/Alert [x] Routine visit [] Staff referral [] Actively dying [x] Patient sleeping [] Family support [] [] Out of room [] Palliative care [] [] Receiving care in room [] Pre-surgical visit [] Trauma [] Long length of stay [] ICU visit [] Other: Relational/Emotional Strength [] Patient feels connected with others/family/visitors/staff [] Distress [] Loneliness/isolation [] Abandonment Spirituality of Patient [] Person of Lorie [] Attends Zoroastrian of their Lorie [] Believes in Prayer [] Reads Bible or Christian materials [] There are Spiritual issues to be addressed Interior Design Program Chair Interventions [] Prayer [] Active listening [] Non-anxious presence [] Spiritual/emotional support [] Crisis/trauma care [] Spiritual counseling [] Bereavement support [] Provided bereavement packet [] Provided Bible/devotional materials [] Provided toy/stuffed animal, coloring book to patient or family member [] Provided Communion [] Anointing/[place] [] Salvation [x] Completed spiritual assessment [] Other: Impact on Illness or Injury [] Angry [] Fearful [] Anxious [] Often cries [] Exhaustion [] Unable to work [] Unable to attend jew [] Unable to walk/stand [] Unable to read [] Unable to drive [] Unable to eat/drink [] Unable to sleep [] Unable to be with family [] Patient intubated [] Other: Summary Time spent with patient
--- NOTE | 2020-12-22 13:55 | PM.PN ---
Subjective Subjective: Interval history: No events overnight. In last [address] done which is positive for pulmonary embolism. He is currently on 3 L oxygen supplementation saturating 96%. Awake and alert having conversations over slow to respond which seems to be his baseline. Denies any nausea vomiting, headache, dizziness. Currently laying in bed. Blood pressure overnight has 1 charting of 82 systolic. Repeat blood pressure shows 98 systolic. He states Ms. Aragon is the one will be making medical decisions for him when he is not able to. He states Ms. Aragon helps him at home with his health and his medications. Usually he is wheelchair-bound except when he gets out to walk around. He walks around with walker. States usually he does not walk around much. Vitals/I&O/Wt Last Vital Signs Temp 97.4 F L 12/22/20 13:44 Pulse 69 12/22/20 13:44 Resp 16 12/22/20 13:44 BP 102/61 12/22/20 13:44 Pulse Ox 96 12/22/20 13:44 12/21/20 12/22/20 12/22/20 22:59 06:59 14:59 Intake Total 103.3 / 203.3 50 / 253.3 336 / 336 Output Total 525 / 1575 600 / 2175 Balance -421.7 / -1371.7 -550 / -1921.7 336 / 336 Weight last 48 hrs Weight 64.455 kg Weight 63.503 kg Physical Exam Narrative: EXAM NARRATIVE: General: No acute distress, AO x2-3, slow to respond HEENT: PERRLA, pupils bilaterally equal and reactive, pallor present, Chest: Normal vesicular breath sounds, no added sounds, equal good air entry bilaterally CVS: S1-S2 regular, soft pansystolic murmur, no tachycardia, no gallops, no rubs Abdomen: Soft, nontender, no organomegaly, bowel sounds present Neuro: No focal deficits, no facial deformity, AO x3, power 5/5 in all limbs Urinary Catheter Management^: Taylor: Cath Placed During This Visit: yes Reason for Continuing Indwelling Catheter: Acute Urinary Retention or Obstruction Urinary Catheter Date of Insertion: 12/21/20 Urinary Catheter Time of Insertion: 13:36 Data : 12/22/20 00:40 12/22/20 00:40 Micro: Microbiology 12/20/20 22:00 Blood Culture - Preliminary Blood 12/20/20 21:58 Blood Culture - Preliminary Blood Enterococcus species Corynebacterium species 12/21/20 00:50 Urine Culture - Preliminary Urine Catheterized 12/21/20 00:50 Legionella Urinary Antigen - Final Urine Catheterized 12/21/20 00:50 Bacterial Antigens - Final Urine Kidney 12/21/20 10:06 MRSA Culture - Final Nose A&P Assessment and plan (1) Bacteremia due to Enterococcus: Status: Acute (2) Pulmonary embolism: Status: Acute (3) Hypoxia: Status: Acute (4) COVID-19: Status: Acute (5) CHF (congestive heart failure): Status: Acute (6) CAD (coronary artery disease): Status: Acute Qualifiers: Coronary Disease-Associated Artery/Lesion type: [place] artery [place] vs. transplanted heart: [place] heart Associated angina: without angina Qualified Code(s): I25.10 - Atherosclerotic heart disease of [place] coronary artery without angina pectoris (7) CKD (chronic kidney disease): Status: Acute (8) Physical deconditioning: Status: Acute (9) Chronic venous insufficiency of lower extremity: Status: Acute (10) Diabetic peripheral neuropathy associated with type 2 diabetes mellitus: insulin sliding scale Status: Acute (11) Chronic osteomyelitis of right foot: CRP, ESR elevated but not significantly enough to raise suspcion for acute ostemyelitis AMS, lethargy more likely related to COVID 19 pneumonia rather than acute on chronic osteo. [place] appear to stable per review of home care notes Empiric Zosyn to cover for possibility of acute on chronic flare though seems less likely. Status: Acute (12) Altered mental status: Resolving. Status: Acute (13) Physical deconditioning: Status: Deleted Additional A&P Information Altered mental status most likely secondary to metabolic encephalopathy from Enterococcus bacteremia and COVID-19: Improving. Hypoxia: Secondary to combination of submassive pulmonary embolism, COVID-19 and component of CHF: Moderate disease. For pulmonary embolism: For now continue with heparin drip maintaining his PTT. Will transition over to Lovenox for the next 24 hours. Patient takes Eliquis at home. As per caregiver he has been taking medications regularly. Most likely will have to switch the anticoagulation on discharge. Possibly to Xarelto. Check echocardiogram to rule out right heart strain. For COVID-19 pneumonia: Oxygen supplementation keeping saturation over 88%. Dexamethasone 6 mg daily. Remdesivir to finish a 5-day course. Vitamin C, zinc. Advair, Spiriva. Pulmonary toilet with incentive spirometry flutter valve. We will monitor inflammatory markers including ferritin, ESR, CRP, D-dimer, fibrinogen. If getting elevated will dose Actemra. Patient was made aware of the same and he has given verbal consent. MRSA positive, bacterial antigen, urine Legionella negative. Urine culture preliminarily negative. Continue with Zosyn for now. Add vancomycin. Enterococcus bacteremia: Unknown source. Repeat blood cultures. Continue with antibiotics as above. Most likely patient will need 14 days of antibiotics since last positive blood cultures. If patient has persistent bacteremia will have to rule out other possible source of infections. Congestive heart failure: Mixed systolic and diastolic. Last echocardiogram done in September shows an EF of 40% with grade 1 diastolic dysfunction with aortic sclerosis. EF had improved in last 2 months from 25 to 40%. proBNP elevated. Repeating echocardiogram given submassive pulmonary embolism. Net euvolemic. For now hold off on IV Lasix given soft blood pressures. Patient looks dehydrated. Will dose Lasix daily. Strict input output charting, daily weights. Type 2 diabetes mellitus: HbA1c 6.2. Stop OHA's. Insulin sliding scale. CAD: No active chest pain. Home dose of atorvastatin, Plavix. Continue with home dose of metoprolol. Check lipid panel. History of DVT: Continue other chronic medications. History of chronic osteomyelitis of right foot: ESR and CRP elevated but not too high. Most likely secondary COVID-19 and unlikely from osteomyelitis. CODE STATUS: Discussed with patient and patient's caregiver Ms. Aragon. Patient wants Ms. Aragon to make medical decisions for him when he is not able to. Today patient states he he is okay with chest compressions but would not want any kind of life support or ventilator support if and when needed. CODE STATUS changed to limited resuscitation. Have alerted case management for DPOA paperwork. Cardiac carb consistent diet. Famotidine for PUD prophylaxis. Eliquis will help with DVT prophylaxis PT/OT/speech evaluation. Patient's care discussed with Ms. Aragon over the phone. All the questions were answered. Attestations Medical Necessity Statement*: Requires further hospitalization for management of hypoxia secondary to COVID-19 pneumonia, massive pulmonary embolism, CHF, Enterococcus bacteremia, physical deconditioning Time Spent in Patient Care: Greater than 35 minutes (>than 50% of time spent in counselling and/or direct pt care on unit). Coding Level of Care Code Acute Medical Field Representative for [facility] Diagnoses Bacteremia due to Enterococcus R78.81; B95.2 Pulmonary embolism I26.99 Hypoxia R09.02 COVID-19 U07.1 CHF (congestive heart failure) I50.9 CAD (coronary artery disease) I25.10 Coronary Disease-Associated Artery/Lesion type: [place] artery [place] vs. transplanted heart: [place] heart Associated angina: without angina CKD (chronic kidney disease) N18.9 Physical deconditioning R53.81 Chronic venous insufficiency of lower extremity I87.2 Diabetic peripheral neuropathy associated with type 2 diabetes mellitus E11.42 Chronic osteomyelitis of right foot M86.671 Altered mental status R41.82 Physical deconditioning R53.81
[2020-12-22 15:50] LABS: Partial Thromboplastin Time 98.3 SECONDS (23.9-36.7)
[2020-12-22] MEDS: vancomycin 1,000 MG in sodium chloride 0.9% 250 ML 250 MG IV (16:43)
[2020-12-22 17:15] LABS: Glucose Point of Care 223 mg/dL (70-110)
[2020-12-22 20:33] LABS: Glucose Point of Care 150 mg/dL (70-110)
[2020-12-22] MEDS: atorvastatin 40 mg Tablet PO (21:12)
[2020-12-23] VITALS (9 sets, daily range): BP systolic 86–112; BP diastolic 50–70; PULSE 53–92; RESP 16–18; TEMP 36.1–36.7; O2SAT 89–96
[2020-12-23] MEDS: piperacillin-tazobactam 3.375 GM in sodium chloride 0.9% (plus) 50 ML IV ×3 (04:02→21:22)
[2020-12-23 06:06] LABS: Platelet Count 183 10^3/cmm (130-400)
[2020-12-23] MEDS: remdesivir 100 MG in sodium chloride 0.9% (100 ml) 100 ML IV (06:11)
[2020-12-23] MEDS: clopidogrel 75 mg Tablet PO (06:12)
[2020-12-23 06:24] LABS: NT Pro B Type Natriuretic Pept 6056 pg/mL (0-450)
[2020-12-23 06:34] LABS: Glucose Point of Care 139 mg/dL (70-110)
[2020-12-23 06:40] LABS: Creatine Phosphokinase 428 U/L (39-308)
[2020-12-23 09:40] LABS: Basophils % 0.2 %; Hematocrit 38.2 % (42.0-52.0); Hemoglobin 12.6 g/dL (11.7-16.6); Lymphocytes # 0.7 10^3/uL (0.8-4.8); Lymphocytes % 4.8 %; Mean Corpuscular Hemoglobin 31.6 pg (28.0-34.0); Mean Corpuscular Volume 95.7 fL (80-94); Monocytes # 0.4 10^3/uL (0.2-0.9); Monocytes % 2.8 %; Neutrophils # 12.43 10^3/uL (1.8-7.7); Neutrophils % 90.8 %; Nucleated Red Blood Cells % 0 %; Platelet Count 216 10^3/cmm (130-400); Red Blood Count 3.99 10^6/uL (4.1-5.3); Red Cell Distribution Width 14.2 % (12.1-15.1); White Blood Count 13.7 10^3/uL (4.0-10.0)
[2020-12-23 09:44] LABS: Alanine Aminotransferase 17 U/L (0-41); Albumin Level 2.7 g/dL (3.5-5.2); Alkaline Phosphatase 58 IU/L (40-130); Anion Gap 22.7 (5-19); Aspartate Amino Transferase 63 U/L (0-40); Blood Urea Nitrogen 42 mg/dL (8-23); Calcium 7.9 mg/dL (8.5-10.5); Carbon Dioxide 18 mmol/L (22-29); Chloride 104 mmol/L (98-107); Globulin 2.6 g/dL (1.3-4.6); Glucose 116 mg/dL (65-115); Osmolality Calculated 303 mOsm/kg (285-295); Potassium 3.7 mmol/L (3.5-5.1); Sodium 141 mmol/L (136-145); Total Bilirubin 0.5 mg/dL (0.15-1.2); Total Protein 5.3 g/dL (6.6-8.7)
[2020-12-23 10:18] LABS: Slide Review Slide Review Perform
[2020-12-23] MEDS: ferrous gluconate 324 mg Tablet PO ×2 (10:41→17:56)
[2020-12-23] MEDS: benzonatate 100 mg Capsule PO ×3 (10:42→21:23)
[2020-12-23] MEDS: ascorbic acid 500 mg Tablet PO ×2 (10:42→17:57)
[2020-12-23] MEDS: enoxaparin 60 mg/0.6 mL Syringe SUBCUT ×2 (10:42→21:23)
[2020-12-23] MEDS: vancomycin 1,000 MG in sodium chloride 0.9% 250 ML 250 MG IV (10:43)
[2020-12-23] MEDS: pantoprazole DR 40 mg Tablet PO (10:43)
[2020-12-23] MEDS: zinc gluconate 50 mg Tablet PO (10:43)
[2020-12-23] MEDS: dexamethasone 4 mg/mL INJ 6 MG IVP (10:47)
[2020-12-23] MEDS: sodium chloride 0.9% 1,000 ML 50 ML IV (12:19)
[2020-12-23 16:48] LABS: Glucose Point of Care 270 mg/dL (70-110)
--- NOTE | 2020-12-23 17:45 | P.PN_ITS ---
Subjective Subjective: Interval history: No complaints overnight. Patient lying comfortably in bed. Today morning was made to sit up in chair. Tolerated that well after that was transferred back to bed as he was feeling tired. While sitting up blood pressures went down to 88 systolic though he did not have any dizziness nausea or vomiting. On examination awake and alert. Able to have complete conversation. Denies having any difficulty in breathing. Vitals/I&O/Wt Last Vital Signs Temp 96.9 F L 12/23/20 15:55 Pulse 88 12/23/20 15:55 Resp 16 12/23/20 15:55 BP 101/70 12/23/20 15:55 Pulse Ox 95 12/23/20 15:55 12/23/20 12/23/20 12/23/20 06:59 14:59 22:59 Intake Total 50 / 1168.5 400 / 400 50 / 450 Output Total 200 / 200 Balance -150 / 968.5 400 / 400 50 / 450 Physical Exam Narrative: EXAM NARRATIVE: General: No acute distress, AO x2-3, slow to respond, mentation improving. HEENT: PERRLA, pupils bilaterally equal and reactive, pallor present, Chest: Normal vesicular breath sounds, no added sounds, equal good air entry bilaterally CVS: S1-S2 regular, soft pansystolic murmur, no tachycardia, no gallops, no rubs Abdomen: Soft, nontender, no organomegaly, bowel sounds present Neuro: No focal deficits, no facial deformity, AO x3, power 5/5 in all limbs Urinary Catheter Management^: Taylor: Cath Placed During This Visit: yes Reason for Continuing Indwelling Catheter: Other Urinary Catheter Date of Insertion: 12/21/20 Urinary Catheter Time of Insertion: 13:36 Data : 12/23/20 05:41 12/23/20 05:41 Micro: Microbiology 12/22/20 15:10 Blood Culture - Preliminary Blood NEGATIVE TO DATE 12/22/20 15:00 Blood Culture - Preliminary Blood NEGATIVE TO DATE 12/20/20 22:00 Blood Culture - Preliminary Blood 12/20/20 21:58 Blood Culture - Preliminary Blood Enterococcus species Corynebacterium species A&P Assessment and plan (1) Bacteremia due to Enterococcus: Status: Acute (2) Pulmonary embolism: Status: Acute (3) Hypoxia: Status: Acute (4) COVID-19: Status: Acute (5) CHF (congestive heart failure): Status: Acute (6) CAD (coronary artery disease): Status: Acute Qualifiers: Coronary Disease-Associated Artery/Lesion type: [place] artery [place] vs. transplanted heart: [place] heart Associated angina: without angina Qualified Code(s): I25.10 - Atherosclerotic heart disease of [place] coronary artery without angina pectoris (7) CKD (chronic kidney disease): Status: Acute (8) Physical deconditioning: Status: Acute (9) Chronic venous insufficiency of lower extremity: Status: Acute (10) Diabetic peripheral neuropathy associated with type 2 diabetes mellitus: insulin sliding scale Status: Acute (11) Chronic osteomyelitis of right foot: CRP, ESR elevated but not significantly enough to raise suspcion for acute ostemyelitis AMS, lethargy more likely related to COVID 19 pneumonia rather than acute on chronic osteo. [place] appear to stable per review of home care notes Empiric Zosyn to cover for possibility of acute on chronic flare though seems less likely. Status: Acute (12) Altered mental status: Resolving. Status: Acute Additional A&P Information Altered mental status most likely secondary to metabolic encephalopathy from Enterococcus bacteremia and COVID-19: Improving. Hypoxia: Secondary to combination of submassive pulmonary embolism, COVID-19 and component of CHF: Moderate disease. For pulmonary embolism: Lovenox 1 mg per KG body weight every 12 hourly. Patient takes Eliquis at home. As per caregiver he has been taking medications regularly. Most likely will have to switch the anticoagulation on discharge. Possibly to Xarelto. Echocardiogram rules out right heart strain. For COVID-19 pneumonia: Oxygen supplementation keeping saturation over 88%. Dexamethasone 6 mg daily. Remdesivir to finish a 5-day course. Vitamin C, zinc. Advair, Spiriva. Pulmonary toilet with incentive spirometry flutter valve. We will monitor inflammatory markers including ferritin, ESR, CRP, D-dimer, fibrinogen. If getting elevated will dose Actemra. Patient was made aware of the same and he has given verbal consent. MRSA positive, bacterial antigen, urine Legionella negative. Urine culture preliminarily negative. Continue with Zosyn for now. Add vancomycin. Enterococcus bacteremia: Unknown source. Repeat blood cultures have remained negative so far. Continue with antibiotics as above. Most likely patient will need 14 days of antibiotics since last positive blood cultures. If patient has persistent bacteremia will have to rule out other possible source of infections. Congestive heart failure: Repeat echocardiogram done yesterday shows an EF of 60% with grade 1 diastolic dysfunction, moderate aortic valve calcification without stenosis, moderate MR. EF has improved from 40 to 60% since last echo done in September 2020. Echocardiogram done yesterday does not show any RV dysfunction. Start patient on normal saline at 50 cc/h. Net euvolemic. Strict input output charting, daily weights. Hypotension: Could be secondary to sepsis along with dehydration. Goal blood pressure less than 140/90 mmHg with mean over 65. Fluid as above. Hold off on antihypertensives for now. Given on and off hypotension, hypothermia will check cortisol level. High suspicion of adrenal insufficiency. Type 2 diabetes mellitus: HbA1c 6.2. Stop OHA's. Insulin sliding scale. CAD: No active chest pain. Home dose of atorvastatin, Plavix. Continue with home dose of metoprolol. Check lipid panel. History of DVT: Continue other chronic medications. History of chronic osteomyelitis of right foot: ESR and CRP elevated but not too high. Most likely secondary COVID-19 and unlikely from osteomyelitis. CODE STATUS: Discussed with patient and patient's caregiver Ms. Aragon. Patient wants Ms. Aragon to make medical decisions for him when he is not able to. Today patient states he he is okay with chest compressions but would not want any kind of life support or ventilator support if and when needed. CODE STATUS changed to limited resuscitation. Have alerted case management for DPOA paperwork. Cardiac carb consistent diet. Famotidine for PUD prophylaxis. Full dose Lovenox will help with DVT prophylaxis PT/OT/speech evaluation. Patient's care discussed with Ms. Aragon over the phone. All the questions were answered. Attestations Medical Necessity Statement*: Requires further hospitalization for management of hypoxia secondary to COVID-19 pneumonia, pulmonary embolism, and Enterococcus bacteremia and sepsis Time Spent in Patient Care: Greater than 35 minutes (>than 50% of time spent in counselling and/or direct pt care on unit) . Coding Level of Care Code Acute Cambering Machine Operator for [facility] Fwd Diagnoses Bacteremia due to Enterococcus R78.81; B95.2 Pulmonary embolism I26.99 Hypoxia R09.02 COVID-19 U07.1 CHF (congestive heart failure) I50.9 CAD (coronary artery disease) I25.10 Coronary Disease-Associated Artery/Lesion type: [place] artery [place] vs. transplanted heart: [place] heart Associated angina: without angina CKD (chronic kidney disease) N18.9 Physical deconditioning R53.81 Chronic venous insufficiency of lower extremity I87.2 Diabetic peripheral neuropathy associated with type 2 diabetes mellitus E11.42 Chronic osteomyelitis of right foot M86.671 Altered mental status R41.82
[2020-12-23 20:48] LABS: Glucose Point of Care 205 mg/dL (70-110)
[2020-12-23] MEDS: atorvastatin 40 mg Tablet PO (21:23)
[2020-12-24] VITALS (9 sets, daily range): BP systolic 102–155; BP diastolic 51–67; PULSE 73–84; RESP 16–24; TEMP 36.4–36.8; O2SAT 90–96
[2020-12-24 02:38] LABS: Hematocrit 32.7 % (42.0-52.0); Hemoglobin 10.9 g/dL (11.7-16.6); Lymphocytes # 0.4 10^3/uL (0.8-4.8); Lymphocytes % 4.2 %; Mean Corpuscular HGB Conc 33.3 g/dL (30.0-36.0); Mean Corpuscular Hemoglobin 31.7 pg (28.0-34.0); Mean Corpuscular Volume 95.1 fL (80-94); Mean Platelet Volume 11.1 fL (7.4-10.4); Monocytes # 0.4 10^3/uL (0.2-0.9); Monocytes % 3.6 %; Neutrophils # 9.39 10^3/uL (1.8-7.7); Neutrophils % 91.5 %; Nucleated Red Blood Cells % 0 %; Platelet Count 213 10^3/cmm (130-400); Red Blood Count 3.44 10^6/uL (4.1-5.3); Red Cell Distribution Width 14.4 % (12.1-15.1); White Blood Count 10.3 10^3/uL (4.0-10.0)
[2020-12-24 03:03] LABS: Vancomycin Trough 20.3 ug/mL (10-15)
[2020-12-24 03:04] LABS: Alanine Aminotransferase 16 U/L (0-41); Albumin Level 2.6 g/dL (3.5-5.2); Alkaline Phosphatase 57 IU/L (40-130); Anion Gap 13.9 (5-19); Aspartate Amino Transferase 49 U/L (0-40); Blood Urea Nitrogen 41 mg/dL (8-23); Calcium 7.7 mg/dL (8.5-10.5); Carbon Dioxide 23 mmol/L (22-29); Chloride 108 mmol/L (98-107); Globulin 2.6 g/dL (1.3-4.6); Glucose 114 mg/dL (65-115); Osmolality Calculated 305 mOsm/kg (285-295); Sodium 142 mmol/L (136-145); Total Bilirubin 0.4 mg/dL (0.15-1.2); Total Protein 5.2 g/dL (6.6-8.7)
[2020-12-24 03:10] LABS: Potassium 2.9 mmol/L (3.5-5.1)
[2020-12-24 03:31] LABS: Cortisol Random 3.29 ug/dL (2.47-19.5)
[2020-12-24 03:32] LABS: C Reactive Protein 25.3 mg/L (0.0-4.9); Creatine Phosphokinase 252 U/L (39-308); Erythrocyte Sedimentation Rate 9 mm/hr (0-10); NT Pro B Type Natriuretic Pept 3643 pg/mL (0-450)
[2020-12-24] MEDS: piperacillin-tazobactam 3.375 GM in sodium chloride 0.9% (plus) 50 ML IV ×3 (03:40→20:02)
[2020-12-24] MEDS: remdesivir 100 MG in sodium chloride 0.9% (100 ml) 100 ML IV (05:33)
[2020-12-24] MEDS: clopidogrel 75 mg Tablet PO (05:33)
--- NOTE | 2020-12-24 06:00 | XR_ITS ---
WS: [id number] Portable AP upright chest, 12/24/2020 Clinical Data: covid Comparison: Portable chest, 04/02/2021. Findings: The patchy bilateral pulmonary opacities remain the same. There are small bilateral pleural effusions. The heart size is normal. XR/XR chest 1V portable [id number] Impression: No change in patchy bilateral pulmonary opacities and small pleural effusions.
[2020-12-24] MEDS: potassium chloride ER 20 mEq Tablet 60 MEQ PO (06:25)
[2020-12-24 06:45] LABS: Glucose Point of Care 124 mg/dL (70-110)
[2020-12-24 10:44] LABS: Glucose Point of Care 159 mg/dL (70-110)
[2020-12-24] MEDS: ferrous gluconate 324 mg Tablet PO ×2 (10:57→18:11)
[2020-12-24] MEDS: enoxaparin 60 mg/0.6 mL Syringe SUBCUT ×2 (10:57→20:02)
[2020-12-24] MEDS: pantoprazole DR 40 mg Tablet PO (10:57)
[2020-12-24] MEDS: zinc gluconate 50 mg Tablet PO (10:57)
--- NOTE | 2020-12-24 10:57 | PC.OT ---
Client refused to participate with occupational therapy today, said he might participate tomorrow.
[2020-12-24] MEDS: ascorbic acid 500 mg Tablet PO ×2 (10:58→18:11)
[2020-12-24] MEDS: benzonatate 100 mg Capsule PO ×3 (10:58→20:02)
[2020-12-24] MEDS: vancomycin 1,000 MG in sodium chloride 0.9% 250 ML 250 MG IV (10:58)
[2020-12-24] MEDS: dexamethasone 4 mg/mL INJ 6 MG IVP (11:24)
--- NOTE | 2020-12-24 13:28 | P.PN_ITS ---
Subjective Subjective: Interval history: No acute events overnight. Examination today patient sitting up in chair. Denies any nausea vomiting, headache. Asking when can he go home. Working with physical therapy. Currently on 2 L oxygen supplementation saturating 96%. Has remained afebrile. Blood pressures better. Vitals/I&O/Wt Last Vital Signs Temp 97.6 F 12/24/20 12:00 Pulse 82 12/24/20 12:00 Resp 16 12/24/20 12:00 BP 155/64 12/24/20 12:00 Pulse Ox 96 12/24/20 12:00 12/23/20 12/24/20 12/24/20 22:59 06:59 14:59 Intake Total 50 / 450 173.958 / 205.440 7707.042 / 1026.042 Output Total 400 / 400 300 / 700 Balance -350 / 50 -126.042 / -76.042 1026.042 / 1026.042 Physical Exam Narrative: EXAM NARRATIVE: General: No acute distress, AO x2-3, slow to respond, mentation improving. HEENT: PERRLA, pupils bilaterally equal and reactive, pallor present, Chest: Normal vesicular breath sounds, no added sounds, equal good air entry bilaterally CVS: S1-S2 regular, soft pansystolic murmur, no tachycardia, no gallops, no rubs Abdomen: Soft, nontender, no organomegaly, bowel sounds present Neuro: No focal deficits, no facial deformity, AO x3, power 5/5 in all limbs Urinary Catheter Management^: Taylor: Cath Placed During This Visit: yes Reason for Continuing Indwelling Catheter: Other Urinary Catheter Date of Insertion: 12/21/20 Urinary Catheter Time of Insertion: 13:36 Data : 12/24/20 02:17 12/24/20 02:17 Micro: Microbiology 12/22/20 15:10 Blood Culture - Preliminary Blood NEGATIVE TO DATE 12/22/20 15:00 Blood Culture - Preliminary Blood NEGATIVE TO DATE A&P Assessment and plan (1) Bacteremia due to Enterococcus: Status: Acute (2) Pulmonary embolism: Status: Acute (3) Hypoxia: Status: Acute (4) COVID-19: Status: Acute (5) CHF (congestive heart failure): Status: Acute (6) CAD (coronary artery disease): Status: Acute Qualifiers: Coronary Disease-Associated Artery/Lesion type: [place] artery [place] vs. transplanted heart: [place] heart Associated angina: without angina Qualified Code(s): I25.10 - Atherosclerotic heart disease of [place] coronary artery without angina pectoris (7) CKD (chronic kidney disease): Status: Acute (8) Physical deconditioning: Status: Acute (9) Chronic venous insufficiency of lower extremity: Status: Acute (10) Diabetic peripheral neuropathy associated with type 2 diabetes mellitus: insulin sliding scale Status: Acute (11) Chronic osteomyelitis of right foot: CRP, ESR elevated but not significantly enough to raise suspcion for acute ostemyelitis AMS, lethargy more likely related to COVID 19 pneumonia rather than acute on c hronic osteo. [place] appear to stable per review of home care notes Empiric Zosyn to cover for possibility of acute on chronic flare though seems less likely. Status: Acute (12) Altered mental status: Resolving. Status: Acute Additional A&P Information Altered mental status most likely secondary to metabolic encephalopathy from Enterococcus bacteremia and COVID-19: Resolved. Hypoxia: Secondary to combination of submassive pulmonary embolism, COVID-19 and component of CHF: Moderate disease. For pulmonary embolism: Lovenox 1 mg per KG body weight every 12 hourly. Patient takes Eliquis at home. As per caregiver he has been taking medications regularly. Most likely will have to switch the anticoagulation on discharge. Possibly to Xarelto. 15 mg twice daily for next 21 days followed by 20 mg daily. Echocardiogram rules out right heart strain. For COVID-19 pneumonia: Oxygen supplementation keeping saturation over 88%. Dexamethasone 6 mg daily. Remdesivir to finish a 5-day course. Vitamin C, zinc. Advair, Spiriva. Pulmonary toilet with incentive spirometry flutter valve. We will monitor inflammatory markers including ferritin, ESR, CRP, D-dimer, fibrinogen. If getting elevated will dose Actemra. Patient was made aware of the same and he has given verbal consent. MRSA positive, bacterial antigen, urine Legionella negative. Urine culture preliminarily negative. Continue with Zosyn for now. Add vancomycin. Enterococcus bacteremia: Unknown source. Repeat blood cultures have remained negative so far. Continue with antibiotics as above. Most likely patient will need 14 days of antibiotics since last positive blood cultures which will be till January 05. If patient has persistent bacteremia will have to rule out other possible source of infections. Congestive heart failure: Repeat echocardiogram done yesterday shows an EF of 60% with grade 1 diastolic dysfunction, moderate aortic valve calcification without stenosis, moderate MR. EF has improved from 40 to 60% since last echo done in September 2020. Echocardiogram done yesterday does not show any RV dysfunction. Start patient on normal saline at 50 cc/h. Net euvolemic. Strict input output charting, daily weights. Hypotension: Could be secondary to sepsis along with dehydration. Resolving. Goal blood pressure less than 140/90 mmHg with mean over 65. Fluid as above. Hold off on antihypertensives for now. Type 2 diabetes mellitus: HbA1c 6.2. Stop OHA's. Insulin sliding scale. CAD: No active chest pain. Home dose of atorvastatin, Plavix. Continue with home dose of metoprolol. Check lipid panel. History of DVT: Continue other chronic medications. History of chronic osteomyelitis of right foot: ESR and CRP elevated but not too high. Most likely secondary COVID-19 and unlikely from osteomyelitis. CODE STATUS: Discussed with patient and patient's caregiver Ms. Aragon. Patient wants Ms. Aragon to make medical decisions for him when he is not able to. Today patient states he he is okay with chest compressions but would not want any kind of life support or ventilator support if and when needed. CODE STATUS changed to limited resuscitation. Have alerted case management for DPOA paperwork. Cardiac carb consistent diet. Famotidine for PUD prophylaxis. Full dose Lovenox will help with DVT prophylaxis PT/OT/speech evaluation. Discharge planning: If patient's blood cultures remain negative we will plan to discharge patient on oral versus IV antibiotics as per sensitivities. If needing IV antibiotics will plan for PICC line. Patient would need home health. Attestations Medical Necessity Statement*: Requires further hospitalization for management of hypoxia secondary to COVID-19 pneumonia, pulmonary embolism, Enterococcus bacteremia while safe discharge planning is sought. Time Spent in Patient Care: Greater than 35 minutes (>than 50% of time spent in counselling and/or direct pt care on unit) . Coding Level of Care Code Acute Teaching Supervisor for [facility] Fwd Diagnoses Bacteremia due to Enterococcus R78.81; B95.2 Pulmonary embolism I26.99 Hypoxia R09.02 COVID-19 U07.1 CHF (congestive heart failure) I50.9 CAD (coronary artery disease) I25.10 Coronary Disease-Associated Artery/Lesion type: [place] artery [place] vs. transplanted heart: [place] heart Associated angina: without angina CKD (chronic kidney disease) N18.9 Physical deconditioning R53.81 Chronic venous insufficiency of lower extremity I87.2 Diabetic peripheral neuropathy associated with type 2 diabetes mellitus E11.42 Chronic osteomyelitis of right foot M86.671 Altered mental status R41.82
[2020-12-24] MEDS: sodium chloride 0.9% 1,000 ML 50 ML IV (14:59)
[2020-12-24 17:51] LABS: Glucose Point of Care 248 mg/dL (70-110)
[2020-12-24] MEDS: atorvastatin 40 mg Tablet PO (20:02)
[2020-12-24 21:14] LABS: Glucose Point of Care 235 mg/dL (70-110)
[2020-12-25] VITALS (10 sets, daily range): BP systolic 128–155; BP diastolic 65–72; PULSE 68–89; RESP 16–20; TEMP 36.3–36.6; O2SAT 90–96
[2020-12-25] MEDS: piperacillin-tazobactam 3.375 GM in sodium chloride 0.9% (plus) 50 ML IV (03:32)
[2020-12-25] MEDS: clopidogrel 75 mg Tablet PO (05:32)
[2020-12-25] MEDS: remdesivir 100 MG in sodium chloride 0.9% (100 ml) 100 ML IV (05:32)
[2020-12-25 07:06] LABS: Glucose Point of Care 125 mg/dL (70-110)
[2020-12-25 07:08] LABS: Basophils % 0.1 %; Hematocrit 32.1 % (42.0-52.0); Hemoglobin 10.5 g/dL (11.7-16.6); Lymphocytes # 0.4 10^3/uL (0.8-4.8); Mean Corpuscular HGB Conc 32.7 g/dL (30.0-36.0); Mean Corpuscular Hemoglobin 31.4 pg (28.0-34.0); Mean Corpuscular Volume 96.1 fl (80-94); Mean Platelet Volume 11.4 fL (7.4-10.4); Monocytes # 0.3 10^3/uL (0.2-0.9); Neutrophils # 8.03 10^3/uL (1.8-7.7); Neutrophils % 92.1 %; Nucleated Red Blood Cells % 0 %; Platelet Count 205 10^3/cmm (130-400); Red Blood Count 3.34 10^6/uL (4.1-5.3); Red Cell Distribution Width 14.7 % (12.1-15.1); White Blood Count 8.7 10^3/uL (4.0-10.0)
[2020-12-25 07:46] LABS: Alanine Aminotransferase 15 U/L (0-41); Albumin Level 2.5 g/dL (3.5-5.2); Alkaline Phosphatase 60 IU/L (40-130); Anion Gap 11.4 (5-19); Aspartate Amino Transferase 39 U/L (0-40); Blood Urea Nitrogen 24 mg/dL (8-23); Calcium 7.8 mg/dL (8.5-10.5); Carbon Dioxide 24 mmol/L (22-29); Chloride 112 mmol/L (98-107); Globulin 2.5 g/dL (1.3-4.6); Glucose 104 mg/dL (65-115); Osmolality Calculated 302 mOsm/kg (285-295); Potassium 3.4 mmol/L (3.5-5.1); Sodium 144 mmol/L (136-145); Total Bilirubin 0.5 mg/dL (0.15-1.2)
[2020-12-25] MEDS: enoxaparin 60 mg/0.6 mL Syringe SUBCUT ×2 (08:36→22:51)
[2020-12-25] MEDS: pantoprazole DR 40 mg Tablet PO (08:37)
[2020-12-25] MEDS: ferrous gluconate 324 mg Tablet PO ×2 (08:37→18:25)
[2020-12-25] MEDS: benzonatate 100 mg Capsule PO ×3 (08:37→22:50)
[2020-12-25] MEDS: zinc gluconate 50 mg Tablet PO (08:37)
[2020-12-25] MEDS: ascorbic acid 500 mg Tablet PO ×2 (08:37→18:25)
[2020-12-25] MEDS: dexamethasone 4 mg/mL INJ 6 MG IVP (08:37)
[2020-12-25 08:48] LABS: C Reactive Protein 19.4 mg/L (0.0-4.9); NT Pro B Type Natriuretic Pept 4920 pg/mL (0-450)
--- NOTE | 2020-12-25 08:56 | PC.NURSE ---
Medications Medications given, pt did have slight difficulty swallowing whole meds. Sits up on side of bed to take meds then quickly lays back down.
[2020-12-25] MEDS: metoprolol tartrate 25 mg Tablet PO ×2 (10:44→22:50)
[2020-12-25] MEDS: FUROsemide 40 mg Tablet PO (10:44)
[2020-12-25] MEDS: lisinopril 5 mg Tablet PO (10:45)
[2020-12-25] MEDS: linezolid 600 mg Tablet PO ×2 (10:45→22:50)
[2020-12-25] MEDS: potassium chloride ER 20 mEq Tablet 40 MEQ PO (10:45)
[2020-12-25 12:10] LABS: Glucose Point of Care 177 mg/dL (70-110)
--- NOTE | 2020-12-25 14:46 | P.PN_ITS ---
Subjective Subjective: Interval history: No acute events. Patient has remained hemodynamically stable. Lying comfortably in bed. Denies any nausea vomiting, headache. A lot more awake today. On 5 L oxygen supplementation today. Documented urine output in last 24 hours upto 1000 cc. Vitals/I&O/Wt Last Vital Signs Temp 97.5 F L 12/25/20 12:00 Pulse 72 12/25/20 12:00 Resp 17 12/25/20 12:00 BP 133/65 12/25/20 12:00 Pulse Ox 96 12/25/20 12:00 12/24/20 12/25/20 12/25/20 22:59 06:59 14:59 Intake Total 780 / 1806.042 50 / 5437.230 7175 / 1150 Output Total 675 / 675 300 / 975 550 / 550 Balance 105 / 1131.042 -250 / 881.042 600 / 600 Physical Exam Narrative: EXAM NARRATIVE: General: No acute distress, AO x2-3, slow to respon d, mentation improving. HEENT: PERRLA, pupils bilaterally equal and reactive, pallor present, Chest: Normal vesicular breath sounds, bilateral fine crackles in the lower zone, equal good air entry CVS: S1-S2 regular, soft pansystolic murmur, no tachycardia, no gallops, no rubs Abdomen: Soft, nontender, no organomegaly, bowel sounds present Neuro: No focal deficits, no facial deformity, AO x3, power 5/5 in all limbs Urinary Catheter Management^: Taylor: Cath Placed During This Visit: yes Reason for Continuing Indwelling Catheter: Other Urinary Catheter Date of Insertion: 12/21/20 Urinary Catheter Time of Insertion: 13:36 Data : 12/25/20 06:34 12/25/20 06:34 Micro: Microbiology 12/20/20 22:00 Blood Culture - Final Blood Enterococcus faecium Corynebacterium species Staphylococcus sp coag neg 12/20/20 21:58 Blood Culture - Final Blood Enterococcus faecium Corynebacterium species Staphylococcus sp coag neg A&P Assessment and plan (1) Bacteremia due to Enterococcus: Status: Acute (2) Pulmonary embolism: Status: Acute (3) Hypoxia: Status: Acute (4) COVID-19: Status: Acute (5) CHF (congestive heart failure): Status: Acute (6) CAD (coronary artery disease): Status: Acute Qualifiers: Coronary Disease-Associated Artery/Lesion type: [place] artery [place] vs. transplanted heart: [place] heart Associated angina: without angina Qualified Code(s): I25.10 - Atherosclerotic heart disease of [place] coronary artery without angina pectoris (7) CKD (chronic kidney disease): Status: Acute (8) Physical deconditioning: Status: Acute (9) Chronic venous insufficiency of lower extremity: Status: Acute (10) Diabetic peripheral neuropathy associated with type 2 diabetes mellitus: insulin sliding scale Status: Acute (11) Chronic osteomyelitis of right foot: CRP, ESR elevated but not significantly enough to raise suspcion for acute ostemyelitis AMS, lethargy more likely related to COVID 19 pneumonia rather than acute on chronic osteo. [place] appear to stable per review of home care notes Empiric Zosyn to cover for possibility of acute on chronic flare though seems less likely. Status: Acute (12) Altered mental status: Resolving. Status: Acute Additional A&P Information Altered mental status most likely secondary to metabolic encephalopathy from Enterococcus bacteremia and COVID-19: Resolved. Hypoxia: Secondary to combination of submassive pulmonary embolism, COVID-19 and component of CHF: Moderate disease. For pulmonary embolism: Continue with Lovenox 1 mg/kg body weight every 12 hourly. As per patient's caregiver he ran out of Eliquis 3 weeks ago because he could not afford it. Case discussed with case management. Have applied for financial assistance through which patient should get it at a lower [place]. Caregiver agreeable. Will discharge on Eliquis 10 mg twice daily for 7 days followed by 5 mg twice daily. For COVID-19 pneumonia: Oxygen supplementation keeping saturation over 88%. Dexamethasone 6 mg daily. Remdesivir to finish a 5-day course. Vitamin C, zinc. Advair, Spiriva. Pulmonary toilet with incentive spirometry flutter valve. We will monitor inflammatory markers including ferritin, ESR, CRP, D-dimer, fibr inogen. If getting elevated will dose Actemra. Patient was made aware of the same and he has given verbal consent. MRSA positive, Legionella, bacterial antigen, urine culture negative. Enterococcus bacteremia: Unknown source. Today with same blood culture also positive for coag negative staph. Repeat blood cultures so far negative. Antibiotics changed to linezolid 600 mg twice daily as per culture sensitivities. Patient would need antibiotics for 2 weeks since last positive blood culture w hich will be 2 hours. Congestive heart failure: Repeat echocardiogram done yesterday shows an EF of 60% with grade 1 diastolic dysfunction, moderate aortic valve calcification without stenosis, moderate MR. EF has improved from 40 to 60% since last echo done in September 2020. Echocardiogram done yesterday does not show any RV dysfunction. Patient mildly hypervolemic today. Stop IV fluids. Lasix 40 mg oral daily. Strict input output charting, daily weights. Hypotension: Could be secondary to sepsis along with dehydration. Resolved. Goal blood pressure less than 140/90 mmHg with mean over 65. Blood pressure is elevated now. Start on home dose of metoprolol and lisinopril. Will uptitrate depending on blood pressure response and extremity 4 hours. Type 2 diabetes mellitus: HbA1c 6.2. Stop OHA's. Insulin sliding scale. CAD: No active chest pain. Home dose of atorvastatin, Plavix. Continue with home dose of metoprolol. Check lipid panel. History of DVT: Continue other chronic medications. History of chronic osteomyelitis of right foot: ESR and CRP elevated but not too high. Most likely secondary COVID-19 and unlikely from osteomyelitis. CODE STATUS: Discussed with patient and patient's caregiver Ms. Aragon. Patient wants Ms. Aragon to make medical decisions for him when he is not able to. Today patient states he he is okay with chest compressions but would not want any kind of life support or ventilator support if and when needed. CODE STATUS changed to limited resuscitation. Have alerted case management for DPOA paperwork. Cardiac carb consistent diet. Famotidine for PUD prophylaxis. Full dose Lovenox will help with DVT prophylaxis PT/OT/speech evaluation. Discharge planning: Patient remains hemodynamically stable with the next 84 hours. Can plan to discharge tomorrow after completion of remdesivir course on oral linezolid for 14 days. Patient will most likely require home oxygen on discharge. Attestations Medical Necessity Statement*: Requires further hospitalization for management of Enterococcus bacteremia, hypoxia secondary to COVID-19 pneumonia and pulmona ry embolism. Time Spent in Patient Care: Greater than 35 minutes (>than 50% of time spent in counselling and/or direct pt care on unit) . Coding Level of Care Code Acute [employer] Mixer for [facility] Fwd Diagnoses Bacteremia due to Enterococcus R78.81; B95.2 Pulmonary embolism I26.99 Hypoxia R09.02 COVID-19 U07.1 CHF (congestive heart failure) I50.9 CAD (coronary artery disease) I25.10 Coronary Disease-Associated Artery/Lesion type: [place] artery [place] vs. transplanted heart: [place] heart Associated angina: without angina CKD (chronic kidney disease) N18.9 Physical deconditioning R53.81 Chronic venous insufficiency of lower extremity I87.2 Diabetic peripheral neuropathy associated with type 2 diabetes mellitus E11.42 Chronic osteomyelitis of right foot M86.671 Altered mental status R41.82
[2020-12-25 17:40] LABS: Glucose Point of Care 211 mg/dL (70-110)
[2020-12-25 22:46] LABS: Glucose Point of Care 289 mg/dL (70-110)
[2020-12-25] MEDS: atorvastatin 40 mg Tablet PO (22:50)
[2020-12-26] VITALS (8 sets, daily range): BP systolic 124–147; BP diastolic 68–87; PULSE 64–72; RESP 16–17; TEMP 36.4–36.9; O2SAT 80–96
[2020-12-26] MEDS: clopidogrel 75 mg Tablet PO (05:00)
[2020-12-26] MEDS: remdesivir 100 MG in sodium chloride 0.9% (100 ml) 100 ML IV (05:01)
--- NOTE | 2020-12-26 06:00 | XRR_ITS ---
PROCEDURE INFORMATION: Exam: XR Chest Exam date and time: 12/26/2020 6:00 AM Age: 80 years old Clinical indication: Shortness of breath; Additional info: Covid TECHNIQUE: Imaging protocol: XR of the chest. Views: 1 view. Total images: 1 COMPARISON: CR XR chest 1V portable [id number] 12/24/2020 7:12 AM FINDINGS: Lungs: Interval worsening of left pleuroparenchymal disease. Stable right pleuroparenchymal disease. Pleural spaces: No pneumothorax. No pneumothorax. Heart/Mediastinum: Heart size is stable when compared to the prior exam. Bones/joints: Osseous structures are unchanged from the prior exam. XR/XR chest 1V portable [id number] IMPRESSION: 1. Interval worsening of left pleuroparenchymal disease. 2. Stable right pleuroparenchymal disease.
[2020-12-26 06:47] LABS: Glucose Point of Care 101 mg/dL (70-110)
[2020-12-26 07:10] LABS: C Reactive Protein 19.4 mg/L (0.0-4.9); NT Pro B Type Natriuretic Pept 8646 pg/mL (0-450)
[2020-12-26 08:27] LABS: Erythrocyte Sedimentation Rate 7 mm/hr (0-10)
[2020-12-26] MEDS: ferrous gluconate 324 mg Tablet PO ×2 (09:13→17:25)
[2020-12-26] MEDS: ascorbic acid 500 mg Tablet PO ×2 (09:13→17:25)
[2020-12-26] MEDS: linezolid 600 mg Tablet PO (09:13)
[2020-12-26] MEDS: metoprolol tartrate 25 mg Tablet PO (09:13)
[2020-12-26] MEDS: zinc gluconate 50 mg Tablet PO (09:13)
[2020-12-26] MEDS: pantoprazole DR 40 mg Tablet PO (09:14)
[2020-12-26] MEDS: dexamethasone 4 mg/mL INJ 6 MG IVP (09:14)
[2020-12-26] MEDS: benzonatate 100 mg Capsule PO ×2 (09:14→14:27)
[2020-12-26] MEDS: enoxaparin 60 mg/0.6 mL Syringe SUBCUT (09:14)
--- NOTE | 2020-12-26 10:40 | PM.DCS ---
Discharge Providers Date of Admission: 12/21/20 06:30 Date of Discharge: December 26, 2020 Attending Provider at Admission: Kanika Chase MD Attending Provider at Discharge: Beto Elena MD Primary Care Provider: Precious Coelho DO Diagnoses at Discharge Discharge Diagnosis (1) Bacteremia due to Enterococcus: Status: Acute (2) Pulmonary embolism: Status: Acute (3) Hypoxia: Status: Acute (4) COVID-19: Status: Acute (5) CHF (congestive heart failure): Status: Acute Permanent problem details: Echocardiogram the 2020 showed an EF of 40% with grade 1 diastolic dysfunction, aortic sclerosis (6) CAD (coronary artery disease): Status: Acute Qualifiers: Coronary Disease-Associated Artery/Lesion type: [place] artery [place] vs. transplanted heart: [place] heart Associated angina: without angina Qualified Code(s): I25.10 - Atherosclerotic heart disease of [place] coronary artery without angina pectoris (7) CKD (chronic kidney disease): Status: Acute (8) Physical deconditioning: Status: Acute (9) Chronic venous insufficiency of lower extremity: Status: Acute (10) Diabetic peripheral neuropathy associated with type 2 diabetes mellitus: Status: Acute (11) Chronic osteomyelitis of right foot: Status: Acute (12) Altered mental status: Status: Acute Reason for Visit Reason for Visit: FEVER Hospital Course Hospital Course Syed Whitt is a 80 year old male history of hypertension, diabetes, peripheral arterial disease, chronic LE ulcers heart failure with reduced action fraction 20%-40% , DVT/PE here today with chief complaint of generalized weakness confusion and decreased p.o. intake at [facility] rt past week, Patient unable to partcipate in history due to poor mentation. Unable to reach family at listed number. Per review of home care visit notes, patient has had decline in functional status at least over the past week to 10 days, does appear deconditioned more chronically as well. w/up today notable for COVID 19 infection, 02 requirement at 3-4lpm. Unknown if he on home 02, on last admission he was on 2lpm. He is under the hospital for further work-up and management of altered mental status, hypoxia. He was started on treatment with IV remdesivir, dexamethasone elevation treatment and vitamin C, zinc for COVID-19 pneumonia. During hospitalization he required minimal oxygen supplementation up to 2 L. He was also found to have pulmonary embolism on CTA done because of persistent hypoxia and history of DVT. Pulmonary embolism was found to be submassive without any right heart strain. Echocardiogram was done which ruled out right heart strain but showed EF has improved from 40% to 60% currently with grade 1 diastolic dysfunction. On further interview with patient's healthcare proxy and caregiver Ms. Aragon it was noted that he has not been taking his Eliquis for last 3 weeks as he ran out of the medication due to financial reasons. commercial lines manager was involved and patient financial services manager application was filled out. Patient was restarted on full dose anticoagulation during hospitalization with Lovenox and has been transitioned to oral Eliquis on discharge. Patient has been provided a supply for 3-month and has been asked to follow-up with his primary care provider for further medications. During hospitalization he was also found to have blood culture positive for Enterococcus, Corynebacterium and coag negative staph on admission for which she was started on broad-spectrum antibiotics which were later changed to linezolid as per culture sensitivities. Repeat blood cultures have been negative. He has been advised to continue taking linezolid for next 2 weeks. On admission patient was found to be mildly hypotensive most likely because of dehydration, COVID-19 pneumonia, pulmonary embolism and sepsis from bacteremia which was treated with IV hydration. Patient responded well to the treatment and eventually his antihypertensives were restarted. Patient was found to be severely physically deconditioned. PT/OT evaluation was done. Patient states at baseline he is usually wheelchair-bound but can walk around with walker though he does not like to do much. Patient responded to treatment and is currently back to baseline. Swallow evaluation was done and his diet was changed accordingly to prevent aspiration pneumonia. Currently patient is doing well with dysphagia to ground diet. CODE STATUS and goals of care were discussed in detail with patient and patient's caregiver. Patient states he does not want to be attached to life support but is okay with chest compressions. Patient is DO NOT INTUBATE but is okay with resuscitation so CODE STATUS was changed to limited resuscitation. Patient is been discharged in hemodynamically stable condition with advised to follow-up with his primary care provider within next 1 week. He is advised to continue taking linezolid for next 2 weeks. Patient is advised to continue taking Eliquis 10 mg twice daily for next 7 days followed by 5 mg twice daily. He is advised to follow-up with his primary care provider regularly for continuation of medication. He is also advised to make sure that he is on anticoagulation either with Eliquis or Xarelto or with Pradaxa indefinitely for life. Advised to take inhalation treatment with Advair and Spiriva daily. Advised to continue working with incentive spirometry and flutter valve while at home. Advised to continue taking dexamethasone 6 mg for next 10 days. Can take his COVID-19 vaccination in 3 months. Advised to continue following social distancing and isolation protocol for next 10 days. Advised to come back to the ER if fever of more than 101 Fahrenheit, more difficulty breathing than usual or requiring higher oxygen supplementation. Physical Exam Narrative: EXAM NARRATIVE: General: No acute distress, AO x3, slow to respond, mentation improving. HEENT: PERRLA, pupils bilaterally equal and reactive, pallor present, Chest: Normal vesicular breath sounds, bilateral fine crackles in the lower zone, equal good air entry CVS: S1-S2 regular, soft pansystolic murmur, no tachycardia, no gallops, no rubs Abdomen: Soft, nontender, no organomegaly, bowel sounds present Neuro: No focal deficits, no facial deformity, AO x3, power 5/5 in all limbs Urinary Catheter Management^: Taylor: Cath Placed During This Visit: yes Reason for Continuing Indwelling Catheter: Accurate Measurement of Urinary Output in Critically Ill Patients Urinary Catheter Date of Insertion: 12/21/20 Urinary Catheter Time of Insertion: 13:36 Discharge Data Data Completed and Pending: Completed Studies During Hospitalization Category Date Time Status CT angio chest PE protcl [id number] Rout ine Cat Scan 12/21/20 15:[address] head wo con* 7 0450 Urgent Cat Scan 12/20/20 21:04 Completed XR chest 1V rain ble 78141 Q48H Exams 12/22/20 06:00 Completed XR chest 1V rain ble 86237 Q48H Exams 12/24/20 06:00 Completed XR chest 1V rain ble 77099 Q48H Exams 12/26/20 06:00 Completed XR chest 1V rain ble 57288 Stat Exams 12/20/20 21:02 Completed XR foot RT 2V 736 20 Urgent Exams 12/20/20 21:05 Completed CV. echo complete * [id number] Routine Ultrasound 12/22/20 04:00 Completed Pending at discharge Category Date Time Status Blood Culture Sta t Lab 12/22/20 15:10 Results Urine Culture Sta t Lab 12/21/20 00:50 Results Labs from last 24 hours 12/26/20 12/26/20 12/26/20 06:21 06:14 06:14 ESR 7 POC Glucose 101 C-Reactive Protein 19.4 H NT-Pro-B Natriuret Pep 8646 H 12/25/20 12/25/20 12/25/20 20:39 17:20 12:02 ESR POC Glucose 289 H 211 H 177 H C-Reactive Protein NT-Pro-B Natriuret Pep Addt'l Data from Hospital Stay: Laboratory Results WBC 8.7 10^3/uL (4.0- 10.0) 12/25/20 06:34 RBC 3.34 10^6/uL (4.1 -5.3) L 12/25/20 06:34 Hgb 10.5 g/dL (11.7-1 6.6) L 12/25/20 06:34 Hct 32.1 % (42.0-52.0 ) L 12/25/20 06:34 MCV 96.1 fl (80-94) H 12/25/20 06:34 MCH 31.4 pg (28.0-34. 0) 12/25/20 06:34 MCHC 32.7 g/dL (30.0-3 6.0) 12/25/20 06:34 RDW 14.7 % (12.1-15.1 ) 12/25/20 06:34 Plt Count 205 10^3/cmm (130 -400) 12/25/20 06:34 MPV 11.4 fL (7.4-10.4 ) H 12/25/20 06:34 Neut % (Auto) 92.1 % 12/25/20 06:34 Lymph % (Auto) 4.0 % 12/25/20 06:34 [place] % (Auto) 3.0 % 12/25/20 06:34 Eos % (Auto) 0.0 % 12/25/20 06:34 Baso % (Auto) 0.1 % 12/25/20 06:34 Neut # (Auto) 8.03 10^3/uL (1.8 -7.7) H 12/25/20 06:34 Lymph # (Auto) 0.4 10^3/uL (0.8- 4.8) L 12/25/20 06:34 [place] # (Auto) 0.3 10^3/uL (0.2- 0.9) 12/25/20 06:34 Eos # (Auto) 0.0 10^3/uL (0.0- 0.8) 12/25/20 06:34 Baso # (Auto) 0.0 10^3/uL (0.0- 0.1) 12/25/20 06:34 Nucleated RBC % (a uto) 0 % 12/25/20 06:34 Nucleated RBCs # 0.0 /100WBC 12/25/20 06:34 Poikilocytosis 1+ H 12/20/20 22:00 Anisocytosis 1+ H 12/20/20 22:00 Ovalocytes 1+ H 12/20/20 22:00 [place] Cells 1+ H 12/20/20 22:00 Acanthocytes (Spur ) Trace 12/20/20 22:00 ESR 7 mm/hr (0-10) 12/26/20 06:14 APTT 98.3 SECONDS (23. 9-36.7) H 12/22/20 15:00 D-Dimer 1.82 ug/mIFEU (0- 0.59) H 12/22/20 00:40 Sodium 144 mmol/L (136-1 45) 12/25/20 06:34 Potassium 3.4 mmol/L (3.5-5 .1) L 12/25/20 06:34 Chloride 112 mmol/L (98-10 7) H 12/25/20 06:34 Carbon Dioxide 24 mmol/L (22-29) 12/25/20 06:34 Anion Gap 11.4 (5-19) 12/25/20 06:34 BUN 24 mg/dL (8-23) H 12/25/20 06:34 Creatinine 0.8 mg/dL (0.7-1. 2) 12/25/20 06:34 GFR Calculation Not Reportable 12/25/20 06:34 Glucose 104 mg/dL (65-115 ) 12/25/20 06:34 POC Glucose 101 mg/dL (70-110 ) 12/26/20 06:21 Estimat Average Gl ucose 131 12/22/20 00:40 Hemoglobin A1c 6.2 % (4.0-6.0) H 12/22/20 00:40 Calculated Osmolal ity 302 mOsm/kg (285- 295) H 12/25/20 06:34 Lactic Acid 2.0 mmol/L (0.5-2 .2) 12/20/20 22:00 Calcium 7.8 mg/dL (8.5-10 .5) L 12/25/20 06:34 Iron 29 ug/dL (59-158) L 12/21/20 07:29 TIBC 169 mcg/dl 12/21/20 07:29 % Saturation 17.1 % (20-50) L 12/21/20 07:29 Unsat Iron Binding 140 ug/dL (112-34 7) 12/21/20 07:29 Ferritin 2185 ng/mL (30-40 0) H 12/22/20 00:40 Total Bilirubin 0.5 mg/dL (0.15-1 .2) 12/25/20 06:34 AST 39 U/L (0-40) 12/25/20 06:34 ALT 15 U/L (0-41) 12/25/20 06:34 Alkaline Phosphata se 60 IU/L (40-130) 12/25/20 06:34 Lactate Dehydrogen ase 498 U/L (135-225) H 12/22/20 00:40 Creatine Kinase 252 U/L (39-308) 12/24/20 02:17 Troponin T Baselin e 34 ng/L (0-15) H 12/20/20 22:00 Troponin T 120 Min [place] 31.45 ng/L (0-15) H 12/21/20 00:30 Delta Troponin T -2.55 ABS# (0-10) L 12/21/20 00:30 Troponin T Hi Sens 6Hr 47.93 ng/L (0-15) H 12/21/20 07:29 Troponin T Hi Sens 6Hr Delta -13.93 ng/L (0-12 ) L 12/21/20 07:29 C-Reactive Protein 19.4 mg/L (0.0-4. 9) H 12/26/20 06:14 NT-Pro-B Natriuret Pep 8646 pg/mL (0-450 ) H 12/26/20 06:14 Total Protein 5.0 g/dL (6.6-8.7 ) L 12/25/20 06:34 Albumin 2.5 g/dL (3.5-5.2 ) L 12/25/20 06:34 Globulin 2.5 g/dL (1.3-4.6 ) 12/25/20 06:34 Triglycerides 64 mg/dL (0-150) 12/22/20 00:40 Cholesterol 96 mg/dL (0-200) 12/22/20 00:40 LDL Cholesterol, C alc 53 mg/dL (50-129) 12/22/20 00:40 Total VLDL Cholest james 13 mg/dL (0-30) 12/22/20 00:40 HDL Cholesterol 30 mg/dL (60-100) L 12/22/20 00:40 Cholesterol/HDL Ra concha 3.20 mg/dL (1.0-5 .00) 12/22/20 00:40 Procalcitonin 0.09 ng/mL (0-0.5 ) 12/22/20 00:40 TSH 0.30 uIU/mL (0.27 -4.20) 12/21/20 07:29 Random Cortisol 3.29 ug/dL (2.47- 19.5) 12/24/20 02:17 Urine Color Yellow (Yellow) 12/21/20 00:50 Urine Appearance Clear (CLEAR) 12/21/20 00:50 Urine pH 5 (5-7) 12/21/20 00:50 Ur Specific Gravit y 1.015 (1.005-1.0 30) 12/21/20 00:50 Urine Protein 1+ (Negative) H 12/21/20 00:50 Urine Glucose (UA) Norm (Normal) 12/21/20 00:50 Urine Ketones Negative (Negati ve) 12/21/20 00:50 Urine Blood 3+ (Negative) H 12/21/20 00:50 Urine Nitrate Negative (Negati ve) 12/21/20 00:50 Urine Bilirubin Neg (Negative) 12/21/20 00:50 Urine Urobilinogen Norm mg/dL (Negat julian) 12/21/20 00:50 Ur Leukocyte Alethea ase Negative (Negati ve) 12/21/20 00:50 Urine RBC 0-4 /hpf (0-2) H 12/21/20 00:50 Urine WBC 0-4 /hpf (0-5) H 12/21/20 00:50 Ur Squamous Epith Cells 0-4 /hpf (0-5) H 12/21/20 00:50 Amorphous Sediment 4+ /hpf 12/21/20 00:50 Urine Bacteria Trace /hpf (NONE) 12/21/20 00:50 Vancomycin Trough 20.3 ug/mL (10-15 ) H 12/24/20 02:17 Urine Opiates Scre en Negative ng/mL (N egative) 12/21/20 16:24 Ur Barbiturates Sc reen Negative ng/mL (N egative) 12/21/20 16:24 Ur Phencyclidine S crn Negative ng/mL (N egative) 12/21/20 16:24 Ur Amphetamines Sc reen Negative ng/mL (N egative) 12/21/20 16:24 U Benzodiazepines Scrn Negative ng/mL (N egative) 12/21/20 16:24 Urine Cocaine Scre en Negative ng/mL (N egative) 12/21/20 16:24 U Marijuana (THC) Screen Negative ng/mL (N egative) 12/21/20 16:24 SARS-CoV-2 Ag (Rap id) Positive (Negati ve) H 12/21/20 00:[address] 12/20/20 21:04 IMPRESSION: 1. No acute intracranial abnormality. 2. Stable mild prominence of the lateral ventricles and temporal horns. This may relate to central volume loss but normal pressure hydrocephalus is not excluded. 3. Evaluation is limited by motion artifact. Radiation Dose CTDIVOL = (mGy): DLP = 1214.72 (mGy-cm) Foot X-Ray 12/20/20 21:05 IMPRESSION: 1. Increased cortical irregularity along the plantar aspect of the 5th metatarsal amputation stump. This is suspicious for chronic versus acute osteomyelitis. Consider further evaluation with MRI. Chest CTA 12/21/20 15:21 IMPRESSION: 1. Large embolus in the distal left main pulmonary artery extending into the segmental pulmonary arteries measuring 12 x 15 mm. Additional smaller left-sided pulmonary emboli more prominent in the left upper and lower lobe. No definite visualized right-sided emboli although images significantly degraded by motion. 2. Bilateral hazy groundglass infiltrates more prominent about the hilum and both lower lobes compatible with COVID 19 pneumonia. 3. Cardiomegaly. No evidence of right ventricular dysfunction. 4. Small esophageal hiatal hernia. Notified Beto Elena MD at 12/21/2020 4:23 PM. Chest X-Ray 12/26/20 06:00 IMPRESSION: 1. Interval worsening of left pleuroparenchymal disease. 2. Stable right pleuroparenchymal disease. Microbiology 12/20/20 22:00 Blood Blood Culture - Final Enterococcus faecium Corynebacterium species Staphylococcus sp coag neg 12/20/20 21:58 Blood Blood Culture - Final Enterococcus faecium Corynebacterium species Staphylococcus sp coag neg 12/22/20 15:10 Blood Blood Culture - Preliminary NEGATIVE TO DATE 12/22/20 15:00 Blood Blood Culture - Preliminary NEGATIVE TO DATE 12/21/20 00:50 Urine Catheterized Urine Culture - Preliminary 12/21/20 00:50 Urine Catheterized Legionella Urinary Antigen - Final 12/21/20 00:50 Urine Kidney Bacterial Antigens - Final 12/21/20 10:06 Nose MRSA Culture - Final Echocardiogram: CONCLUSIONS 1-Normal left ventricular cavity size. Mildly decreased left ventricular systolic function. Left ventricular ejection fraction is estimated at 60 %. There appeared to be apical hypokinesis.Grade I/IV diastolic dysfunction (abnormal relaxation filling pattern), normal to mildly elevated filling pressures. 2-Moderate aortic valve calcification. No aortic valve stenosis. No aortic valve regurgitation. 3-Moderately thickened mitral valve. No mitral valve stenosis. Moderate mitral valve regurgitation. 4-There is no pericardial effusion. 5-Pulmonary artery systolic pressure is within normal limits. 6-Right atrial pressure is around 5 mm of mercury. 7-When compared to the prior echocardiogram dated September 16, 2020 left ventricle ejection fraction improved from 40% to 60% now. Vitals: Last Vital Signs Temp 97.5 F L 12/26/20 08:00 Pulse 68 12/26/20 09:02 Resp 17 12/26/20 08:58 BP 135/68 12/26/20 08:00 Pulse Ox 92 12/26/20 08:58 Discharge Plan Discharge Patient Disposition: Home Condition: Stable Prescriptions: New Advair Diskus 250-50 mcg/dose Blister With Device 1 puff inhalation BID.RESPIRATORY 14 Days Qty: 28 RF: 0 Vitamin C 500 mg Tablet 500 mg PO BID 30 Days Qty: 60 RF: 0 benzonatate 100 mg Capsule 100 mg PO TID PRN (Reason: cough) Qty: 10 RF: 0 zinc gluconate 50 mg Tablet 50 mg PO DAILY 30 Days Qty: 30 RF: 0 Spiriva with HandiHaler 18 mcg Capsule, W/Inhalation Device 18 mcg inhalation DAILY.RESPIRATORY 14 Days Qty: 14 RF: 0 ferrous gluconate 324 mg (37.5 mg iron) Tablet 324 mg PO BIDWM 30 Days Qty: 60 RF: 0 Eliquis DVT-PE Treat 30D Start 5 mg (74 tabs) tablets,dose pack See Rx Instructions .ROUTE .COMPLEX Qty: 74 RF: 0 linezolid 600 mg tablet 600 mg PO BID 10 Days Qty: 20 RF: 0 Continued clopidogrel 75 mg tablet 75 mg PO QAM RF: 0 metformin 500 mg tablet 500 mg PO DAILY RF: 0 glimepiride 4 mg tablet 2 mg PO DAILY RF: 0 omeprazole 20 mg tablet,delayed release (DR/EC) 20 mg PO DAILY RF: 0 Klor-Con 20 mEq packet 20 meq PO DAILY Qty: 30 RF: 3 atorvastatin 40 mg tablet 40 mg PO QAM RF: 0 lisinopril 5 mg tablet 5 mg PO DAILY RF: 0 Glucosamine 500 mg Tablet 500 mg PO DAILY RF: 0 furosemide 20 mg tablet 40 mg PO DAILY RF: 0 Changed metoprolol tartrate 25 mg tablet 25 mg PO BIDWMEAL Qty: 0 RF: 0 Discontinued Eliquis 5 mg tablet 5 mg PO BID@0900,2100 Qty: 180 RF: 3 amoxicillin-pot clavulanate [Augmentin] 500-125 mg tablet 1 tab PO DAILY Qty: 14 RF: 0 Discharge Orders: Discharge Order (Routine); Ordered 12/26/20 Ordered By: Beto Elena Referrals: Precious Coelho DO [Primary Care Provider] - 4-7 days Discharge Diet: As Directed Discharge Activity: Resume usual activity and Increase activity as tolerated Patient Instructions: Opioid Safety Activity Restrictions/Additional Instructions: follow-up with his primary care provider within next 1 week. He is advised to continue taking linezolid for next 2 weeks. Patient is advised to continue taking Eliquis 10 mg twice daily for next 7 days followed by 5 mg twice daily. He is advised to follow-up with his primary care provider regularly for continuation of medication. He is also advised to make sure that he is on anticoagulation either with Eliquis or Xarelto or with Pradaxa indefinitely for life. Advised to take inhalation treatment with Advair and Spiriva daily. Advised to continue working with incentive spirometry and flutter valve while at home. Advised to continue taking dexamethasone 6 mg for next 10 days. Can take his COVID-19 vaccination in 3 months. Advised to continue following social distancing and isolation protocol for next 10 days. Advised to come back to the ER if fever of more than 101 Fahrenheit, more difficulty breathing than usual or requiring higher oxygen supplementation. Patient is to continue taking dysphagia level 2 ground diet to avoid aspiration. This has been discussed in detail with patient's primary care provider and caregiver. Discharge Attestations Time Spent in Discharge Care*: greater than 30 min Specific Discharge Activities: educating patient, educating and/or supporting family/caregiver, discussing with pcp/other providers, discussing with egg caser/social workers/dc planners, documenting/other paperwork and evaluating patient/reviewing data Status at Discharge: Cognitive status at discharge: mildly impaired cognition, Behavioral status at discharge: cooperative, Functional status at discharge: other assisted ambulation Overall status at discharge: patient is back to baseline Quality Metrics Clinical Quality Measures During this hospital stay, did patient experience: None Coding Level of Care Code Acute g DC note Diagnoses Bacteremia due to Enterococcus R78.81; B95.2 Pulmonary embolism I26.99 Hypoxia R09.02 COVID-19 U07.1 CHF (congestive heart failure) I50.9 CAD (coronary artery disease) I25.10 Coronary Disease-Associated Artery/Lesion type: [place] artery [place] vs. transplanted heart: [place] heart Associated angina: without angina CKD (chronic kidney disease) N18.9 Physical deconditioning R53.81 Chronic venous insufficiency of lower extremity I87.2 Diabetic peripheral neuropathy associated with type 2 diabetes mellitus E11.42 Chronic osteomyelitis of right foot M86.671 Altered mental status R41.82
[2020-12-26 11:03] LABS: Glucose Point of Care 166 mg/dL (70-110)
--- NOTE | 2020-12-26 11:56 | PC.SOCIAL ---
IM follow up explained and copy provided. Pt verbalized understanding.
[2020-12-26 17:52] LABS: Glucose Point of Care 328 mg/dL (70-110)
--- NOTE | 2020-12-26 20:07 | PC.NURSE ---
Nurse and TRACK OILER assisted Patient off the floor by wheel chair with discharge paperwork and all personal belongings to hospital exit. Patient assisted into caregiver Margo's personal vehicle.
--- NOTE | 2020-12-30 09:11 | PC.SOCIAL ---
discharge follow up call made, multiple calls, unsuccessful.
--- NOTE | 2020-12-30 09:12 | PC.SOCIAL ---
discharge follow up call made, no answer, message left
== END 2020-12-26 20:00 | disposition home or self-care (01) | DRG 177 ==
LOC: ER 12-21 06:24 → ER IP 12-21 06:33 → MEDSURG 12-21 08:14
PROVIDERS: Emergency Medicine; Admitting Provider Student in an Organized Health Care Education/Training Program; Emergency Provider Family Medicine; PCP Family Medicine; Visit Provider Student in an Organized Health Care Education/Training Program
DX: U07.1 COVID-19 (principal); J12.82 Pneumonia due to coronavirus disease 2019; G93.41 Metabolic encephalopathy; I26.99 Other pulmonary embolism without acute cor pulmonale; M86.8X7 Other osteomyelitis, ankle and foot; I13.0 Hypertensive heart and chronic kidney disease with heart failure and stage 1 through stage 4 chronic kidney disease, or unspecified chronic kidney disease; M86.671 Other chronic osteomyelitis, right ankle and foot; I50.40 Unspecified combined systolic (congestive) and diastolic (congestive) heart failure; B96.89 Other specified bacterial agents as the cause of diseases classified elsewhere; R09.02 Hypoxemia; E86.0 Dehydration; I25.10 Atherosclerotic heart disease of native coronary artery without angina pectoris; I73.9 Peripheral vascular disease, unspecified; N18.9 Chronic kidney disease, unspecified; E11.22 Type 2 diabetes mellitus with diabetic chronic kidney disease; I25.2 Old myocardial infarction; I87.2 Venous insufficiency (chronic) (peripheral); I70.0 Atherosclerosis of aorta; E11.42 Type 2 diabetes mellitus with diabetic polyneuropathy; Z79.4 Long term (current) use of insulin; Z79.01 Long term (current) use of anticoagulants; Z66 Do not resuscitate; Z87.891 Personal history of nicotine dependence; Z95.1 Presence of aortocoronary bypass graft; Z95.5 Presence of coronary angioplasty implant and graft; Z89.431 Acquired absence of right foot; Z86.718 Personal history of other venous thrombosis and embolism
CPT/HCPCS: 36415; 36416; 51701; 51702; 70450; 71045; 71275; 73620; 80053; 80061; 80202; 80306; 81001; 82533; 82550; 82728; 82962; 83036; 83540; 83550; 83605; 83615; 83880; 84145; 84443; 84484; 85025; 85049; 85378; 85651; 85730; 86140; 86403; 87040; 87077; 87086; 87186; 87205; 87426; 87449; 87641; 92610; 93005; 93306; 94640; 96365; 96367; 96372; 97161; 97167; 97530; 97535; 99285; J1100; J1644; J1650; J1815; J1940; J2543; J3370; J7030; J7050; Q9967